=== PATIENT | female | born 1945 | race Caucasian/White ===

== ENCOUNTER 2021-07-14 18:10 | Inpatient (IN) ==
[2021-07-14] MEDS ORDERED: SODIUM CHLORIDE 0.9% 1000ML 1,000 ML IV ONE ×2 (18:16→19:16)
[2021-07-14] MEDS ORDERED: ONDANSETRON INJ 2 MG/ML 2 ML VIAL IV STA (18:16)
[2021-07-14] MEDS ORDERED: fentaNYL citrate 100 MCG/2 ML VIAL IV STA (18:16)
[2021-07-14] MEDS ORDERED: fentaNYL citrate 100 MCG/2 ML VIAL IV PRN (18:16)
--- NOTE | 2021-07-14 18:26 | Emergency Department Note ---
Impression & Plan Small bowel obstruction, Leukocytosis, Lactic acidosis ED Provider Note Name: FAUSTO WOODS Age: 75 Sex: F Arrives Via: Ambulance Informant: Patient, ED Provider: Bereket Rivers MD Chief Complaint: Abdominal pain Impression: As per impressions above Medical Decision Makin-year-old female with past medical history as below who has had previous ashu cystectomy and hysterectomy arrives for evaluation of diffuse abdominal pain. She is quite uncomfortable with primary pain along the left abdomen. She was given multiple rounds of IV pain medications and antiemetics with some improvement. Her CT scan does reveal evidence of small bowel obstruction. Unfortunately cannot use IV dye due to her allergies. I did obtain labs along with a lactic acid revealing an elevated white blood cell count and elevated lactic acid. I will note that I discussed the findings of CT scan with general surgery and they have advised hospitalization and will review the imaging. Patient did have an NG tube placed after some significant difficulty but after placement well over 700 mL output relatively quickly. Patient is feeling much better and stable. The hospitalist team was in to evaluate her while NG tube is being placed and all are on board with plan. I will note that with patient's elevated white blood cell count and her lactic acidosis there is concern for early sepsis. I would think more likely this is due to significant dehydration from inability have oral intake and persistent vomiting. She does not currently have any evidence of perforation. She does have this elevated lactate which would be a concern for ischemia I would also go with dehydration. The plan is to give hydration and monitor how lactic acid moves as well as monitor patient is pain and comfort level. Bedside given these findings she was given empiric antibiotics. Prior Medical Record and Triage/Nursing Notes reviewed by Me Additional history obtained from chart and EMS and hospital records Differentials:Small bowel obstruction, aortic pathology, ischemic gut, renal pathology, biliary pathology, volvulus, pancreatitis amongst others Vital Signs: reviewed and remarkable for no significant abnormalities Interventions: See Below Given the patients BMI >30, IBW was used to calculate the 30ml/kg fluid bolus, thus the 2 L NSS bolus was felt appropriate management for her initial fluid resusciation. Labs:Reviewed and remarkable for leukocytosis and lactic acidosis Imaging:CT abdomen pelvis reveals small bowel obstruction without evidence of perforation as per radiologist read EKG:Per My Interpretation: Indication abdominal pain and vomiting: NSR 67bpm, qtc 464. No Ectopy. No Ischemia. Compared to EKG September 03, 1996, no significant changes. Consults:Dr. Bower of general surgery and Dr. Parekh of [facility]ist Plan: Disposition:Hospitalization. Condition: Fair History of Present Illness:75-year-old female arrives for evaluation of abdominal pain. Patient notes about 4 days of inability to have a bowel movement.. Today worsening nausea vomiting. Now she is having severe abdominal pain. Pain is primarily along the left side of her abdomen. Radiates through to her back. She states she had a small hard firm bowel movement just prior to EMS arrival. No blood in it. No blood in vomit. No trauma falls injuries. Given Zofran 4 mg prior to arrival without much improvement in her nausea. She notes severe pain currently. Patient denies any difficulty breathing, chest pain, syncope, headache, neck pain, sore throat, leg swelling, urinary symptoms nor other symptoms. She has had no recent surgeries on her stomach. She does have a history of a cholecystectomy and a hysterectomy. Patient notes a history of diverticulitis many years ago and notes this may be similar. ROS: See above HPI for pertinent positives & negatives. A total of 10 systems reviewed and were otherwise negative. Past Medical History:Hemochromatosis, hyperlipidemia, hypertension, nephrolithiasis, sleep apnea, type 2 diabetes, anxiety, depression Past Surgical History:Bilateral hip replacement, cystectomy, gallbladder rem oval, hysterectomy, tubal ligation Family History:Glaucoma, hypertension, stroke, type 2 diabetes Social History:Patient is a former smoker, occasional alcoho Home Medications:Aspirin, atenolol, atorvastatin, cardiac, Flutex, Fexofenadine Hydrochloride Allergy fluoxetine, gabapentin, hydrochlorothiazide, losartan, Metformin, multivitamin, trazodone, Tylenol Allergies:You Docktor in all, IV dye Vitals:Blood Pressure: 156/74, Pulse 66, RR 24, T 36.5C, O2 98% on RA Physical Exam: GENERAL: Patient is severely uncomfortable appearing and in moderate distress. EYES: No scleral icterus, unremarkable pupils. ENT: Mucous membranes moist, no nasal congestion. NECK: No masses appreciated, nomeningismus, trachea is midline. RESPIRATORY: No dyspnea. Clear to auscultation and equal bilaterally. No wheeze, no rhonchi. CARDIOVASCULAR: Regular rate and rhythm.No murmurs, rubs, gallops appreciated. GASTROINTESTINAL: Diffuse left sided TTP, with hyperactive bowel sounds no no overt peritonitis. She has no masses appreciated BACK: No midline tenderness, no CVA tenderness EXTREMITIES: Normal motion all extremities, no cyanosis, no edema. NEUROLOGIC: Alert and oriented, no acute motor or sensory deficits, no focal weakness, cranial nerves grossly intact. SKIN: No rash, no jaundice, no diaphoresis. PSYCH: Appropriate GCS: 15 ED Course: Times/Reassessments: Gradually improving pain however continued nausea and agreeable to NG tube after determination SBO. NG tube eventually placed after some difficulty and was confirmed by chest x-ray along with 700+ output. General surgery and hospitalist on board with plan as is patient Bereket Rivers MD Past Med/Surg History Medical History Anxiety Asthma DMII (diabetes mellitus, type 2) HLD (hyperlipidemia) HTN (hypertension) 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 Surgical History H/O: hysterectomy History of cholecystectomy Social History Smoking Status: Never smoker Tobacco Type: Cigarettes Second Hand Exposure: No; Do You Dip or Chew Tobacco: No; Hx Alcohol Use: Yes Alcohol type: wine Hx Substance Use: No Preferred Language: Tajik Communication Ability: Effective Beliefs That Will Affect Care: None Current Living Situation: Spouse Other Information That Helps Us Care for You: No Feels Safe at Home: Yes Safety Concerns: Feels Safe At This Time Assistive Devices: None Assistive Devices Comment: glasses not with patient Allergies Allergies Allergy/AdvReac Type Severity Reaction Status Date / Time Iodinated Contrast Media Allergy Severe Anaphylaxis Verified 07/14/21 18:51 butorphanol [From Stadol] AdvReac Severe HALLUCINATI Verified 07/14/21 18:51 ONS codeine AdvReac Intermediate Gastrointestinal Verified 07/14/21 18:51 Upset Home Meds Home Medications Medication Instructions Recorded Confirmed albuterol sulfate 90 mcg/actuation 1 puff INHALATION DIRECTED PRN 07/14/21 07/14/21 aerosol inhaler atorvastatin 40 mg tablet 40 mg PO DAILY 07/14/21 07/14/21 diltiazem HCl 300 mg 300 mg PO DAILY 07/14/21 07/14/21 capsule,extended release 24 hr fluoxetine 40 mg capsule 40 mg PO DAILY 07/14/21 07/14/21 gabapentin 300 mg capsule 300 mg PO DAILY 07/14/21 07/14/21 metformin 500 mg tablet 1,000 mg PO BID 07/14/21 07/14/21 mupirocin 2 % topical ointment 1 applic TOPICAL DIRECTED 07/14/21 07/14/21 trazodone 50 mg tablet 50 mg PO HS PRN 07/14/21 07/14/21 Results & Data (ED) Vital Signs Vital Signs - 24 hr 07/14/21 18:18 07/14/21 20:58 Temperature 36.5 C Temperature Source Oral Pulse Rate 66 Pulse Rate [Finger] 80 Pulse Rhythm Regular Pulse Rhythm [Finger] Regular Pulse Strength Normal Pulse Strength [Finger] Normal Respiratory Rate 24 18 Respiratory Effort / Characteristics Non-Labored Non-Labored Spontaneous Respiratory Depth Normal Normal Respiratory Pattern Regular Blood Pressure 156/74 H Blood Pressure [Right Arm] 144/79 H Blood Pressure Mean 101 Blood Pressure Mean [Right Arm] 100 Blood Pressure Position Lying Blood Pressure Position [Right Arm] Lying Pulse Oximetry 98 97 Oxygen Delivery Method Room Air Nasal Cannula Oxygen Flow Rate 2 Sepsis Recent Fever Within 48 Hours No Sepsis New/Unexplained Change in Mental Status No Sepsis Action Taken by Nursing No Action Required Laboratory Data Result diagrams: 07/15/21 05:16 07/15/21 05:16 Lab Results 07/14/21 07/14/21 07/14/21 Range/Units 19:02 19:02 19:02 WBC 26.67 H (4.8-10.8) K/uL RBC 4.04 L (4.2-5.4) M/uL Hgb 12.4 (12.0-16.0) g/dL Hct 36.0 L (37-47) % MCV 89.1 (80-100) fL MCH 30.7 (25-34) pg MCHC 34.4 (32-36) g/dL RDW Std Deviation 43.4 (36.4-46.3) fL RDW Coeff of Tayo 13.1 (11.5-14.5) % Plt Count 329 (130-400) K/uL MPV 10.1 (7.4-10.4) fL Immature Gran % (Auto) 0.4 % Neut % (Auto) 87.8 % Lymph % (Auto) 4.5 % Barbour % (Auto) 7.0 % Eos % (Auto) 0.2 % Baso % (Auto) 0.1 % Neut # (Auto) 23.42 H (1.4-6.5) K/uL Lymph # (Auto) 1.20 (1.2-3.4) K/uL Barbour # (Auto) 1.87 H (0.11-0.59) K/uL Eos # (Auto) 0.05 (0-0.5) K/uL Baso # (Auto) 0.02 (0-0.2) K/uL Immature Gran # (Auto) 0.11 H (0.00-0.02) K/uL Sodium 136 (136-145) mmol/L Potassium 3.8 (3.5-5.1) mmol/L Chloride 102 (98-107) mmol/L Carbon Dioxide 21 (21-32) mmol/L Anion Gap 13 H (3-11) BUN 29 H (6-23) mg/dl Creatinine 1.18 (0.6-1.2) mg/dl Est Cr Clr Drug Dosing 43.1 ml/min Est GFR ( Amer) 53.0 ml/min Est GFR (Non-Af Amer) 45.7 ml/min BUN/Creatinine Ratio 24.6 H (10-20) Glucose 143 H (70-99(Fasting)) mg/dl Lactate (0.4-2.0) mmol/L Calcium 9.5 (8.5-10.1) mg/dl Total Bilirubin 0.5 (0.2-1.0) mg/dl Direct Bilirubin 0.1 (0-0.2) mg/dl AST 24 (13-39) U/L ALT 23 (7-52) U/L Alkaline Phosphatase 88 (34-104) U/L Troponin I < 0.03 (0-0.04) ng/ml Total Protein 7.8 (6.0-8.3) gm/dl Albumin 4.4 (3.4-5.0) gm/dl Lipase 32 (11-82) U/L Hepatitis C Ab Screen Neg (Neg) SARS-CoV-2, RNA, NAAT (NEGATIVE) 07/14/21 07/14/21 Range/Units 19:46 20:56 WBC (4.8-10.8) K/uL RBC (4.2-5.4) M/uL Hgb (12.0-16.0) g/dL Hct (37-47) % MCV (80-100) fL MCH (25-34) pg MCHC (32-36) g/dL RDW Std Deviation (36.4-46.3) fL RDW Coeff of Tayo (11.5-14.5) % Plt Count (130-400) K/uL MPV (7.4-10.4) fL Immature Gran % (Auto) % Neut % (Auto) % Lymph % (Auto) % Barbour % (Auto) % Eos % (Auto) % Baso % (Auto) % Neut # (Auto) (1.4-6.5) K/uL Lymph # (Auto) (1.2-3.4) K/uL Barbour # (Auto) (0.11-0.59) K/uL Eos # (Auto) (0-0.5) K/uL Baso # (Auto) (0-0.2) K/uL Immature Gran # (Auto) (0.00-0.02) K/uL Sodium (136-145) mmol/L Potassium (3.5-5.1) mmol/L Chloride (98-107) mmol/L Carbon Dioxide (21-32) mmol/L Anion Gap (3-11) BUN (6-23) mg/dl Creatinine (0.6-1.2) mg/dl Est Cr Clr Drug Dosing ml/min Est GFR ( Amer) ml/min Est GFR (Non-Af Amer) ml/min BUN/Creatinine Ratio (10-20) Glucose (70-99(Fasting)) mg/dl Lactate 3.1 H* (0.4-2.0) mmol/L Calcium (8.5-10.1) mg/dl Total Bilirubin (0.2-1.0) mg/dl Direct Bilirubin (0-0.2) mg/dl AST (13-39) U/L ALT (7-52) U/L Alkaline Phosphatase (34-104) U/L Troponin I (0-0.04) ng/ml Total Protein (6.0-8.3) gm/dl Albumin (3.4-5.0) gm/dl Lipase (11-82) U/L Hepatitis C Ab Screen (Neg) SARS-CoV-2, RNA, NAAT NEGATIVE (NEGATIVE) Administered Medications Heparin Sodium (Porcine) (Heparin Sod 5,000 Unit/0.5 Ml Vial) 5,000 units SQ Q12 RAINE Stop: 08/13/21 22:52 Last Admin: 07/15/21 10:05 Dose: 5,000 units Documented by: [id number] Admin: 07/14/21 23:52 Dose: 5,000 units Documented by: [id number] Hydromorphone HCl (Hydromorphone Inj 0.5 Mg/0.5 Ml Syr) 0.25 mg IV Q4 PRN PRN Reason: Pain Stop: 07/28/21 22:52 Last Admin: 07/15/21 13:52 Dose: 0.25 mg Documented by: [id number] Admin: 07/15/21 07:39 Dose: 0.25 mg Documented by: [id number] Admin: 07/15/21 02:44 Dose: 0.25 mg Documented by: [id number] Lactated Ringer's (Lr) 1,000 mls @ 100 mls/hr IV .Q10H RAINE Stop: 08/13/21 20:59 Last Admin: 07/15/21 15:12 Dose: 100 mls/hr Documented by: [id number] Infusion: 07/15/21 15:12 Dose: 100 mls/hr Documented by: [id number] Infusion: 07/15/21 15:08 Dose: 100 mls/hr Documented by: [id number] Admin: 07/15/21 07:39 Dose: 110 mls/hr Documented by: [id number] Infusion: 07/15/21 07:39 Dose: 110 mls/hr Documented by: [id number] Admin: 07/14/21 23:12 Dose: 110 mls/hr Documented by: [id number] Mupirocin (Mupirocin 2% Oint 22 Gm Tube) 1 appln EXT BID RAINE Stop: 08/14/21 08:59 Last Admin: 07/15/21 10:05 Dose: 1 appln Documented by: [id number] Ondansetron HCl (Ondansetron Inj 2 Mg/Ml 2 Ml Vial) 4 mg IV Q8 PRN PRN Reason: nausea/vomiting Stop: 08/13/21 21:10 Last Admin: 07/15/21 02:41 Dose: 4 mg Documented by: [id number] Discontinued Medications Fentanyl Citrate (Fentanyl Citrate 100 Mcg/2 Ml Vial) 50 mcg IV Q15M PRN PRN Reason: Pain Stop: 07/28/21 18:15 Last Admin: 07/14/21 19:00 Dose: 50 mcg Documented by: [id number] Fentanyl Citrate (Fentanyl Citrate 100 Mcg/2 Ml Vial) 50 mcg IV NOW STA Stop: 07/14/21 18:17 Last Admin: 07/14/21 18:24 Dose: 50 mcg Documented by: [id number] Hydromorphone HCl (Hydromorphone Inj 0.5 Mg/0.5 Ml Syr) 0.5 mg IV NOW STA Stop: 07/14/21 19:31 Last Admin: 07/14/21 20:12 Dose: 0.5 mg Documented by: [id number] Sodium Chloride (Nss 1000ml) 1,000 mls @ 999 mls/hr IV .Q1H1M ONE Stop: 07/14/21 19:16 Last Infusion: 07/14/21 21:32 Dose: 0 mls/hr Documented by: [id number] Admin: 07/14/21 18:24 Dose: 999 mls/hr Documented by: [id number] Promethazine HCl (Phenergan) 12.5 mg in 50.5 mls @ 202 mls/hr IV NOW STA Stop: 07/14/21 19:20 Last Infusion: 07/14/21 19:37 Dose: 0 mls/hr Documented by: [id number] Admin: 07/14/21 19:13 Dose: 202 mls/hr Documented by: [id number] Sodium Chloride (Nss 1000ml) 1,000 mls @ 999 mls/hr IV .Q1H1M ONE Stop: 07/14/21 20:16 Last Infusion: 07/14/21 21:32 Dose: 0 mls/hr Documented by: [id number] Admin: 07/14/21 20:12 Dose: 999 mls/hr Documented by: [id number] Sodium Chloride (Nss 1000ml) 500 mls @ 999 mls/hr IV .Q31M ONE Stop: 07/14/21 20:49 Last Admin: 07/14/21 23:29 Dose: Not Given Documented by: [id number] Piperacillin Sod/Tazobactam Sod (Zosyn) 4.5 gm in 120 mls @ 240 mls/hr IV NOW ONE Stop: 07/14/21 20:48 Last Infusion: 07/14/21 21:32 Dose: 0 mls/hr Documented by: [id number] Admin: 07/14/21 20:52 Dose: 240 mls/hr Documented by: [id number] Piperacillin Sod/Tazobactam (Sod 3.375 gm/ Dextrose) 115 mls @ 28.75 mls/hr IV Q8H RAINE; Protocol Stop: 07/25/21 01:59 Last Infusion: 07/15/21 13:48 Dose: 0 mls/hr Documented by: [id number] Admin: 07/15/21 10:05 Dose: 28.8 mls/hr Documented by: [id number] Infusion: 07/15/21 06:45 Dose: 0 mls/hr Documented by: [id number] Admin: 07/15/21 02:45 Dose: 28.8 mls/hr Documented by: [id number] Magnesium Sulfate/Dextrose (Magnesium Sulfate / D5w) 1 gm in 100 mls @ 50 mls/hr IV Q2H RAINE Stop: 07/15/21 14:44 Last Admin: 07/15/21 13:45 Dose: 50 mls/hr Documented by: [id number] Infusion: 07/15/21 13:36 Dose: 50 mls/hr Documented by: [id number] Admin: 07/15/21 11:36 Dose: 50 mls/hr Documented by: [id number] Lorazepam (Lorazepam 2 Mg/1 Ml Vial) 0.5 mg IV NOW STA Stop: 07/14/21 19:31 Last Admin: 07/14/21 20:12 Dose: 0.5 mg Documented by: [id number] Lorazepam (Lorazepam 2 Mg/1 Ml Vial) 0.5 mg IV NOW STA Stop: 07/14/21 21:33 Last Admin: 07/14/21 21:36 Dose: 0.5 mg Documented by: [id number] Ondansetron HCl (Ondansetron Inj 2 Mg/Ml 2 Ml Vial) 4 mg IV NOW STA Stop: 07/14/21 18:17 Last Admin: 07/14/21 18:24 Dose: 4 mg Documented by: [id number] Discharge Plan Visit Data Chief Complaint: Abdominal Pain ED Provider: Bereket Rivers Discharge Problem: Small bowel obstruction, Leukocytosis, Lactic acidosis Patient Disposition: Admitted As Inpatient Discharge Instructions Interventions: ED Discharge Assessment Last Done: 07/14/21 22:14 Discharge Problem: Leukocytosis Qualifiers: Leukocytosis type: unspecified Qualified Code(s): D72.829 - Elevated white blood cell count, unspecified
[2021-07-14] MEDS ORDERED: PROMETHAZINE 12.5 MG/50.5 ML BAG IV STA (19:06)
[2021-07-14 19:12] LABS: Hemoglobin 12.4 g/dL (12.0-16.0); Mean Corpuscular Hemoglobin 30.7 pg (25-34); Mean Corpuscular Hgb Conc 34.4 g/dL (32-36); Mean Corpuscular Volume 89.1 fL (80-100); Mean Platelet Volume 10.1 fL (7.4-10.4); Platelet Count 329 K/uL (130-400); RDW Coefficient of Variation 13.1 % (11.5-14.5); RDW Standard Deviation 43.4 fL (36.4-46.3); Red Blood Count 4.04 M/uL (4.2-5.4); White Blood Count 26.67 K/uL (4.8-10.8)
--- NOTE | 2021-07-14 19:22 | CT Scan Report ---
ABDOMEN AND PELVIS CT WITHOUT CONTRAST CT DOSE: 541.02 mGy.cm HISTORY: Acute generalized abdominal pain diffuse abdominal pain TECHNIQUE: Multiaxial CT images of the abdomen and pelvis were performed without contrast. A dose lo wering technique was utilized adhering to the principles of ALARA. COMPARISON STUDY: Chest and rib radiographs 05/05/2021 FINDINGS: The heart is upper limits of normal in size. Mild bibasilar atelectasis/scarring. 5 mm steve d nodule of the lateral basal segment left lower lobe, image 47. No pneumatosis or pneumoperitoneum. The unenhanced spleen, pancreas and adrenal glands are unremarkable. Cholecystectomy. Intrahepatic an d extrahepatic pneumobilia is suggestive of prior sphincterotomy. The liver is otherwise unremarkable . Parenchymal scarring with linear 8 mm cortical calcification of the superior pole left kidney. No ure teral calculi or hydronephrosis. Partially decompressed or bladder with mild wall thickening. The lakeisha jeremy appears surgically absent. Suboptimal evaluation of the pelvic structures secondary to streak art ifact from bilateral hip total joint arthroplasties. Atherosclerosis of the aorta without aneurysm. N o adenopathy. Small hiatal hernia. Fluid distended distal esophagus. Numerous mildly dilated air and fluid-filled l oops of small bowel measure up to 3.0 cm. Air-fluid levels are noted along with several stool-filled loops of small bowel. There is a transition point noted within the abdominal right lower quadrant on image 228 with decompressed loops of small bowel noted distally. Severe colonic diverticulosis withou t acute diverticulitis. Normal appendix. Unremarkable soft tissues. Degenerative changes of the spine . IMPRESSION: 1. Small bowel obstruction with transition point present within the abdominal right lower quadrant, l ikely on the basis of adhesions. 2. Small hiatal hernia. 3. Normal appendix. 4. Colonic diverticulosis. 5. Additional findings as above. ACT 112: Negative or not required by law. The above report was generated using voice recognition software. It may contain grammatical, syntax o r spelling errors. Electronically signed by: Prakash Dia M.D. 07/14/2021 7:20 PM
[2021-07-14] MEDS ORDERED: HYDROmorphone INJ 0.5 MG/0.5 ML SYR IV STA (19:30)
[2021-07-14] MEDS ORDERED: LORazepam 2 MG/1 ML VIAL IV STA ×2 (19:30→21:32)
[2021-07-14 19:38] LABS: Troponin I < 0.03 ng/ml (0-0.04)
[2021-07-14 19:39] LABS: Basophils # (auto) 0.02 K/uL (0-0.2); Basophils % (auto) 0.1 %; Eosinophils # (auto) 0.05 K/uL (0-0.5); Eosinophils % (auto) 0.2 %; Immature Granulocytes # (auto) 0.11 K/uL (0.00-0.02); Immature Granulocytes % (auto) 0.4 %; Lymphocytes % (auto) 4.5 %; Monocytes # (auto) 1.87 K/uL (0.11-0.59); Neutrophils # (auto) 23.42 K/uL (1.4-6.5); Neutrophils % (auto) 87.8 %
[2021-07-14 19:41] LABS: Alanine Aminotransferase 23 U/L (7-52); Albumin Level 4.4 gm/dl (3.4-5.0); Alkaline Phosphatase 88 U/L (34-104); Anion Gap 13 (3-11); Aspartate Aminotransferase 24 U/L (13-39); BUN Creatinine Ratio 24.6 (10-20); Bilirubin Direct 0.1 mg/dl (0-0.2); Bilirubin,Total 0.5 mg/dl (0.2-1.0); Blood Urea Nitrogen 29 mg/dl (6-23); Calcium 9.5 mg/dl (8.5-10.1); Carbon Dioxide 21 mmol/L (21-32); Chloride 102 mmol/L (98-107); Creatinine Clr Calc Pharmacy 43.1 ml/min; Est GFR (Non-African American) 45.7 ml/min; Glucose 143 mg/dl (70-99(Fasting)); Lipase 32 U/L (11-82); Potassium 3.8 mmol/L (3.5-5.1); Sodium 136 mmol/L (136-145); Total Protein 7.8 gm/dl (6.0-8.3)
--- NOTE | 2021-07-14 19:59 | Communication Note ---
75 y/o with mult med problems, presented with abdominal pain. Prior surgery. CT reviewed, sbo with transition in RLQ, no e/o ischemia. Elevated wbc, likely reactive. Recommend NG, admit to medicine. Surgery will follow. Date of Service: July 14, 2021
[2021-07-14] MEDS ORDERED: SODIUM CHLORIDE 0.9% 1000ML 500 ML IV ONE (20:19)
[2021-07-14] MEDS ORDERED: PIPERACILLIN/TAZOBACTAM 4.5 GM/120 ML BAG IV ONE (20:19)
[2021-07-14] MEDS ORDERED: PIPERACILL/TAZOBAC CONSULT ACTIVE PRN ×2 (20:19→20:53)
--- NOTE | 2021-07-14 21:02 | XRay Report ---
XR chest 1V portable HISTORY: 75 years-old Female ng tube placement status post placement of an enteric tube. Small bowel obstruction. COMPARISON: CT abdomen and pelvis of same day, chest radiograph 05/05/2021 TECHNIQUE: AP view of the chest FINDINGS: Enteric tube overlies the midline of the upper chest, approximately 2.8 cm superior to the james. Th e cardiac silhouette is enlarged. Cholecystectomy. Air-filled loops of bowel are noted within the upp er abdomen. Filling apices are excluded from the [id number]. No pneumothorax, large pleural effusi on or overt pulmonary edema. Mild subsegmental bibasilar atelectasis/scarring. IMPRESSION: Distal tip of the enteric tube projects over the midline of the upper chest a few centime ters superior to the james. Repositioning with follow-up imaging recommended. ACT 112: Negative or not required by law. The above report was generated using voice recognition software. It may contain grammatical, syntax o r spelling errors. Electronically signed by: Prakash Dia M.D. 07/14/2021 9:00 PM
--- NOTE | 2021-07-14 21:34 | History & Physical Report ---
Date of Service July 14, 2021 Assessment & Plan (1) SBO (small bowel obstruction): Plan: Actue pain with bloating- SBO with transition point no perforation appreciated on CT scan - GS consultation - appreciate following - NGT initially placed- not in correct position- Repositioned with Xray confirmation- read pending. - Consider contrast with small bowel follow through within 24-48 hours further evaluation - NPO - LR 110 ml/hr - Zosyn- follow leukocytosis and lactate- likely acute stress response to the above - cultures pending (2) 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: Plan: History of around 2014- with emergency medical services coordinator in [place] - She was placed on Diltiazem at that time with no re-occurence - was never on anticoagulation for this - NSR on monitor (3) DMII (diabetes mellitus, type 2): Plan: Hold Metformin - BG q6 hours - add coverage if >180 (4) HLD (hyperlipidemia): Plan: Continue Atorvastatin 40 daily (5) Asthma: Plan: Continue albuterol prn (6) Anxiety: Plan: Continue Fluoxetine (7) HTN (hypertension): Plan: Family practice note from Jul 02, 2021 - Patient on HCTZ and Losartan - Can add IV PRN medications if needed - currently controlled (8) Keratosis: Plan: Continue with mupirocin 2% cream to chest History of Present Illness Primary Care Provider: Rashard Elaine 75 YOF with past medical history of: 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 (? PAF), HLD, asthma, DM II, DM neuropathy, anxiety, difficulty sleeping, hemochromatosis. Patient comes to the EMD today for abrupt onset of abdominal pain and bloating that occurred at 1600 today. This was followed by sharp pain on both sides of her abdomen and feeling the urge to defecate. She was unable to defecate and then had multiple bouts of yellow green emesis. In the EMD the patient had routine labs drawn, and CT of her abdomen and pelvis without contrast. She was noted to have SBO with transition point and hiatal hernia, diverticulosis without diverticulitis. She has had some with relief of nausea and decrease in abdominal bloating feeling per her report. NGT placed. Her labs were remarkable for leukocytosis of 26 predominant neutrophils, lactate 3.1. She was given 2 liters of 0.9% saline and started on Zosyn. General Surgery was consulted by the EMD. Patient has past abdominal surgical history of cholecystectomy and hysterectomy. She thinks she may have had this occur before, but is drowsy from the pain medications. Patient will be admitted for continuation of NGT to LIWS, IV fluids with LR, bowel rest with NPO and continuation of Zosyn while following her WBC and lactate, which is most likely at this time acute stress reaction but will follow clinically. Patient COVID test on admission is: NEGATIVE Allergies Allergy/AdvReac Type Severity Reaction Status Date / Time Iodinated Contrast Media Allergy Severe Anaphylaxis Verified 07/14/21 18:51 butorphanol [From Stadol] AdvReac Severe HALLUCINATI Verified 07/14/21 18:51 ONS codeine AdvReac Intermediate Gastrointestinal Verified 07/14/21 18:51 Upset Home Medications Medication Instructions Recorded Confirmed Type albuterol sulfate 90 mcg/actuation 1 puff INHALATION DIRECTED PRN 07/14/21 07/14/21 History aerosol inhaler atorvastatin 40 mg tablet 40 mg PO DAILY 07/14/21 07/14/21 History diltiazem HCl 300 mg 300 mg PO DAILY 07/14/21 07/14/21 History capsule,extended release 24 hr fluoxetine 40 mg capsule 40 mg PO DAILY 07/14/21 07/14/21 History gabapentin 300 mg capsule 300 mg PO DAILY 07/14/21 07/14/21 History metformin 500 mg tablet 1,000 mg PO BID 07/14/21 07/14/21 History mupirocin 2 % topical ointment 1 applic TOPICAL DIRECTED 07/14/21 07/14/21 History trazodone 50 mg tablet 50 mg PO HS PRN 07/14/21 07/14/21 History Past Med/Surg History Medical History (Updated 07/14/21 @ 22:12 by NIKUNJ Avila) Anxiety Asthma DMII (diabetes mellitus, type 2) HLD (hyperlipidemia) HTN (hypertension) 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 Surgical History (Updated 07/14/21 @ 21:29 by NIKUNJ Avila) H/O: hysterectomy History of cholecystectomy Social History (Updated 07/14/21 @ 21:48 by NIKUNJ Avila) Smoking Status: Former smoker Tobacco Type: Cigarettes Preferred Language: French Feels Safe at Home: Yes Review of Systems Review of Systems: REVIEW OF SYSTEMS: Constitutional: No fever, sweats or chills Eyes: No diplopia, no worsening or blurred vision ENT: normal hearing, no trouble swallowing Respiratory: No cough, sputum, dyspnea at rest or on exertion Cardiovascular: No chest pain, tightness or palpitations Abdomen: (+) bloating, pain, nausea, vomiting, Musculoskeletal: No joint pain, calf pain, swelling Neurologic: No weakness, numbness/tingling, or balance problems Psychiatric: (+) anxiety Skin: (+) rash lesions Physical Exam Physical Exam: PHYSICAL EXAM: General: awake, drowsy, no apparent distress Head: Normocephalic, atraumatic ENT: PERRL, EOMI, no pharyngeal exudate, mucous membranes dry Neuro: AAO x 3, speech clear and appropriate, strength intact bilaterally 5/5, sensation intact and equal all extremities and dermatomes, no pronator drift Chest: equal rise and fall of the chest, no accessory muscle use, no heaves or thrills, Clear to auscultation, Cardiac: Regular rate and rhythm, telemetry reviewed, skin warm dry, cap refill <3 seconds, peripheral pulses +2 no JVD, no murmur, no JVD, no edema GI: Hypoactive bowel sounds throughout, tympany on percussion, pain with palpation to bilateral upper quads, no rebound and no guarding : Spontaneously voiding, no pain, no CVA tenderness, Extremities: Normal inspection, no peripheral edema or erythema, calfs nontender to palpation Psych: Normal mood and affect Skin: keratotic lesions to chest and shoulder Results & Data Results & Data ([facility]) Vital Signs (Past 12 Hours) Vital Signs Temp Pulse Pulse Resp BP BP Pulse Ox 07/14/21 20:58 80 18 144/79 H 97 07/14/21 18:18 36.5 C 66 24 156/74 H 98 Laboratory Results Abnormal lab results 07/14/21 07/14/21 07/14/21 Range/Units 19:02 19:02 19:46 WBC 26.67 H (4.8-10.8) K/uL RBC 4.04 L (4.2-5.4) M/uL Hct 36.0 L (37-47) % Neut # (Auto) 23.42 H (1.4-6.5) K/uL [place] # (Auto) 1.87 H (0.11-0.59) K/uL Immature Gran # (Auto) 0.11 H (0.00-0.02) K/uL Anion Gap 13 H (3-11) BUN 29 H (6-23) mg/dl BUN/Creatinine Ratio 24.6 H (10-20) Glucose 143 H (70-99(Fasting)) mg/dl Lactate 3.1 H* (0.4-2.0) mmol/L Diagnostic Findings Abdomen/Pelvis CT 07/14/21 18:[address] WITHOUT CONTRAST CT DOSE: 541.02 mGy.cm HISTORY: Acute generalized abdominal pain diffuse abdominal pain TECHNIQUE: Multiaxial CT images of the abdomen and pelvis were performed without contrast. A dose lowering technique was utilized adhering to the principles of ALARA. COMPARISON STUDY: Chest and rib radiographs 05/05/2021 FINDINGS: The heart is upper limits of normal in size. Mild bibasilar atelectasis/scarring. 5 mm solid nodule of the lateral basal segment left lower lobe, image 47. No pneumatosis or pneumoperitoneum. The unenhanced spleen, pancreas and adrenal glands are unremarkable. Cholecystectomy. Intrahepatic and extrahepatic pneumobilia is suggestive of prior sphincterotomy. The liver is otherwise unremarkable. Parenchymal scarring with linear 8 mm cortical calcification of the superior pole left kidney. No ureteral calculi or hydronephrosis. Partially decompressed or bladder with mild wall thickening. The uterus appears surgically absent. Suboptimal evaluation of the pelvic structures secondary to streak artifact from bilateral hip total joint arthroplasties. Atherosclerosis of the aorta without aneurysm. No adenopathy. Small hiatal hernia. Fluid distended distal esophagus. Numerous mildly dilated air and fluid-filled loops of small bowel measure up to 3.0 cm. Air-fluid levels are noted along with several stool-filled loops of small bowel. There is a transition point noted within the abdominal right lower quadrant on image 228 with decompressed loops of small bowel noted distally. Severe colonic diverticulosis without acute diverticulitis. Normal appendix. Unremarkable soft tissues. Degenerative changes of the spine. IMPRESSION: 1. Small bowel obstruction with transition point present within the abdominal right lower quadrant, likely on the basis of adhesions. 2. Small hiatal hernia. 3. Normal appendix. 4. Colonic diverticulosis. 5. Additional findings as above. ACT 112: Negative or not required by law. The above report was generated using voice recognition software. It may contain grammatical, syntax or spelling errors. Electronically signed by: Prakash Dia M.D. 07/14/2021 7:20 PM Chest X-Ray 07/14/21 20:41 XR chest 1V portable HISTORY: 75 years-old Female ng tube placement status post placement of an enteric tube. Small bowel obstruction. COMPARISON: CT abdomen and pelvis of same day, chest radiograph 05/05/2021 TECHNIQUE: AP view of the chest FINDINGS: Enteric tube overlies the midline of the upper chest, approximately 2.8 cm superior to the james. The cardiac silhouette is enlarged. Cholecystectomy. Air-filled loops of bowel are noted within the upper abdomen. Filling apices are excluded from the [id number]. No pneumothorax, large pleural effusion or overt pulmonary edema. Mild subsegmental bibasilar atelectasis/scarring. IMPRESSION: Distal tip of the enteric tube projects over the midline of the upper chest a few centimeters superior to the james. Repositioning with follow- up imaging recommended. ACT 112: Negative or not required by law. The above report was generated using voice recognition software. It may contain grammatical, syntax or spelling errors. Electronically signed by: Prakash Dia M.D. 07/14/2021 9:00 PM Medications Administered Home Medications albuterol sulfate 90 mcg/actuation aerosol inhaler 1 puff INHALATION DIRECTED PRN 07/14/21 [History Confirmed 07/14/21] atorvastatin 40 mg tablet 40 mg PO DAILY 07/14/21 [History Confirmed 07/14/21] diltiazem HCl 300 mg capsule,extended release 24 hr 300 mg PO DAILY 07/14/21 [History Confirmed 07/14/21] fluoxetine 40 mg capsule 40 mg PO DAILY 07/14/21 [History Confirmed 07/14/21] gabapentin 300 mg capsule 300 mg PO DAILY 07/14/21 [History Confirmed 07/14/21] metformin 500 mg tablet 1,000 mg PO BID 07/14/21 [History Confirmed 07/14/21] mupirocin 2 % topical ointment 1 applic TOPICAL DIRECTED 07/14/21 [History Confirmed 07/14/21] trazodone 50 mg tablet 50 mg PO HS PRN 07/14/21 [History Confirmed 07/14/21] Active Medications Fentanyl Citrate (Fentanyl Citrate 100 Mcg/2 Ml Vial) 50 mcg IV Q15M PRN PRN Reason: Pain Stop: 07/28/21 18:15 Last Admin: 07/14/21 19:00 Dose: 50 mcg Documented by: Piperacillin Sod/Tazobactam (Sod 3.375 gm/ Dextrose) 115 mls @ 28.75 mls/hr IV Q8H RAINE; Protocol Stop: 07/25/21 01:59 Lactated Ringer's (Lr) 1,000 mls @ 110 mls/hr IV .Q9H6M RAINE Stop: 08/13/21 20:59 Miscellaneous Information (Piperacill/Tazobac Consult Active) 1 ea N/A UD PRN PRN Reason: Consult Stop: 08/13/21 20:52 Ondansetron HCl (Ondansetron Inj 2 Mg/Ml 2 Ml Vial) 4 mg IV Q8 PRN PRN Reason: nausea/vomiting Stop: 08/13/21 21:10 ECG Additional Comments: Normal sinus rhythm Normal ECG When compared with ECG of 03-SEP-1996 22:21, T wave inversion now evident in Inferior leads T wave amplitude has decreased in Anterior leads Code Status & VTE Plan Code Status CODE: DNR/DNI VTE: SCDS, Heparin 5000 units sub q q12 VTE Prophylaxis Plan VTE Prophylaxis will be ordered: Yes Supervising Physician Co-Signing Physician Notes Patient was seen and examined independently I discussed the case with Enzo CALVIN I reviewed pertinent past medical social family history and also the plan of care and agree with the plan of care. Patient with a distant history of abdominal surgeries including cholecystectomy and hysterectomy presents with a bowel obstruction with signs of physiological distress. Surgical consultation recommended conservative management at this point in time NG tube initial placement was incorrect and replacement is underway fluid support parenteral pain medications. She is fairly comfortable when I saw her she had absent bowel sounds in her abdomen her abdomen was distended and tympanic there is no rebound but she was uncomfortable to examination. Her lungs had decreased breath sounds at the bases likely due to her abdominal distention her heart was regular she is awake alert appropriate. She was started on antibiotics in the emergency department these will be continued ER Zosyn IV fluids and parenteral pain medications as well as antiemetics with surgical team following along with us will be undertaken Any exceptions will be noted below PG Care Time/CCT Total # of Minutes Spent Total Time Spent with Patient: Total time spent is greater than 50% in coordination of care (as documented) at patient's floor/unit and/or counseling patient: Coding Level of Care Code 32076 Initial Inpt Care Lvl 3 Diagnoses SBO (small bowel obstruction) K56.609 DMII (diabetes mellitus, type 2) E11.9 HLD (hyperlipidemia) E78.5 Asthma J45.909 Anxiety F41.9 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 R00.2 HTN (hypertension) I10 Keratosis L57.0
[2021-07-14] MEDS ORDERED: CARBOHYDRATES FOR HYPOGLYCEMIA PO PRN (22:53)
[2021-07-14] MEDS ORDERED: ALBUTEROL HFA 8 GM INHALER INH PRN (22:53)
[2021-07-14] MEDS ORDERED: DEXTROSE 50% 50 ML SYRINGE IV PRN (22:53)
[2021-07-14] MEDS ORDERED: GLUCOSE 40% GEL 15 GM TUBE PO PRN (22:53)
[2021-07-14] MEDS ORDERED: GLUCAGON FOR INJ 1 MG VIAL SQ PRN (22:53)
[2021-07-14] MEDS ORDERED: GLUCOSE 10 TABS/TUBE PO PRN (22:53)
[2021-07-14] MEDS: LACTATED RINGER'S 1,000 ML IV SCH (23:12)
[2021-07-14] MEDS: HEPARIN SOD 5,000 UNIT/0.5 ML VIAL SQ SCH (23:52)
[2021-07-15] MEDS: ONDANSETRON INJ 2 MG/ML 2 ML VIAL IV PRN (02:41)
[2021-07-15] MEDS: HYDROmorphone INJ 0.5 MG/0.5 ML SYR IV PRN ×5 (02:44→23:50)
[2021-07-15] MEDS: PIPERACILLIN/TAZOBACTAM 3.375 GM in DEXTROSE 5% 100 ML IV SCH ×2 (02:45→10:05)
[2021-07-15 03:15] LABS: Appearance Urine Clear (Clear); Bacteria Urine Automated Negative (Negative); Bilirubin Urine Negative (Negative); Blood Urine Negative (Negative); Color Urine Yellow; Epithelial Cell Urine Auto 20-30 /lpf (0-5); Glucose Urine UA Negative (Negative); Ketones Urine Negative (Negative); Leukocyte Esterase Urine 2+ (Negative); Nitrite Urine Negative (Negative); Protein Urine Negative (Negative); RBC Urine Automated 0-4 /hpf (0-4); Specific Gravity Urine 1.021 (1.000-1.030); Urobilinogen Urine Negative (Negative)
[2021-07-15 06:03] LABS: Basophils # (auto) 0.01 K/uL (0-0.2); Basophils % (auto) 0.1 %; Eosinophils # (auto) 0.02 K/uL (0-0.5); Eosinophils % (auto) 0.2 %; Hematocrit (blood only) 32.2 % (37-47); Hemoglobin 10.7 g/dL (12.0-16.0); Immature Granulocytes # (auto) 0.01 K/uL (0.00-0.02); Immature Granulocytes % (auto) 0.1 %; Lymphocytes # (auto) 0.57 K/uL (1.2-3.4); Lymphocytes % (auto) 5.8 %; Mean Corpuscular Hemoglobin 30.1 pg (25-34); Mean Corpuscular Hgb Conc 33.2 g/dL (32-36); Mean Corpuscular Volume 90.7 fL (80-100); Mean Platelet Volume 10.6 fL (7.4-10.4); Monocytes # (auto) 1.27 K/uL (0.11-0.59); Neutrophils # (auto) 7.87 K/uL (1.4-6.5); Neutrophils % (auto) 80.8 %; Platelet Count 294 K/uL (130-400); RDW Coefficient of Variation 13.3 % (11.5-14.5); RDW Standard Deviation 44.3 fL (36.4-46.3); Red Blood Count 3.55 M/uL (4.2-5.4); White Blood Count 9.75 K/uL (4.8-10.8)
[2021-07-15 06:42] LABS: BUN Creatinine Ratio 26.5 (10-20); Calcium 7.6 mg/dl (8.5-10.1); Creatinine Clr Calc Pharmacy 50.6 ml/min; Est GFR (African American) 66.3 ml/min; Est GFR (Non-African American) 57.2 ml/min; Magnesium 1.4 mg/dl (1.7-2.4); Potassium 3.7 mmol/L (3.5-5.1)
--- NOTE | 2021-07-15 07:11 | Surgery Consultation ---
Date of Consultation July 15, 2021 Assessment & Plan (1) SBO (small bowel obstruction): This is a 75y F with a PMH of paroxysmal afib, HLD, asthma, IBS, HTN, DM2 who presents to the [facility] on 07/14/21 with complaints of abdominal pain, associated with nausea/vomiting starting yesterday. Workup in the ER with a CT a/p revealed findings of a small bowel obstruction with transition point present within the abdominal right lower quadrant, likely on the basis of adhesions. WBC initially 29, now 9 on zosyn. Vital signs are stable. On exam abdomen is soft, mildly distended, with pain across mid abdomen. She is noted to have scars from her previous surgeries. She has a past surgical history significant for an open cholecystectomy, hysterectomy, and what sounds like surgery for retained a retained cystic duct stone. NGT is in place draining 250cc bilious fluid in canister. For now we recommend a trial of conservative management, NPO with IVF, NGT for decompression. No plans for acute surgical intervention at this time. We will follow. Supervising Physician Co-Signing Physician Notes Patient seen and examined, labs and imaging reviewed, agree with above. 75-year-old female admitted for small bowel obstructions, likely secondary to adhesions from multiple prior surgeries. She has not passed flatus but is feeling better since placement of the NG tube admission overnight. On exam she is afebrile with stable vitals. Her abdomen is soft, mildly distended, mildly tender to palpation in all 4 quadrants. No guarding or rebound. WBC 9 down from 27. I personally reviewed and interpreted the CT scan and note dilated and some fecalized bowel with a transition point in the right lower quadrant in the mid ileum. Her KUB this morning shows air in the colon and less distention. Small bowel obstruction, appears improved based on imaging but no flatus yet Continue NG tube to low intermittent wall suction, ambulation, continue nonoperative management for now If no improvement within the next 24 to 48 hours, may recommend a contrasted study Surgery will continue to follow, call with questions or concerns History of Present Illness Attending Physician: William Xiong History of Present Illness This is a 75y F with a PMH of paroxysmal afib, HLD, asthma, IBS, HTN, DM2 who pr esents to the [facility] on 07/14/21 with complaints of abdominal pain. Patient reports her pain started yesterday. She woke up and ate oatmeal and a banana around 8am and then took her usual dose of Metamucil around 9:30am. Thereafter she ran some errands and felt like her belly was rumbling and when she got home it developed into a mild belly ache. For dinner she ate a few scallop potatoes without impro vement in symptoms. After dinner her pain progressively worsened rating her discomfort up to a 10/10 in severity across her mid abdomen, associated with nausea/vomiting. She presented to the ER for evaluation. A CT a/p was obtained and revealed a small bowel obstruction with transition point present within the abdominal right lower quadrant, likely on the basis of adhesions. Patient reports + chills and some shortness of breath related to the abdominal pressure/bloating she was having. Her last BM was on Wednesday. She is not passing flatus. She says she will typically go a couple days without having a BM. Her past surgical history includes an open cholecystectomy, hysterectomy, tubal ligation, and what sounds like surgery for retained a retained cystic duct stone. She reports this is the first time she has been told she has a bowel obstruction. She currently is resting in bed with NGT in place with some improvement of her symptoms, less abdominal bloating/nausea, and currently rates pain a 4/10. Allergies Allergy/AdvReac Type Severity Reaction Status Date / Time Iodinated Contrast Media Allergy Severe Anaphylaxis Verified 07/14/21 18:51 butorphanol [From Stadol] AdvReac Severe HALLUCINATI Verified 07/14/21 18:51 ONS codeine AdvReac Intermediate Gastrointestinal Verified 07/14/21 18:51 Upset Home Medications Medication Instructions Recorded Confirmed Type albuterol sulfate 90 mcg/actuation 1 puff INHALATION DIRECTED PRN 07/14/21 07/14/21 History aerosol inhaler atorvastatin 40 mg tablet 40 mg PO DAILY 07/14/21 07/14/21 History diltiazem HCl 300 mg 300 mg PO DAILY 07/14/21 07/14/21 History capsule,extended release 24 hr fluoxetine 40 mg capsule 40 mg PO DAILY 07/14/21 07/14/21 History gabapentin 300 mg capsule 300 mg PO DAILY 07/14/21 07/14/21 History metformin 500 mg tablet 1,000 mg PO BID 07/14/21 07/14/21 History mupirocin 2 % topical ointment 1 applic TOPICAL DIRECTED 07/14/21 07/14/21 History trazodone 50 mg tablet 50 mg PO HS PRN 07/14/21 07/14/21 History Patient History Medical History Anxiety Asthma DMII (diabetes mellitus, type 2) HLD (hyperlipidemia) HTN (hypertension) 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 Surgical History H/O: hysterectomy History of cholecystectomy Social History Smoking Status: Never smoker Tobacco Type: Cigarettes Second Hand Exposure: No; Do You Dip or Chew Tobacco: No; Hx Alcohol Use: Yes Alcohol type: wine Hx Substance Use: No Preferred Language: Yi Communication Ability: Effective Beliefs That Will Affect Care: None Current Living Situation: Spouse Other Information That Helps Us Care for You: No Feels Safe at Home: Yes Safety Concerns: Feels Safe At This Time Assistive Devices: None Assistive Devices Comment: glasses not with patient Review of Systems Constitutional: + chills; no fever Respiratory: + dyspnea Cardiovascular: no chest pain Gastrointestinal: + abdominal pain, + bloating, + nausea, + vomiting and + constipation Physical Exam Physical Exam: awake/alert Respiratory: normal respiratory effort Gastrointestinal (Abdomen): Inspection/Auscultation: + abdomen distended and + abdominal surgical scar (open ashu scar, midline scar, pfannesteil scar ) Percussion/Palpation: + abdomen tender (discomfort across mid/upper abdomen) and abdomen soft Results & Data ([facility]) Vital Signs (Past 12 Hours) Vital Signs Temp Pulse Resp BP Pulse Ox 07/14/21 22:54 36.5 C 80 14 121/72 95 07/14/21 20:58 80 18 144/79 H 97 Diagnostic Findings ABDOMEN AND PELVIS CT WITHOUT CONTRAST CT DOSE: 541.02 mGy.cm HISTORY: Acute generalized abdominal pain diffuse abdominal pain TECHNIQUE: Multiaxial CT images of the abdomen and pelvis were performed without contrast. A dose lowering technique was utilized adhering to the principles of ALARA. COMPARISON STUDY: Chest and rib radiographs 05/05/2021 FINDINGS: The heart is upper limits of normal in size. Mild bibasilar atelectasis/scarring. 5 mm solid nodule of the lateral basal segment left lower lobe, image 47. No pneumatosis or pneumoperitoneum. The unenhanced spleen, pancreas and adrenal glands are unremarkable. Cholecystectomy. Intrahepatic and extrahepatic pneumobilia is suggestive of prior sphincterotomy. The liver is otherwise unremarkable. Parenchymal scarring with linear 8 mm cortical calcification of the superior pole left kidney. No ureteral calculi or hydronephrosis. Partially decompressed or bladder with mild wall thickening. The uterus appears surgically absent. Suboptimal evaluation of the pelvic structures secondary to streak artifact from bilateral hip total joint arthroplasties. Atherosclerosis of the aorta without aneurysm. No adenopathy. Small hiatal hernia. Fluid distended distal esophagus. Numerous mildly dilated air and fluid-filled loops of small bowel measure up to 3.0 cm. Air-fluid levels are noted along with several stool-filled loops of small bowel. There is a transition point noted within the abdominal right lower quadrant on image 228 with decompressed loops of small bowel noted distally. Severe colonic diverticulosis without acute diverticulitis. Normal appendix. Unremarkable soft tissues. Degenerative changes of the spine. IMPRESSION: 1. Small bowel obstruction with transition point present within the abdominal right lower quadrant, likely on the basis of adhesions. 2. Small hiatal hernia. 3. Normal appendix. 4. Colonic diverticulosis. 5. Additional findings as above. ACT 112: Negative or not required by law. The above report was generated using voice recognition software. It may contain grammatical, syntax or spelling errors. Electronically signed by: Prakash Dia M.D. 07/14/2021 7:20 PM PG Care Time/CCT Total # of Minutes Spent Total Time Spent with Patient: Total time spent is greater than 50% in coordination of care (as documented) at patient's floor/unit and/or counseling patient: Coding Level of Care Code 86905 Initial Inpt Care Lvl 1 Diagnoses SBO (small bowel obstruction) K56.609
[2021-07-15] MEDS: LACTATED RINGER'S 1,000 ML IV SCH ×2 (07:39→15:12)
--- NOTE | 2021-07-15 07:48 | XRay Report ---
KUB HISTORY: Small bowel obstruction. Follow-up. COMPARISON: Abdomen and pelvis CT 07/14/2021. FINDINGS: Nasogastric tube terminates in the proximal stomach. Prior cholecystectomy. There are few n ondilated gas-filled loops of large and small bowel seen throughout the abdomen. No evidence for ann l obstruction at this time. There are bilateral total hip arthroplasties. No renal calculi. No urete ral calculi. No pneumoperitoneum or pneumatosis. IMPRESSION: 1. Interval decompression of the small bowel loops compared to the prior study. This favors a resolvi ng small bowel obstruction. 2. Nasogastric tube terminates in the proximal stomach. ACT 112: Negative or not required by law. Electronically signed by: Jose Reeves M.D. 07/15/2021 7:46 AM
--- NOTE | 2021-07-15 07:52 | XRay Report ---
XR chest 1V portable CLINICAL HISTORY: ng tube placement TECHNIQUE: Single frontal radiograph of the chest was obtained. Comparison: Comparison is made to chest one view 07/14/2021 FINDINGS: Multiple images were taken. In the final image, enteric tube distal tip and side-port are within the stomach. The cardiomediastinal silhouette is normal. The lungs are clear. No evidence of pleural effu guerrero or pneumothorax. IMPRESSION: Satisfactory appearance of enteric tube. ACT 112: Negative or not required by law. Electronically signed by: Keven Simmons M.D. 07/15/2021 7:51 AM
[2021-07-15] MEDS: HEPARIN SOD 5,000 UNIT/0.5 ML VIAL SQ SCH ×2 (10:05→19:45)
[2021-07-15] MEDS: MUPIROCIN 2% OINT 22 GM TUBE EXT SCH ×2 (10:05→19:45)
[2021-07-15] MEDS: MAGNESIUM SULFATE / D5W 1 GM/100 ML BAG IV SCH ×2 (11:36→13:45)
--- NOTE | 2021-07-15 12:47 | Hospitalist Progress Note ---
Date of Service July 15, 2021 Assessment & Plan (1) SBO (small bowel obstruction): Plan: Acute pain with bloating- SBO likely d/t intraabdominal adhesions with transiti on point no perforation appreciated on CT scan - GS consulted and following, appreciate assistance - NGT initially placed- not in correct position- Repositioned with Xray confirmation, adequately draining gastric contents - Consider contrast with small bowel follow through within 24-48 hours further evaluation - Maintain NPO status - Continue LR 100 ml/hr - Zosyn started empirically d/t leukocytosis with elevated lactate. 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 [place] - She was placed on Diltiazem at that time with no recurrence - was never on anticoagulation for this - NSR on monitor (4) DMII (diabetes mellitus, type 2): Plan: Hold Metformin - BG q6 hours - add coverage if >180 (5) HLD (hyperlipidemia): Plan: Continue Atorvastatin 40 daily (6) Asthma: Plan: Continue albuterol prn (7) Anxiety: Plan: Continue Fluoxetine (8) HTN (hypertension): Plan: Family practice note from Jul 02, 2021 - Patient on HCTZ and Losartan which are currently held d/t NPO status - Can add IV PRN medications if needed - currently controlled (9) Keratosis: Plan: Continue with mupirocin 2% cream to chest Plan: Continue interventions as outlined above Appreciate input from general surgery Follow up labs and KUB in AM Heparin for DVT ppx Admission and Anticipated Discharge Date Admission Date: July 14, 2021 Subjective Patient was seen on daily rounds this morning. She is resting comfortably in bed, reports overall improvement from yesterday since placement of NG tube. Little output since 7 AM in canister noted. Continues to report some diffuse abdominal pain, denies nausea or vomiting. No fever or chills. Denies flatus or bowel movement. Review of Systems Review of Systems: REVIEW OF SYSTEMS: Constitutional: No fever, sweats or chills Eyes: No diplopia, no worsening or blurred vision ENT: normal hearing, no trouble swallowing Respiratory: No cough, sputum, dyspnea at rest or on exertion Cardiovascular: No chest pain, tightness or palpitations Abdomen: (+) bloating, pain Musculoskeletal: No joint pain, calf pain, swelling Neurologic: No weakness, numbness/tingling, or balance problems Psychiatric: (+) anxiety Skin: (+) rash lesions currently under derm treatment Physical Exam Physical Exam: GENERAL: Well-developed, well-nourished. NAD. LUNGS: Clear to auscultation bilaterally. No accessory muscle use. No W/R/R. CARDIOVASCULAR: Regular rate and rhythm. No M/G/R. No JVD. ABDOMEN: Soft, diffusely tender to palpation, not significantly distended. BS present x 4 quad. EXTREMITIES: No edema. Non-tender. Peripheral pulses +2/4. NEUROLOGIC: A&O x3. PSYCHIATRIC: Cooperative. Appropriate mood and affect. SKIN: Warm, dry, intact. Erythematous lesions noted over anterior chest. Results & Data Results & Data ([facility]) Vital Signs (Past 12 Hours) Vital Signs Temp Pulse Resp BP Pulse Ox 07/15/21 07:24 37.2 C 78 16 123/71 90 Laboratory Results 07/15/21 05:16 07/15/21 05:16 Diagnostic Findings Chest X-Ray 07/14/21 21:51 XR chest 1V portable CLINICAL HISTORY: ng tube placement TECHNIQUE: Single frontal radiograph of the chest was obtained. Comparison: Comparison is made to chest one view 07/14/2021 FINDINGS: Multiple images were taken. In the final image, enteric tube distal tip and side-port are within the stomach. The cardiomediastinal silhouette is normal. The lungs are clear. No evidence of pleural effusion or pneumothorax. IMPRESSION: Satisfactory appearance of enteric tube. ACT 112: Negative or not required by law. Electronically signed by: Keven Simmons M.D. 07/15/2021 7:51 AM KUB X-Ray 07/15/21 04:00 KUB HISTORY: Small bowel obstruction. Follow-up. COMPARISON: Abdomen and pelvis CT 07/14/2021. FINDINGS: Nasogastric tube terminates in the proximal stomach. Prior cholecystectomy. There are few nondilated gas-filled loops of large and small bowel seen throughout the abdomen. No evidence for bowel obstruction at this time. There are bilateral total hip arthroplasties. No renal calculi. No ureteral calculi. No pneumoperitoneum or pneumatosis. IMPRESSION: 1. Interval decompression of the small bowel loops compared to the prior study. This favors a resolving small bowel obstruction. 2. Nasogastric tube terminates in the proximal stomach. ACT 112: Negative or not required by law. Electronically signed by: Jose Reeves M.D. 07/15/2021 7:46 AM PG Care Time/CCT Total # of Minutes Spent Total Time Spent with Patient: Total time spent is greater than 50% in coordination of care (as documented) at patient's floor/unit and/or counseling patient: Coding Level of Care Code 36558 Subseq Hosp Care Lvl 2 Diagnoses SBO (small bowel obstruction) K56.609 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 R00.2 DMII (diabetes mellitus, type 2) E11.9 HLD (hyperlipidemia) E78.5 Asthma J45.909 Anxiety F41.9 HTN (hypertension) I10 Keratosis L57.0 Hypomagnesemia E83.42
--- NOTE | 2021-07-15 15:43 | Electrocardiogram Report ---
Test Reason : Blood Pressure : / mmHG Vent. Rate : 067 BPM Atrial Rate : 067 BPM P-R Int : 126 ms QRS Dur : 074 ms QT Int : 440 ms P-R-T Axes : 045 006 013 degrees QTc Int : 464 ms Normal sinus rhythm Normal ECG When compared with ECG of 03-SEP-1996 22:21, T wave amplitude has decreased in Anterior leads Confirmed by Forrest Haider ([id number]) on 07/15/2021 3:43:21 PM Referred By: REFERRED SELF Confirmed By:Forrest Haider
[2021-07-15] MEDS ORDERED: CHLORASEPTIC 1.4% SOLN 180 ML BTL MT PRN (18:19)
[2021-07-16] MEDS: LACTATED RINGER'S 1,000 ML IV SCH ×3 (01:10→20:49)
[2021-07-16 06:18] LABS: Basophils # (auto) 0.01 K/uL (0-0.2); Basophils % (auto) 0.2 %; Eosinophils # (auto) 0.14 K/uL (0-0.5); Eosinophils % (auto) 2.3 %; Hematocrit (blood only) 33.6 % (37-47); Hemoglobin 11.3 g/dL (12.0-16.0); Immature Granulocytes # (auto) 0.01 K/uL (0.00-0.02); Immature Granulocytes % (auto) 0.2 %; Lymphocytes # (auto) 1.57 K/uL (1.2-3.4); Lymphocytes % (auto) 25.6 %; Mean Corpuscular Hemoglobin 30.6 pg (25-34); Mean Corpuscular Hgb Conc 33.6 g/dL (32-36); Mean Corpuscular Volume 91.1 fL (80-100); Mean Platelet Volume 10.2 fL (7.4-10.4); Monocytes # (auto) 1.07 K/uL (0.11-0.59); Monocytes % (auto) 17.4 %; Neutrophils # (auto) 3.34 K/uL (1.4-6.5); Neutrophils % (auto) 54.3 %; Platelet Count 268 K/uL (130-400); RDW Coefficient of Variation 13.2 % (11.5-14.5); RDW Standard Deviation 43.9 fL (36.4-46.3); Red Blood Count 3.69 M/uL (4.2-5.4); White Blood Count 6.14 K/uL (4.8-10.8)
[2021-07-16 06:31] LABS: BUN Creatinine Ratio 17.1 (10-20); Calcium 8.8 mg/dl (8.5-10.1); Creatinine Clr Calc Pharmacy 65.3 ml/min; Est GFR (African American) 90.2 ml/min; Est GFR (Non-African American) 77.8 ml/min; Magnesium 1.7 mg/dl (1.7-2.4); Potassium 3.3 mmol/L (3.5-5.1)
[2021-07-16] MEDS: HYDROmorphone INJ 0.5 MG/0.5 ML SYR IV PRN ×3 (06:36→20:47)
--- NOTE | 2021-07-16 08:33 | XRay Report ---
XR KUB/Abdomen 1 view CLINICAL HISTORY: Evaluate possible small bowel obstruction. COMPARISON STUDY: 07/15/2021 TECHNIQUE: Single view of the abdomen. FINDINGS: The bowel gas pattern is within normal limits without evidence for dilatation or obstruction. NG tube is again seen within the proximal stomach. There is no evidence for organomegaly or gross intra-abdo hardy mass. No abnormal calcifications are seen along the course of the urinary tracts bilaterally. N o acute osseous pathology. IMPRESSION: 1. Compared to the previous examination, the bowel gas pattern is within normal limits without eviden ce for small bowel obstruction. 2. NG tube is again seen. ACT 112: Negative or not required by law. Electronically signed by: Blake Aguilera M.D. 07/16/2021 8:31 AM
--- NOTE | 2021-07-16 08:37 | Surgery Progress Note ---
Date of Service July 16, 2021 Assessment & Plan (1) Small bowel obstruction: Plan: Patient feeling about the same as yesterday, which is much improved since admission Denies n/v. Still having some belly discomfort. Starting to pass some flatus. No BM yet NGT with 450cc output overnight Will check KUB today Continue NGT for now...will follow up on KUB results. May consider SBFT Admission and Anticipated Discharge Date Admission Date: July 14, 2021 Supervising Physician Co-Signing Physician Notes Patient seen and examined, labs and imaging reviewed, agree with above. Was passing flatus this morning and KUB continue to improve, NG tube clamped, patient started to have increasing distention and pain. NG tube to low intermittent wall suction. Currently pending small bowel follow-through. On exam she is afebrile stable vitals. Her abdomen is soft, moderately distended, nontender. Will await results of small bowel follow-through, if needed continued evidence of ongoing obstruction may need surgical intervention in the next day or 2. Surgery will follow. Subjective Patient seen, feeling about the same as yesterday. No nausea/vomiting. Still having pain rating 4-5/10. She has started to pass a small amount of flatus. Physical Exam Physical Exam: awake/alert Gastrointestinal (Abdomen): Inspection/Auscultation: + abdominal surgical scar Percussion/Palpation: + abdomen tender (generalized discomfort to palpation ) and abdomen soft NGT with 450cc bilious output overnight Results & Data ([facility]) Vital Signs (Past 12 Hours) Vital Signs Temp Pulse Resp BP Pulse Ox 07/16/21 07:53 36.5 C 77 16 147/77 H 92 07/15/21 22:10 97 07/15/21 22:06 36.9 C 85 16 164/77 H 85 L PG Care Time/CCT Total # of Minutes Spent Total Time Spent with Patient: Total time spent is greater than 50% in coordination of care (as documented) at patient's floor/unit and/or counseling patient: Coding Level of Care Code 78608 Subseq Hosp Care Lvl 1 Diagnoses Small bowel obstruction K56.609
[2021-07-16] MEDS: HEPARIN SOD 5,000 UNIT/0.5 ML VIAL SQ SCH ×2 (09:06→20:39)
[2021-07-16] MEDS: MUPIROCIN 2% OINT 22 GM TUBE EXT SCH ×2 (09:08→20:38)
[2021-07-16] MEDS: POTASSIUM CHLORIDE / WTR 10 MEQ/100 ML PLCT IV SCH ×2 (10:16→12:03)
--- NOTE | 2021-07-16 10:46 | Hospitalist Progress Note ---
Date of Service July 16, 2021 Assessment & Plan (1) SBO (small bowel obstruction): Plan: Acute pain with bloating- SBO likely d/t intraabdominal adhesions with transiti on point no perforation appreciated on CT scan - GS consulted and following, appreciate assistance - NGT remains in place--adequately draining gastric contents - Obtain SBFT today - Maintain NPO status for now, but anticipate can clamp NGT and likely do ice chips/sips later today - Continue LR 100 ml/hr, will cap if able to introduce diet - Zosyn started empirically d/t leukocytosis with elevated lactate. 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 [place] - She was placed on Diltiazem at that time with no recurrence - was never on anticoagulation for this - NSR on monitor (6) DMII (diabetes mellitus, type 2): Plan: Hold Metformin - BG q6 hours - add coverage if >180 (7) HLD (hyperlipidemia): Plan: Continue Atorvastatin 40 daily (8) Asthma: Plan: Continue albuterol prn (9) Anxiety: Plan: Continue Fluoxetine (10) HTN (hypertension): Plan: Family practice note from Jul 02, 2021 - Patient on HCTZ and Losartan which are currently held d/t NPO status - Can add IV PRN medications if needed (11) Keratosis: Plan: Continue with mupirocin 2% cream to chest Plan: Continue interventions as outlined above Appreciate input from general surgery Heparin for DVT ppx Ideally would like to clamp NGT and encourage pt to get up and walk halls Admission and Anticipated Discharge Date Admission Date: July 14, 2021 Subjective Patient seen on daily rounds this morning. She reports ongoing mild abdominal pain diffusely. Denies nausea or vomiting. NG tube remains in place and output from 7P to now ~350 cc. Patient is now passing flatus, no BM. Review of Systems Review of Systems: REVIEW OF SYSTEMS: Constitutional: No fever, sweats or chills Eyes: No diplopia, no worsening or blurred vision ENT: normal hearing, no trouble swallowing Respiratory: No cough, sputum, dyspnea at rest or on exertion Cardiovascular: No chest pain, tightness or palpitations Abdomen: (+) bloating, pain Musculoskeletal: No joint pain, calf pain, swelling Neurologic: No weakness, numbness/tingling, or balance problems Psychiatric: (+) anxiety Skin: (+) rash lesions currently under derm treatment Physical Exam Physical Exam: GENERAL: Well-developed, well-nourished. NAD. LUNGS: Clear to auscultation bilaterally. No accessory muscle use. No W/R/R. CARDIOVASCULAR: Regular rate and rhythm. No M/G/R. No JVD. ABDOMEN: Soft, diffusely tender to palpation, non distended. BS present x 4 quad. EXTREMITIES: No edema. Non-tender. Peripheral pulses +2/4. NEUROLOGIC: A&O x3. PSYCHIATRIC: Cooperative. Appropriate mood and affect. SKIN: Warm, dry, intact. Erythematous lesions noted over anterior chest. Results & Data Results & Data ([facility]) Vital Signs (Past 12 Hours) Vital Signs Temp Pulse Resp BP Pulse Ox 07/16/21 07:53 36.5 C 77 16 147/77 H 92 Laboratory Results 07/16/21 05:46 07/16/21 05:46 PG Care Time/CCT Total # of Minutes Spent Total Time Spent with Patient: Total time spent is greater than 50% in coordination of care (as documented) at patient's floor/unit and/or counseling patient: Coding Level of Care Code 11998 Subseq Hosp Care Lvl 2 Diagnoses SBO (small bowel obstruction) K56.609 Hypomagnesemia E83.42 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 R00.2 DMII (diabetes mellitus, type 2) E11.9 HLD (hyperlipidemia) E78.5 Asthma J45.909 Anxiety F41.9 HTN (hypertension) I10 Keratosis L57.0 SIRS (systemic inflammatory response syndrome) R65.10 Hypokalemia E87.6
--- NOTE | 2021-07-16 15:28 | Fluoroscopy Report ---
FL small bowel follow through CLINICAL HISTORY: 75 years-old Female with contrast via NGT; eval for sbo. Acute abdominal pain with possible small bowel obstruction TECHNIQUE: Oral barium was administered to the patient and serial radiographs of the abdomen were pe rformed. COMPARISON STUDY: KUB of same day, CT abdomen and pelvis 07/14/2021 FLUOROSCOPY TIME: 0.7 minutes. FINDINGS: Research And Evaluation Manager radiograph of the abdomen demonstrates a few prominent air-filled loops of small bow el within the central abdomen. Cholecystectomy clips. Distal tip of enteric tube projects over the ga stric body. No pneumoperitoneum. Bilateral hip total joint arthroplasties. Upon the administration of oral barium contrast through the enteric tube, there is prompt opacificati on of the gastric lumen and proximal small bowel. Transit to the large bowel occurred at approximate ly 20 minutes. Several loops of small bowel measured within the upper limits of normal at 3 cm. Small duodenal diverticulum. Subsequently, spot fluoroscopic images of the abdomen were obtained and demon strate freely movable bowel in all four abdominal quadrants. The terminal ileum appears unremarkable. IMPRESSION: 1. Resolution of the small bowel obstruction with mild persistent small bowel dilatation. 2. Cholecystectomy. ACT 112: Negative or not required by law. The above report was generated using voice recognition software. It may contain grammatical, syntax o r spelling errors. Electronically signed by: Prakash Dia M.D. 07/16/2021 3:27 PM
[2021-07-17] MEDS ORDERED: MELATONIN 3 MG TAB PO PRN (00:12)
[2021-07-17] MEDS: LACTATED RINGER'S 1,000 ML IV SCH (06:09)
--- NOTE | 2021-07-17 08:23 | Surgery Progress Note ---
Date of Service July 17, 2021 Assessment & Plan (1) Small bowel obstruction: Plan: resolving start on clears, advance as surinder over next 24 hours Admission and Anticipated Discharge Date Admission Date: July 14, 2021 Supervising Physician Co-Signing Physician Notes Patient seen and examined, labs and image reviewed, agree with above. Small bowel follow-through yesterday showed contrast into the colon and she has had multiple bowel movement since. NG tube removed last night. She tolerated clears. Feels much better than on arrival. We will advance to low fiber diet slowly. Hopefully home tomorrow. Subjective bowels moving + flatus, no nausea, little discomfort Physical Exam Gastrointestinal (Abdomen): Inspection/Auscultation: abdomen not distended Percussion/Palpation: abdomen soft; abdomen nontender Results & Data ([facility]) Vital Signs (Past 12 Hours) Vital Signs Temp Pulse Resp BP Pulse Ox 07/17/21 07:40 36.7 C 77 16 177/78 H 93 07/16/21 21:52 36.9 C 86 16 157/91 H 92 PG Care Time/CCT Total # of Minutes Spent Total Time Spent with Patient: Total time spent is greater than 50% in coordination of care (as documented) at patient's floor/unit and/or counseling patient: Coding Level of Care Code 73029 Subseq Hosp Care Lvl 1 Diagnoses Small bowel obstruction K56.609
[2021-07-17 08:24] LABS: Basophils # (auto) 0.01 K/uL (0-0.2); Basophils % (auto) 0.1 %; Eosinophils # (auto) 0.18 K/uL (0-0.5); Eosinophils % (auto) 2.4 %; Hematocrit (blood only) 35.3 % (37-47); Hemoglobin 11.7 g/dL (12.0-16.0); Immature Granulocytes # (auto) 0.01 K/uL (0.00-0.02); Immature Granulocytes % (auto) 0.1 %; Lymphocytes # (auto) 1.32 K/uL (1.2-3.4); Lymphocytes % (auto) 17.5 %; Mean Corpuscular Hemoglobin 30.1 pg (25-34); Mean Corpuscular Hgb Conc 33.1 g/dL (32-36); Mean Corpuscular Volume 90.7 fL (80-100); Mean Platelet Volume 10.7 fL (7.4-10.4); Monocytes # (auto) 0.81 K/uL (0.11-0.59); Monocytes % (auto) 10.7 %; Neutrophils # (auto) 5.21 K/uL (1.4-6.5); Neutrophils % (auto) 69.2 %; Platelet Count 262 K/uL (130-400); RDW Coefficient of Variation 12.9 % (11.5-14.5); RDW Standard Deviation 42.7 fL (36.4-46.3); Red Blood Count 3.89 M/uL (4.2-5.4); White Blood Count 7.54 K/uL (4.8-10.8)
[2021-07-17 08:55] LABS: BUN Creatinine Ratio 17.6 (10-20); Calcium 8.3 mg/dl (8.5-10.1); Est GFR (African American) 100.6 ml/min; Est GFR (Non-African American) 86.8 ml/min; Magnesium 1.5 mg/dl (1.7-2.4); Potassium 3.9 mmol/L (3.5-5.1)
[2021-07-17] MEDS: HYDROmorphone INJ 0.5 MG/0.5 ML SYR IV PRN (10:12)
[2021-07-17] MEDS: HEPARIN SOD 5,000 UNIT/0.5 ML VIAL SQ SCH ×2 (10:17→20:07)
[2021-07-17] MEDS: MUPIROCIN 2% OINT 22 GM TUBE EXT SCH ×2 (10:22→20:08)
[2021-07-17] MEDS ORDERED: traZODone HCL 50 MG TAB PO PRN (12:19)
--- NOTE | 2021-07-17 12:30 | Hospitalist Progress Note ---
Date of Service July 17, 2021 Assessment & Plan (1) SBO (small bowel obstruction): Plan: Acute pain with bloating- SBO likely d/t intraabdominal adhesions with transit ion point no perforation appreciated on CT scan--RESOLVED - GS consulted and following, appreciate assistance - NGT placed on admission was removed 07/16 - Provided LR at 100 ml/hr, will d/c as she is tolerating oral intake - SBFT performed 07/16 -- noted resolution of SBO, NGT removed and diet advanced - D/c Dilaudid, continue Zofran PRN - Initiate PPI and can consider Bentyl if she continues to feel that she's having spasms (2) SIRS (systemic inflammatory response syndrome): Plan: - Noninfectious, secondary to stress response d/t #1 (RESOLVED) (3) Hypokalemia: Plan: - Replaced/resolved (4) Hypomagnesemia: Plan: - Replaced/resolved (5) 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: Plan: 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 [place] - She was placed on Diltiazem at that time with no recurrence - was never on anticoagulation for this (6) DMII (diabetes mellitus, type 2): Plan: Hold Metformin - Change accuchecks from q6h to AC and HS - add coverage if >180 (7) HLD (hyperlipidemia): Plan: Resume Atorvastatin 40 daily (8) Asthma: Plan: Continue albuterol prn (9) Anxiety: Plan: Resume Fluoxetine (10) HTN (hypertension): Plan: Family practice note from Jul 02, 2021 - it was reported that pt was on Losartan and HCTZ but I do not see this listed on her med reconciliation - Accelerated BP today -- Resume Diltiazem as on med rec (11) Keratosis: Plan: Continue with mupirocin 2% cream to chest Plan: As above, will advance diet to full liquids this evening and if tolerates, advance to low fiber tomorrow for breakfast No need for repeat labs at this time Encourage pt to get out of bed, sit in chair and take short walks Resume home medications with addition of PPI for GERD Will clarify if she takes Losartan and HCTZ and resume if she does at prescribed dose Admission and Anticipated Discharge Date Admission Date: July 14, 2021 Subjective Patient seen on daily rounds this morning. She is resting comfortably in bed. NGT removed yesterday and diet advanced. Thus far, tolerating clear liquids. She has some minimal abdominal crampy discomfort but no overt uncontrolled pain. Denies n/v. Continues to pass flatus and passed some liquid stool yesterday afternoon/evening. Review of Systems Review of Systems: REVIEW OF SYSTEMS: Constitutional: No fever, sweats or chills Eyes: No diplopia, no worsening or blurred vision ENT: normal hearing, no trouble swallowing Respiratory: No cough, sputum, dyspnea at rest or on exertion Cardiovascular: No chest pain, tightness or palpitations Abdomen: (+) crampy discomfort, no pain or n/v Musculoskeletal: No joint pain, calf pain, swelling Neurologic: No weakness, numbness/tingling, or balance problems Psychiatric: (+) anxiety Skin: (+) rash lesions currently under derm treatment Physical Exam Physical Exam: GENERAL: 75 yo well-developed, well-nourished WF. NAD. LUNGS: Clear to auscultation bilaterally. No accessory muscle use. No W/R/R. CARDIOVASCULAR: Regular rate and rhythm. No M/G/R. No JVD. ABDOMEN: Soft, non distended, minimal tenderness in epigastrium. BS present x 4 quad. EXTREMITIES: No edema. Non-tender. Peripheral pulses +2/4. NEUROLOGIC: A&O x3. PSYCHIATRIC: Cooperative. Appropriate mood and affect. SKIN: Warm, dry, intact. Erythematous lesions noted over anterior chest. Results & Data Results & Data ([facility]) Vital Signs (Past 12 Hours) Vital Signs Temp Pulse Resp BP Pulse Ox 07/17/21 07:40 36.7 C 77 16 177/78 H 93 Laboratory Results 07/17/21 07:57 07/17/21 07:57 Diagnostic Findings Small Bowel X-Ray 07/16/21 12:29 [place] small bowel follow through CLINICAL HISTORY: 75 years-old Female with contrast via NGT; eval for sbo. Acute abdominal pain with possible small bowel obstruction TECHNIQUE: Oral barium was administered to the patient and serial radiographs of the abdomen were performed. COMPARISON STUDY: KUB of same day, CT abdomen and pelvis 07/14/2021 FLUOROSCOPY TIME: 0.7 minutes. FINDINGS: Dinkey Engine Operator radiograph of the abdomen demonstrates a few prominent air- filled loops of small bowel within the central abdomen. Cholecystectomy clips. Distal tip of enteric tube projects over the gastric body. No pneumoperitoneum. Bilateral hip total joint arthroplasties. Upon the administration of oral barium contrast through the enteric tube, there is prompt opacification of the gastric lumen and proximal small bowel. Transit to the large bowel occurred at approximately 20 minutes. Several loops of small bowel measured within the upper limits of normal at 3 cm. Small duodenal diverticulum. Subsequently, spot fluoroscopic images of the abdomen were obtained and demonstrate freely movable bowel in all four abdominal quadrants. The terminal ileum appears unremarkable. IMPRESSION: 1. Resolution of the small bowel obstruction with mild persistent small bowel dilatation. 2. Cholecystectomy. ACT 112: Negative or not required by law. The above report was generated using voice recognition software. It may contain grammatical, syntax or spelling errors. Electronically signed by: Prakash Dia M.D. 07/16/2021 3:27 PM PG Care Time/CCT Total # of Minutes Spent Total Time Spent with Patient: Total time spent is greater than 50% in coordination of care (as documented) at patient's floor/unit and/or counseling patient: Coding Level of Care Code 91238 Subseq Hosp Care Lvl 3 Diagnoses SBO (small bowel obstruction) K56.609 SIRS (systemic inflammatory response syndrome) R65.10 Hypokalemia E87.6 Hypomagnesemia E83.42 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 R00.2 DMII (diabetes mellitus, type 2) E11.9 HLD (hyperlipidemia) E78.5 Asthma J45.909 Anxiety F41.9 HTN (hypertension) I10 Keratosis L57.0
[2021-07-17] MEDS: FLUoxetine HCL 20 MG CAP PO SCH (13:54)
[2021-07-17] MEDS: LOSARTAN POTASSIUM 25 MG TAB PO SCH (13:55)
[2021-07-17] MEDS: dilTIAZem HCL 300 MG CAPCR PO SCH (13:55)
[2021-07-17] MEDS: ACETAMINOPHEN 500 MG TAB PO PRN (18:26)
[2021-07-17] MEDS ORDERED: DICYCLOMINE HCL 10 MG CAP PO ONE (20:10)
[2021-07-17] MEDS: ONDANSETRON INJ 2 MG/ML 2 ML VIAL IV PRN (22:36)
[2021-07-18] MEDS: FLUoxetine HCL 20 MG CAP PO SCH (08:00)
[2021-07-18] MEDS: dilTIAZem HCL 300 MG CAPCR PO SCH (08:00)
[2021-07-18] MEDS: LOSARTAN POTASSIUM 25 MG TAB PO SCH (08:01)
[2021-07-18] MEDS: HEPARIN SOD 5,000 UNIT/0.5 ML VIAL SQ SCH (08:02)
[2021-07-18] MEDS: MUPIROCIN 2% OINT 22 GM TUBE EXT SCH (08:08)
[2021-07-18] MEDS ORDERED: ATORVASTATIN 40 MG TAB PO SCH (09:00)
[2021-07-18] MEDS ORDERED: PANTOprazole 40 MG TAB PO SCH (09:00)
[2021-07-18] MEDS ORDERED: GABAPENTIN 300 MG CAP PO SCH (09:00)
--- NOTE | 2021-07-18 10:22 | Surgery Progress Note ---
Date of Service July 18, 2021 Assessment & Plan (1) Small bowel obstruction: Plan: resolving planning for low fiber lunch and possible d/c this afternoon will sign off Admission and Anticipated Discharge Date Admission Date: July 14, 2021 Supervising Physician Co-Signing Physician Notes Patient seen and examined, agree with above. Tolerated full liquids, continue to pass gas. Mild abdominal discomfort last night but this is improved. We will advance to low fiber diet, may be discharged to home if tolerates. Surgery will sign off. Dr. Zavala covering over the weekend if any questions. Subjective some cramping last evening, better this AM, had full liquid breakfast Physical Exam Gastrointestinal (Abdomen): Inspection/Auscultation: abdomen normal to inspection; abdomen not distended Percussion/Palpation: abdomen soft; abdomen nontender Results & Data ([facility]) Vital Signs (Past 12 Hours) Vital Signs Temp Pulse Resp BP Pulse Ox 07/18/21 07:05 36.6 C 87 16 177/90 H 96 07/17/21 22:28 36.7 C 71 18 161/87 H 92 PG Care Time/CCT Total # of Minutes Spent Total Time Spent with Patient: Total time spent is greater than 50% in coordination of care (as documented) at patient's floor/unit and/or counseling patient: Coding Level of Care Code 87223 Subseq Hosp Care Lvl 1 Diagnoses Small bowel obstruction K56.609
--- NOTE | 2021-07-18 10:33 | Discharge Summary ---
Date of Service July 18, 2021 Admission HPI Per Admitting Provider 75 YOF with past medical history of: 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 (? PAF), HLD, asthma, DM II, DM neuropathy, anxiety, difficulty sleeping, hemochromatosis. Patient comes to the EMD today for abrupt onset of abdominal pain and bloating that occurred at 1600 today. This was followed by sharp pain on both sides of her abdomen and feeling the urge to defecate. She was unable to defecate and then had multiple bouts of yellow green emesis. In the EMD the patient had routine labs drawn, and CT of her abdomen and pelvis without contrast. She was noted to have SBO with transition point and hiatal hernia, diverticulosis without diverticulitis. She has had some with relief of nausea and decrease in abdominal bloating feeling per her report. NGT placed. Her labs were remarkable for leukocytosis of 26 predominant neutrophils, lactate 3.1. She was given 2 liters of 0.9% saline and started on Zosyn. General Surgery was consulted by the EMD. Patient has past abdominal surgical history of cholecystectomy and hysterectomy. She thinks she may have had this occur before, but is drowsy from the pain medications. Patient will be admitted for continuation of NGT to LIWS, IV fluids with LR, bowel rest with NPO and continuation of Zosyn while following her WBC and lactate, which is most likely at this time acute stress reaction but will follow clinically. Patient COVID test on admission is: NEGATIVE Principal Diagnosis Small bowel obstruction--resolved Hypokalemia--resolved Hypomagnesemia--resolved Discharge Exam GENERAL: 75 yo well-developed, well-nourished WF. NAD. LUNGS: Clear to auscultation bilaterally. No accessory muscle use. No W/R/R. CARDIOVASCULAR: Regular rate and rhythm. No M/G/R. No JVD. ABDOMEN: Soft, non distended, nontender. BS present x 4 quad. EXTREMITIES: No edema. Non-tender. Peripheral pulses +2/4. NEUROLOGIC: A&O x3. PSYCHIATRIC: Cooperative. Appropriate mood and affect. SKIN: Warm, dry, intact. Erythematous dry scaly skin noted over anterior chest. Discharge Data Allergies Allergy/AdvReac Type Severity Reaction Status Date / Time Iodinated Contrast Media Allergy Severe Anaphylaxis Verified 07/14/21 18:51 butorphanol [From Stadol] AdvReac Severe HALLUCINATI Verified 07/14/21 18:51 ONS codeine AdvReac Intermediate Gastrointestinal Verified 07/14/21 18:51 Upset Consultations 07/14/21 20:40 ED Decision to Admit Stat 07/14/21 22:53 Consult General Surgery Routine Ordered Studies Abdomen/Pelvis CT 07/14/21 18:[address] WITHOUT CONTRAST CT DOSE: 541.02 mGy.cm HISTORY: Acute generalized abdominal pain diffuse abdominal pain TECHNIQUE: Multiaxial CT images of the abdomen and pelvis were performed without contrast. A dose lowering technique was utilized adhering to the principles of ALARA. COMPARISON STUDY: Chest and rib radiographs 05/05/2021 FINDINGS: The heart is upper limits of normal in size. Mild bibasilar atelectasis/scarring. 5 mm solid nodule of the lateral basal segment left lower lobe, image 47. No pneumatosis or pneumoperitoneum. The unenhanced spleen, pancreas and adrenal glands are unremarkable. Cholecystectomy. Intrahepatic and extrahepatic pneumobilia is suggestive of prior sphincterotomy. The liver is otherwise unremarkable. Parenchymal scarring with linear 8 mm cortical calcification of the superior pole left kidney. No ureteral calculi or hydronephrosis. Partially decompressed or bladder with mild wall thickening. The uterus appears surgically absent. Suboptimal evaluation of the pelvic structures secondary to streak artifact from bilateral hip total joint arthroplasties. Atherosclerosis of the aorta without aneurysm. No adenopathy. Small hiatal hernia. Fluid distended distal esophagus. Numerous mildly dilated air and fluid-filled loops of small bowel measure up to 3.0 cm. Air-fluid levels are noted along with several stool-filled loops of small bowel. There is a transition point noted within the abdominal right lower quadrant on image 228 with decompressed loops of small bowel noted distally. Severe colonic diverticulosis without acute diverticulitis. Normal appendix. Unremarkable soft tissues. Degenerative changes of the spine. IMPRESSION: 1. Small bowel obstruction with transition point present within the abdominal right lower quadrant, likely on the basis of adhesions. 2. Small hiatal hernia. 3. Normal appendix. 4. Colonic diverticulosis. 5. Additional findings as above. ACT 112: Negative or not required by law. The above report was generated using voice recognition software. It may contain grammatical, syntax or spelling errors. Electronically signed by: Prakash Dia M.D. 07/14/2021 7:20 PM Chest X-Ray 07/14/21 20:41 XR chest 1V portable HISTORY: 75 years-old Female ng tube placement status post placement of an enteric tube. Small bowel obstruction. COMPARISON: CT abdomen and pelvis of same day, chest radiograph 05/05/2021 TECHNIQUE: AP view of the chest FINDINGS: Enteric tube overlies the midline of the upper chest, approximately 2.8 cm superior to the james. The cardiac silhouette is enlarged. Cholecystectomy. Air-filled loops of bowel are noted within the upper abdomen. Filling apices are excluded from the [id number]. No pneumothorax, large pleural effusion or overt pulmonary edema. Mild subsegmental bibasilar atelectasis/scarring. IMPRESSION: Distal tip of the enteric tube projects over the midline of the upper chest a few centimeters superior to the james. Repositioning with follow- up imaging recommended. ACT 112: Negative or not required by law. The above report was generated using voice recognition software. It may contain grammatical, syntax or spelling errors. Electronically signed by: Prakash Dia M.D. 07/14/2021 9:00 PM Chest X-Ray 07/14/21 21:51 XR chest 1V portable CLINICAL HISTORY: ng tube placement TECHNIQUE: Single frontal radiograph of the chest was obtained. Comparison: Comparison is made to chest one view 07/14/2021 FINDINGS: Multiple images were taken. In the final image, enteric tube distal tip and side-port are within the stomach. The cardiomediastinal silhouette is normal. The lungs are clear. No evidence of pleural effusion or pneumothorax. IMPRESSION: Satisfactory appearance of enteric tube. ACT 112: Negative or not required by law. Electronically signed by: Keven Simmons M.D. 07/15/2021 7:51 AM KUB X-Ray 07/15/21 04:00 KUB HISTORY: Small bowel obstruction. Follow-up. COMPARISON: Abdomen and pelvis CT 07/14/2021. FINDINGS: Nasogastric tube terminates in the proximal stomach. Prior cholecystectomy. There are few nondilated gas-filled loops of large and small bowel seen throughout the abdomen. No evidence for bowel obstruction at this time. There are bilateral total hip arthroplasties. No renal calculi. No ureteral calculi. No pneumoperitoneum or pneumatosis. IMPRESSION: 1. Interval decompression of the small bowel loops compared to the prior study. This favors a resolving small bowel obstruction. 2. Nasogastric tube terminates in the proximal stomach. ACT 112: Negative or not required by law. Electronically signed by: Jose Reeves M.D. 07/15/2021 7:46 AM KUB X-Ray 07/16/21 04:00 XR KUB/Abdomen 1 view CLINICAL HISTORY: Evaluate possible small bowel obstruction. COMPARISON STUDY: 07/15/2021 TECHNIQUE: Single view of the abdomen. FINDINGS: The bowel gas pattern is within normal limits without evidence for dilatation or obstruction. NG tube is again seen within the proximal stomach. There is no evidence for organomegaly or gross intra-abdominal mass. No abnormal calcifications are seen along the course of the urinary tracts bilaterally. No acute osseous pathology. IMPRESSION: 1. Compared to the previous examination, the bowel gas pattern is within normal limits without evidence for small bowel obstruction. 2. NG tube is again seen. ACT 112: Negative or not required by law. Electronically signed by: Blake Aguilera M.D. 07/16/2021 8:31 AM Small Bowel X-Ray 07/16/21 12:29 FL small bowel follow through CLINICAL HISTORY: 75 years-old Female with contrast via NGT; eval for sbo. A cute abdominal pain with possible small bowel obstruction TECHNIQUE: Oral barium was administered to the patient and serial radiographs of the abdomen were performed. COMPARISON STUDY: KUB of same day, CT abdomen and pelvis 07/14/2021 FLUOROSCOPY TIME: 0.7 minutes. FINDINGS: [employer] radiograph of the abdomen demonstrates a few prominent air- filled loops of small bowel within the central abdomen. Cholecystectomy clips. Distal tip of enteric tube projects over the gastric body. No pneumoperitoneum. Bilateral hip total joint arthroplasties. Upon the administration of oral barium contrast through the enteric tube, there is prompt opacification of the gastric lumen and proximal small bowel. Transit to the large bowel occurred at approximately 20 minutes. Several loops of small bowel measured within the upper limits of normal at 3 cm. Small duodenal diverticulum. Subsequently, spot fluoroscopic images of the abdomen were obtained and demonstrate freely movable bowel in all four abdominal quadrants. The terminal ileum appears unremarkable. IMPRESSION: 1. Resolution of the small bowel obstruction with mild persistent small bowel dilatation. 2. Cholecystectomy. ACT 112: Negative or not required by law. The above report was generated using voice recognition software. It may contain grammatical, syntax or spelling errors. Electronically signed by: Prakash Dia M.D. 07/16/2021 3:27 PM Hospital Course (1) SBO (small bowel obstruction): Acute pain with bloating- SBO likely d/t intraabdominal adhesions with transition point no perforation appreciated on CT scan--RESOLVED - GS consulted and following, appreciate assistance--advised conservative management - NGT placed on admission was removed 07/16 and diet advanced to clears - Pain control ordered w/ Dilaudid - Provided LR at 100 ml/hr, which were stopped once diet was advanced - SBFT performed 07/16 -- noted resolution of SBO, NGT removed and diet advanced - Dilaudid d/c'd on 07/17 AM and she was continue Zofran PRN, APAP PO was ordered for pain - Initiated PPI on 07/17 for GERD as she reports pepcid does not improve/help her sx - Diet advanced to full liquids and to low fiber on 07/18 which she tolerated (2) SIRS (systemic inflammatory response syndrome): - Noninfectious, secondary to stress response d/t #1 (RESOLVED) (3) Hypokalemia: - Replaced/resolved (4) Hypomagnesemia: - Replaced/resolved (5) 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: 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 [place] - She was placed on Diltiazem at that time with no recurrence - was never on anticoagulation for this (6) DMII (diabetes mellitus, type 2): Hold Metformin - Change accuchecks from q6h to AC and HS - add coverage if >180 (7) HLD (hyperlipidemia): Resume Atorvastatin 40 daily (8) Asthma: Continue albuterol prn (9) Anxiety: Resume Fluoxetine (10) HTN (hypertension): Family practice note from Jul 02, 2021 - Losartan and Diltiazem were ordered once pt was ordered a diet (11) Keratosis: Continue with mupirocin 2% cream to chest At this time patient is medically and hemodynamically stable for discharge. Diet has been advanced to low fiber and she is tolerating it well without any issues. Advise follow-up with primary care physician within 1 week of discharge or contact sooner if any questions. Also advised follow-up with general surgery, Dr. Bower, within 1 to 2 weeks of discharge from the hospital. Above plan of care has been discussed with Dr. Xiong who has also seen and evaluated this patient. Total Time Total Time Spent Total Time Spent (In Minutes): >30 minutes Discharge Plan Discharge Items Patient Disposition: Home - Self-Care Reason For Visit: SBO Discharge Diagnosis: Small bowel obstruction Activity: Resume your previous activity Non-emergency contact: Primary Care Provider and Surgeon Call non-emergency contact if: you have any medication questions, your symptoms worsen and your pain is not controlled Follow-up/Referrals: Venu Bower DO, JACKSON [Physician] - (1 week) Rashard Elaine MD [Primary Care Provider] - 07/22/21 2:10 pm Diet: Carb Consistent or DM2 and Low Fiber Addtl Attending Provider Instructions: You were hospitalized due to small bowel obstruction which was likely resulting from adhesions (scarring from previous abdominal surgeries). You were treated by placing a nasogastric tube to help release pressure from the area of obstruction/blockage. In addition, we held off on feeding you. This allowed for the obstruction to open back up and allow contents to move freely throughout your small bowel. At this time, it is recommended that you follow a low fiber diet over the next few days and can slowly begin reintroducing higher fiber foods. We would recommend that you follow up with your general surgeon, Dr. Bower, within one week of discharge. Take all medications as outlined on your discharge medication list. I have sent a prescription for Protonix 40mg daily for you to take (only new medication added). This should be taken every day at least 30 minutes before your first meal of the day. Advise follow up with your primary care provider within 1 week of discharge as well or call sooner with any questions. Pending Studies at Discharge: No Stand-Alone Forms: My O2 [place], Smoking Cessation Medications and DC Order Prescriptions: New losartan 25 mg Tablet 25 mg PO QAM Qty: 30 RF: 0 pantoprazole [Protonix] 40 mg tablet,delayed release (DR/EC) 40 mg PO DAILY Qty: 30 RF: 0 Continued fluoxetine 40 mg capsule 40 mg PO DAILY RF: 0 atorvastatin 40 mg tablet 40 mg PO DAILY RF: 0 metformin 500 mg tablet 1,000 mg PO BID RF: 0 trazodone 50 mg tablet 50 mg PO HS PRN (Reason: Sleep) RF: 0 diltiazem HCl 300 mg capsule,extended release 24hr 300 mg PO DAILY RF: 0 gabapentin 300 mg capsule 300 mg PO DAILY RF: 0 mupirocin 2 % ointment 1 applic TOPICAL DIRECTED RF: 0 albuterol sulfate 90 mcg/actuation HFA aerosol inhaler 1 puff inhalation DIRECTED PRN (Reason: Shortness Of Breath Or Wheezing) RF: 0 Discharge Orders: Discharge Order (Routine); Ordered 07/18/21 Ordered By: Dai Soto/Other Patient Handouts: Small Bowel Obstruction, Controlling High Blood Pressure Admission Data Admit Date/Time: 07/14/21 21:14 Attending Provider: William Xiong Admit Provider: Blaine Parekh Primary Care Provider: Rashard Elaine Other Providers: Blaine Parekh ; Venu Bower Other Interventions: Discharge Summary Assessment (RN) Last Done: 07/18/21 13:53 Supervising Physician Co-Signing Physician Notes During face to face encounter, obtained history of hospital stay, and physical examination. Reviewed above note and agree with it. Discussed with patient and APC Artie discharge plan. Patient agrees. Patient admitted with Small bowel obstruction. Patient noew tolerating oral intake. will continue diet recommendations as above. Coding Level of Care Code D/C DAY MANAGEMENT >30 MINS Diagnoses SBO (small bowel obstruction) K56.609 SIRS (systemic inflammatory response syndrome) R65.10 Hypokalemia E87.6 Hypomagnesemia E83.42 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 R00.2 DMII (diabetes mellitus, type 2) E11.9 HLD (hyperlipidemia) E78.5 Asthma J45.909 Anxiety F41.9 HTN (hypertension) I10 Keratosis L57.0
[2021-07-18] MEDS: ACETAMINOPHEN 500 MG TAB PO PRN (13:47)
== END 2021-07-18 14:33 | disposition home or self-care (01) | DRG 389 ==
LOC: ED 18:10 → SUATTDRO 21:14 → 3E 21:14

== ENCOUNTER 2021-12-30 19:07 | Inpatient (IN) ==
[2021-12-30 21:02] LABS: Basophils # (auto) 0.02 K/uL (0-0.2); Basophils % (auto) 0.2 %; Hematocrit (blood only) 31.6 % (34.1-44.9); Hemoglobin 11.1 g/dl (12.0-16.0); Immature Granulocytes # (auto) 0.15 K/uL (0.00-0.02); Immature Granulocytes % (auto) 1.5 %; Lymphocytes # (auto) 0.43 K/uL (1.2-3.4); Lymphocytes % (auto) 4.2 %; Mean Corpuscular Hemoglobin 29.7 pg (25.0-34.0); Mean Corpuscular Hgb Conc 35.1 g/dL (32.0-36.0); Mean Corpuscular Volume 84.5 fL (80.0-100.0); Mean Platelet Volume 10.1 fL (9.4-12.3); Monocytes # (auto) 1.14 K/uL (0.24-0.82); Monocytes % (auto) 11.2 %; Neutrophils # (auto) 8.43 K/uL (1.4-6.5); Neutrophils % (auto) 82.9 %; Platelet Count 318 K/uL (130-400); RDW Coefficient of Variation 12.8 % (11.5-14.5); RDW Standard Deviation 39.7 fL (36.4-46.3); Red Blood Count 3.74 M/uL (3.93-5.22); White Blood Count 10.17 K/ul (4.8-10.8)
[2021-12-30 21:02] LABS: Influenza A virus by PCR Negative (Neg); Influenza B virus by PCR Negative (Neg); RSV by PCR Negative (Neg); SARS CoV2 RNA(COVID-19) InHosp NEGATIVE (Negative)
[2021-12-30 21:03] LABS: Alanine Aminotransferase 156 U/L (7-52); Albumin Globulin Ratio 0.9 (0.9-2); Albumin Level 3.6 gm/dl (3.4-5.0); Alkaline Phosphatase 328 U/L (34-104); Anion Gap 12 (3-11); Aspartate Aminotransferase 184 U/L (13-39); BUN Creatinine Ratio 20.4 (10-20); Bilirubin,Total 0.7 mg/dl (0.2-1.0); Blood Urea Nitrogen 22 mg/dl (6-23); Carbon Dioxide 23 mmol/L (21-32); Chloride 89 mmol/L (98-107); Est GFR (African American) 58.6 ml/min; Est GFR (Non-African American) 50.5 ml/min; Globulin 3.9 gm/dl (2.5-4.0); Glucose 137 mg/dl (70-99(Fasting)); Potassium 2.8 mmol/L (3.5-5.1); Sodium 124 mmol/L (136-145); Total Protein 7.5 gm/dl (6.0-8.3)
--- NOTE | 2021-12-30 21:14 | XRay Report ---
XR chest 1V not portable CLINICAL HISTORY: A pod waiting room R/O COVID COMPARISON STUDY: Chest CT September 30, 2021. FINDINGS: No pneumothorax or pleural effusion is noted. Note is made of asymmetric left mid and lower lung airspace opacity with interstitial thickening. Right lung is clear. Cardiac size is normal. Med iastinal contours are normal. IMPRESSION: Asymmetric left mid and lower lung airspace opacity with interstitial thickening. This f avors an infectious process. Radiographic follow-up to ensure resolution is recommended. ACT 112: Negative or not required by law. Electronically signed by: Catarino Hernandez M.D. 12/30/2021 9:13 PM
[2021-12-30] MEDS ORDERED: POTASSIUM CHLORIDE CRTAB 20 MEQ TABCR PO STA (23:13)
--- NOTE | 2021-12-30 23:13 | Emergency Department Note ---
Impression & Plan Pneumonia ADMIT ED Provider Note HPI: The patient is a 76-year-old female with history of anxiety, type 2 diabetes, hyperlipidemia, asthma, presents the emergency department with a chief complaint of shortness of breath and cough that has been worsening over the past 2 days. Patient does arrive with fever 38.8, she arrives with borderline oxygen saturations at 91% and therefore was placed on nasal cannula oxygen with good improvement in her oxygenation. Patient is not tachycardic on arrival, blood pressure stable. Patient denies any chest pain. ROS: -Pulmonary: Cough, shortness of breath *10 point review systems was conducted and is otherwise negative unless stated above *Outpatient medications and allergy history reviewed PE: General: Alert, NAD HEENT: Normocephalic, atraumatic Eyes: Extraocular eye movement is intact, no scleral erythema Pulmonary: Coarse breath sounds at the bases bilaterally without wheezing Cardio: Regular rate and rhythm GI: Abdomen is soft, nontender : No suprapubic tenderness MSK: No evidence of trauma or malformation of the extremities, no edema Skin: No evidence of rash Neuro: Alert, no focal deficits Psychiatric: Cooperative youth nutritional monitor: - An order was placed for continuous cardiac monitoring - Patient was noted to be in sinus rhythm with a rate of 90 EKG: Rate: 95 Rhythm: Normal sinus rhythm Intervals: Within normal limits ST changes: No ST elevation Time: 1955 Medical Decision Making: Patient presented to the emergency department with symptoms concerning for pneumonia, she has had a cough and weakness for the past several days. She has borderline oxygen saturations on arrival at 91% and therefore was placed on nasal cannula oxygen in triage. Patient also arrived with fever. Lab work shows multiple abnormalities in the the electrolytes including hyponatremia 124, hypokalemia 2.8, no leukocytosis and slight hypochloremia. Blood cultures were drawn shortly after I assessed the patient, lactic acid was also added to her triage lab work. I also added a troponin. EKG does not show any acute ST elevation and patient denies any chest pain. Chest x-ray shows evidence of a left-sided pneumonia. COVID-19 testing is negative. My assessment prior to admission the patient is resting comfortably in bed on nasal cannula oxygen, given her fever, and her lab abnormalities I did discuss the case with the on-call hospitalist, Dr. Graves, who accepted the patient to a telemetry bed for further management. Hypokalemia was repleted orally here in the ED as the patient's work of breathing seemed appropriate following administration of nasal cannula oxygen. Will defer IV fluids given the patient's hyponatremia at this time. She is otherwise hemodynamically stable. Patient is in agreement to the above plan and she was admitted in stable condition. She was treated with IV ceftriaxone and IV azithromycin as chest x- ray does show left-sided pneumonia. Diagnosis: 1. Community-acquired pneumonia, left-sided 2. Hypokalemia 3. Hyponatremia 4. Hypochloremia 5. Fever Disposition: ADMIT Rashard Valdez DO Emergency Medicine Past Med/Surg History Medical History Anxiety Asthma DMII (diabetes mellitus, type 2) HLD (hyperlipidemia) HTN (hypertension) 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 Surgical History H/O: hysterectomy History of cholecystectomy Social History Smoking Status: Never smoker Tobacco Type: Cigarettes Second Hand Exposure: No; Hx Alcohol Use: Yes Alcohol type: wine Hx Substance Use: No Preferred Language: [place] Communication Ability: Effective Beliefs That Will Affect Care: None Current Living Situation: Spouse Feels Safe at Home: Yes Assistive Devices: None Allergies Allergies Allergy/AdvReac Type Severity Reaction Status Date / Time Iodinated Contrast Media Allergy Severe Anaphylaxis Verified 12/30/21 23:36 butorphanol [From Stadol] AdvReac Severe HALLUCINATI Verified 12/30/21 23:36 ONS codeine AdvReac Intermediate Gastrointestinal Verified 12/30/21 23:36 Upset Home Meds Home Medications Medication Instructions Recorded Confirmed albuterol sulfate 90 mcg/actuation 1 puff inhalation DIRECTED PRN 07/14/21 12/30/21 aerosol inhaler Shortness Of Breath Or Wheezing atorvastatin 40 mg tablet 40 mg PO QAM 07/14/21 12/30/21 diltiazem HCl 300 mg 300 mg PO DAILY 07/14/21 12/30/21 capsule,extended release 24 hr fluoxetine 40 mg capsule 40 mg PO QAM 07/14/21 12/30/21 gabapentin 300 mg capsule 300 mg PO DAILY PRN RLS 07/14/21 12/30/21 metformin 500 mg tablet 1,000 mg PO BID 07/14/21 12/30/21 trazodone 50 mg tablet 50 mg PO HS PRN Sleep 07/14/21 12/30/21 atenolol 50 mg tablet 50 mg PO QAM 12/30/21 12/30/21 fluoxetine 20 mg capsule 20 mg PO QAM 12/30/21 12/30/21 hydrochlorothiazide 25 mg tablet 25 mg PO QAM 12/30/21 12/30/21 Previous Rx's Medication Instructions Recorded losartan 25 mg tablet 25 mg PO QAM #30 tabs 07/18/21 pantoprazole 40 mg tablet,delayed 40 mg PO DAILY #30 tabs 07/18/21 release (Protonix) Results & Data (ED) Vital Signs Vital Signs - 24 hr 12/30/21 19:35 12/30/21 22:32 Temperature 36.4 C L 38.8 C H Temperature Source Temporal Artery Scan Oral Pulse Rate 96 H Pulse Rate [Left Finger] 89 Pulse Rhythm [Left Finger] Regular Respiratory Rate 20 Respiratory Effort / Characteristics Non-Labored Spontaneous Respiratory Depth Normal Normal Respiratory Pattern Regular Blood Pressure 115/63 Blood Pressure [Left Arm] 148/90 H Blood Pressure Mean 80 Blood Pressure Mean [Left Arm] 109 Pulse Oximetry 91 93 Oxygen Delivery Method Room Air Nasal Cannula Oxygen Flow Rate 4 Sepsis Recent Fever Within 48 Hours Yes Sepsis New/Unexplained Change in Mental Status No Sepsis Action Taken by Nursing No Action Required Laboratory Data Result diagrams: 12/30/21 20:18 12/30/21 20:18 Lab Results 12/30/21 12/30/21 12/30/21 Range/Units 20:03 20:18 20:18 WBC 10.17 (4.8-10.8) K/ul RBC 3.74 L (3.93-5.22) M/uL Hgb 11.1 L (12.0-16.0) g/dl Hct 31.6 L (34.1-44.9) % MCV 84.5 (80.0-100.0) fL MCH 29.7 (25.0-34.0) pg MCHC 35.1 (32.0-36.0) g/dL RDW Std Deviation 39.7 (36.4-46.3) fL RDW Coeff of [place] 12.8 (11.5-14.5) % Plt Count 318 (130-400) K/uL MPV 10.1 (9.4-12.3) fL Immature Gran % (Auto) 1.5 % Neut % (Auto) 82.9 % Lymph % (Auto) 4.2 % [place] % (Auto) 11.2 % Eos % (Auto) 0.0 % Baso % (Auto) 0.2 % Neut # (Auto) 8.43 H (1.4-6.5) K/uL Lymph # (Auto) 0.43 L (1.2-3.4) K/uL [place] # (Auto) 1.14 H (0.24-0.82) K/uL Eos # (Auto) 0.00 (0-0.50) K/uL Baso # (Auto) 0.02 (0-0.2) K/uL Immature Gran # (Auto) 0.15 H (0.00-0.02) K/uL Sodium 124 L (136-145) mmol/L Potassium 2.8 L (3.5-5.1) mmol/L Chloride 89 L (98-107) mmol/L Carbon Dioxide 23 (21-32) mmol/L Anion Gap 12 H (3-11) BUN 22 (6-23) mg/dl Creatinine 1.08 (0.6-1.2) mg/dl Est Cr Clr Drug Dosing Not Reportable Est GFR ( Amer) 58.6 ml/min Est GFR (Non-Af Amer) 50.5 ml/min BUN/Creatinine Ratio 20.4 H (10-20) Glucose 137 H (70-99(Fasting)) mg/dl Calcium 9.0 (8.5-10.1) mg/dl Total Bilirubin 0.7 (0.2-1.0) mg/dl AST 184 H (13-39) U/L ALT 156 H (7-52) U/L Alkaline Phosphatase 328 H (34-104) U/L Total Protein 7.5 (6.0-8.3) gm/dl Albumin 3.6 (3.4-5.0) gm/dl Globulin 3.9 (2.5-4.0) gm/dl Albumin/Globulin Ratio 0.9 (0.9-2) Urine Color Urine Appearance (Clear) Urine pH (4.5-7.5) Ur Specific [place] (1.000-1.030) Urine Protein (Negative) Urine Glucose (UA) (Negative) Urine Ketones (Negative) Urine Blood (Negative) Urine Nitrite (Negative) Urine Bilirubin (Negative) Urine Urobilinogen (Negative) Ur Leukocyte Esterase (Negative) SARS-CoV-2 (PCR) NEGATIVE (Negative) Influenza Type A (PCR) Negative (Neg) Influenza Type B (PCR) Negative (Neg) RSV (RT-PCR) Negative (Neg) 12/30/21 Range/Units 23:11 WBC (4.8-10.8) K/ul RBC (3.93-5.22) M/uL Hgb (12.0-16.0) g/dl Hct (34.1-44.9) % MCV (80.0-100.0) fL MCH (25.0-34.0) pg MCHC (32.0-36.0) g/dL RDW Std Deviation (36.4-46.3) fL RDW Coeff of Tayo (11.5-14.5) % Plt Count (130-400) K/uL MPV (9.4-12.3) fL Immature Gran % (Auto) % Neut % (Auto) % Lymph % (Auto) % [place] % (Auto) % Eos % (Auto) % Baso % (Auto) % Neut # (Auto) (1.4-6.5) K/uL Lymph # (Auto) (1.2-3.4) K/uL [place] # (Auto) (0.24-0.82) K/uL Eos # (Auto) (0-0.50) K/uL Baso # (Auto) (0-0.2) K/uL Immature Gran # (Auto) (0.00-0.02) K/uL Sodium (136-145) mmol/L Potassium (3.5-5.1) mmol/L Chloride (98-107) mmol/L Carbon Dioxide (21-32) mmol/L Anion Gap (3-11) BUN (6-23) mg/dl Creatinine (0.6-1.2) mg/dl Est Cr Clr Drug Dosing Est GFR ( Amer) ml/min Est GFR (Non-Af Amer) ml/min BUN/Creatinine Ratio (10-20) Glucose (70-99(Fasting)) mg/dl Calcium (8.5-10.1) mg/dl Total Bilirubin (0.2-1.0) mg/dl AST (13-39) U/L ALT (7-52) U/L Alkaline Phosphatase (34-104) U/L Total Protein (6.0-8.3) gm/dl Albumin (3.4-5.0) gm/dl Globulin (2.5-4.0) gm/dl Albumin/Globulin Ratio (0.9-2) Urine Color Yellow Urine Appearance Clear (Clear) Urine pH 6.5 (4.5-7.5) Ur Specific [place] 1.012 (1.000-1.030) Urine Protein 1+ H (Negative) Urine Glucose (UA) Negative (Negative) Urine Ketones Trace H (Negative) Urine Blood Trace H (Negative) Urine Nitrite Negative (Negative) Urine Bilirubin Negative (Negative) Urine Urobilinogen Negative (Negative) Ur Leukocyte Esterase 2+ H (Negative) SARS-CoV-2 (PCR) (Negative) Influenza Type A (PCR) (Neg) Influenza Type B (PCR) (Neg) RSV (RT-PCR) (Neg) Imaging Data Radiologist's Impression: Chest X-Ray 12/30/21 19:36 XR chest 1V not portable CLINICAL HISTORY: A pod waiting room R/O COVID COMPARISON STUDY: Chest CT September 30, 2021. FINDINGS: No pneumothorax or pleural effusion is noted. Note is made of asymmetr ic left mid and lower lung airspace opacity with interstitial thickening. Right lung is clear. Cardiac size is normal. Mediastinal contours are normal. IMPRESSION: Asymmetric left mid and lower lung airspace opacity with interstitial thickening. This favors an infectious process. Radiographic follow- up to ensure resolution is recommended. ACT 112: Negative or not required by law. Electronically signed by: Catarino Hernandez M.D. 12/30/2021 9:13 PM Discharge Plan Visit Data Chief Complaint: Flu Like Symptoms Stated Complaint: COVID SYMPTOMS, PNEUMONIA ED Provider: Rashard Valdez Discharge Problem: Pneumonia Patient Disposition: Home - Self-Care Forms Stand Alone Forms: [facility], Virtual Emergency Department, Important Visit Information Prescriptions Prescriptions: No Action hydrochlorothiazide 25 mg tablet 25 mg PO QAM fluoxetine 20 mg capsule 20 mg PO QAM atenolol 50 mg tablet 50 mg PO QAM fluoxetine 40 mg capsule 40 mg PO QAM atorvastatin 40 mg tablet 40 mg PO QAM metformin 500 mg tablet 1,000 mg PO BID trazodone 50 mg tablet 50 mg PO HS PRN (Reason: Sleep) diltiazem HCl 300 mg capsule,extended release 24hr 300 mg PO DAILY gabapentin 300 mg capsule 300 mg PO DAILY PRN (Reason: RLS) albuterol sulfate 90 mcg/actuation HFA aerosol inhaler 1 puff inhalation DIRECTED PRN (Reason: Shortness Of Breath Or Wheezing) losartan 25 mg Tablet 25 mg PO QAM Qty: 30 0RF pantoprazole [Protonix] 40 mg tablet,delayed release (DR/EC) 40 mg PO DAILY Qty: 30 0RF Referrals Referrals: Rashard Elaine MD [Primary Care Provider] -
[2021-12-30] MEDS ORDERED: cefTRIAXone SODIUM 1,000 MG/50 ML BAG IV STA (23:17)
[2021-12-30] MEDS ORDERED: AZITHROMYCIN 500 MG in DEXTROSE 5% 250 ML IV ONE (23:17)
[2021-12-30 23:51] LABS: Appearance Urine Clear (Clear); Bilirubin Urine Negative (Negative); Blood Urine Trace (Negative); Color Urine Yellow; Epithelial Cell Urine Auto >30 /lpf (0-5); Glucose Urine UA Negative (Negative); Ketones Urine Trace (Negative); Leukocyte Esterase Urine 2+ (Negative); Nitrite Urine Negative (Negative); Protein Urine 1+ (Negative); RBC Urine Automated 0-4 /hpf (0-4); Specific Gravity Urine 1.012 (1.000-1.030); Urobilinogen Urine Negative (Negative); pH Urine 6.5 (4.5-7.5)
--- NOTE | 2021-12-31 00:21 | History & Physical Report ---
Date of Service December 31, 2021 Assessment & Plan (1) Pneumonia: Plan: 76yo female presenting with one week of progressive cough productive for green sputum, dyspnea as well as fever, weakness, nausea, vomiting and diarrhea. Febrile on arrival. O2 saturation is borderline - presently on supplemental O2 and doing well. CXR suggestive of left sided PNA. CURB-65=2 (moderate risk). No recent hospitalization. No risk for multi-drug resistant infections or Pseudomonas. Covid is NEGATIVE -Admit to medical with telemetry -Follow blood culture sent in ER -Check sputum culture -Check Legionella urinary antigen given Pulmonary + GI + hyponatremia -Antibiotics for treatment of CAP - Ceftriaxone 1gm IV daily and Azithromycin -Supplemental O2 as needed -Tylenol PRN -Toradol PRN (2) Elevated LFTs: Plan: Patient with elevation of TNT=305, ALT-156 an NI=032. Tbili is normal at 0.7. ?Secondary to infection, Tylenol use -Check Acetaminophen level -Check Ferritin -Repeat LFTs in AM -Additional workup, imaging etc pending AM results (3) Electrolyte abnormality: Plan: Gz=446. Possibly secondary to acute pulmonary infection, Legionella, decreased oral intake. No symptoms of hyponatremia -Check urine and serum osm -Check urine Na K=2.8. Given 80mEq -Repeat BMP today (4) HTN (hypertension): Plan: Blood pressure mildly elevated at 148/90 presently -Continue Atenolol 50mg po qAM -Continue Losartan 25mg po qAM -Continue Diltiazem 300mg po daily -Monitor (5) Anxiety: Plan: Well controlled on medication -Continue Fluoxetine (6) DMII (diabetes mellitus, type 2): Plan: Chronic. Blood yvckh=131. No HgbA1C on record -Check A1C with AM labs -ISS (7) PAF (paroxysmal atrial fibrillation): Plan: Chronic. Patient presently in NSR -Continue Cardizem 300mg po daily -No anticoagulation (8) HLD (hyperlipidemia): Plan: Chronic. -Continue Atorvastatin daily Restless Leg: -Continue Gabapentin F/E/N - Ppx - Low risk for DVT Code - DNR per discussion with patient, daughter present as well Dispo - Admit to medical with telemetry History of Present Illness Chief Complaint: Cough, SOB Primary Care Provider: Rashard Bui is a 76yo female with history of DM, HTN, HLP, Asthma and PAF presenting with 1 week of progressive cough with green colored sputum, fever, MEJIA. She has had poor appetite and decreased oral intake as well as nausea, non-bloody/non-bilious vomiting and watery diarrhea, weakness, fatigue and dizziness. She reports pain in her left lung with deep breathing. She was seen at Urgent Care this evening and subsequently sent to the ER for concern for left-sided PNA detected on auscultation. She also complaints of severe pain in left yarsanism for which she has been taking Tylenol - possibly over 6gm/day (Reports taking 500mg tablets x 4 2-3 times daily) Last took Tylenol this AM. No sick contacts. No recent travel. She has received Covid Vaccination x 2 + Booster. In the ER patient febrile, HD stable, borderline hypoxic - supplemental O2 placed. Presently 93% on 4L Daughter - Kailyn Bui: [phone] Friend - Cassidy Ghosh: [phone] Allergies Allergy/AdvReac Type Severity Reaction Status Date / Time Iodinated Contrast Media Allergy Severe Anaphylaxis Verified 12/30/21 23:36 butorphanol [From Stadol] AdvReac Severe HALLUCINATI Verified 12/30/21 23:36 ONS codeine AdvReac Intermediate Gastrointestinal Verified 12/30/21 23:36 Upset Home Medications Medication Instructions Recorded Confirmed Type albuterol sulfate 90 mcg/actuation 1 puff inhalation DIRECTED PRN 07/14/21 12/30/21 History aerosol inhaler Shortness Of Breath Or Wheezing atorvastatin 40 mg tablet 40 mg PO QAM 07/14/21 12/30/21 History diltiazem HCl 300 mg 300 mg PO DAILY 07/14/21 12/30/21 History capsule,extended release 24 hr fluoxetine 40 mg capsule 40 mg PO QAM 07/14/21 12/30/21 History gabapentin 300 mg capsule 300 mg PO DAILY PRN RLS 07/14/21 12/30/21 History metformin 500 mg tablet 1,000 mg PO BID 07/14/21 12/30/21 History trazodone 50 mg tablet 50 mg PO HS PRN Sleep 07/14/21 12/30/21 History losartan 25 mg tablet 25 mg PO QAM #30 tabs 07/18/21 12/30/21 Rx pantoprazole 40 mg tablet,delayed 40 mg PO DAILY #30 tabs 07/18/21 12/30/21 Rx release (Protonix) atenolol 50 mg tablet 50 mg PO QAM 12/30/21 12/30/21 History fluoxetine 20 mg capsule 20 mg PO QAM 12/30/21 12/30/21 History hydrochlorothiazide 25 mg tablet 25 mg PO QAM 12/30/21 12/30/21 History Past Med/Surg History Medical History Anxiety Asthma DMII (diabetes mellitus, type 2) HLD (hyperlipidemia) HTN (hypertension) 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 Surgical History H/O: hysterectomy History of cholecystectomy Family History (Updated 12/31/21 @ 03:52 by Shae Graves DO) Other Diabetes Heart disease Social History Smoking Status: Never smoker Tobacco Type: Cigarettes Second Hand Exposure: No; Hx Alcohol Use: Yes Alcohol type: wine Hx Substance Use: No Preferred Language: [place] Communication Ability: Effective Beliefs That Will Affect Care: None Current Living Situation: Spouse Feels Safe at Home: Yes Assistive Devices: None Review of Systems Review of Systems: All systems reviewed & are unremarkable except as noted in HPI & below Physical Exam Physical Exam: General: patient resting comfortably, NAD, non-toxic in appearance, AA&O x 4 Skin: warm, dry, intact, no rashes or lesions HEENT: NC/AT, PERRL, EOMI, anicteric sclera, conjunctiva without injection, external ear normal to inspection and nontender, nares patent, Dry mucus membranes, dentition intact, no oropharyngeal lesions, neck supple, trachea midline, no LAD, no thyromegaly, no JVD Heart: +S1/S2, regular, no m/r/g Lungs: equal air entry bilaterally, + crackles/coarse breath sounds in left base and mid-lung, no wheeze Abd: +BS, soft, NT/ND, no masses/organomegaly/ascites, no RUQ tenderness Ext: warm, 2+ pulses in UE/LE bilaterally, no clubbing/cyanosis or edema Neuro: nonfocal, patient AA&O x 4, speech intact, no facial droop, moving all extremities on command with equal strength 5/5 Results & Data Results & Data ([facility]) Vital Signs (Past 12 Hours) Vital Signs Temp Pulse Pulse Resp BP BP Pulse Ox 12/30/21 22:32 38.8 C H 89 148/90 H 93 12/30/21 19:35 36.4 C L 96 H 20 115/63 91 O2 Del Method O2 Flow Rate 12/30/21 22:32 Nasal Cannula 4 12/30/21 19:35 Room Air Laboratory Results Laboratory Results WBC 10.17 K/ul (4.8-10.8) 12/30/21 20:18 RBC 3.74 M/uL (3.93-5.22) L 12/30/21 20:18 Hgb 11.1 g/dl (12.0-16.0) L 12/30/21 20:18 Hct 31.6 % (34.1-44.9) L 12/30/21 20:18 MCV 84.5 fL (80.0-100.0) 12/30/21 20:18 MCH 29.7 pg (25.0-34.0) 12/30/21 20:18 MCHC 35.1 g/dL (32.0-36.0) 12/30/21 20:18 RDW Std Deviation 39.7 fL (36.4-46.3) 12/30/21 20:18 RDW Coeff of Tayo 12.8 % (11.5-14.5) 12/30/21 20:18 Plt Count 318 K/uL (130-400) 12/30/21 20:18 MPV 10.1 fL (9.4-12.3) 12/30/21 20:18 Immature Gran % (Auto) 1.5 % 12/30/21 20:18 Neut % (Auto) 82.9 % 12/30/21 20:18 Lymph % (Auto) 4.2 % 12/30/21 20:18 [place] % (Auto) 11.2 % 12/30/21 20:18 Eos % (Auto) 0.0 % 12/30/21 20:18 Baso % (Auto) 0.2 % 12/30/21 20:18 Neut # (Auto) 8.43 K/uL (1.4-6.5) H 12/30/21 20:18 Lymph # (Auto) 0.43 K/uL (1.2-3.4) L 12/30/21 20:18 [place] # (Auto) 1.14 K/uL (0.24-0.82) H 12/30/21 20:18 Eos # (Auto) 0.00 K/uL (0-0.50) 12/30/21 20:18 Baso # (Auto) 0.02 K/uL (0-0.2) 12/30/21 20:18 Immature Gran # (Auto) 0.15 K/uL (0.00-0.02) H 12/30/21 20:18 PT 10.8 Seconds (9.0-12.0) 12/30/21 20:17 INR 1.0 (0.9-1.1) 12/30/21 20:17 Sodium 124 mmol/L (136-145) L 12/30/21 20:18 Potassium 2.8 mmol/L (3.5-5.1) L 12/30/21 20:18 Chloride 89 mmol/L (98-107) L 12/30/21 20:18 Carbon Dioxide 23 mmol/L (21-32) 12/30/21 20:18 Anion Gap 12 (3-11) H 12/30/21 20:18 BUN 22 mg/dl (6-23) 12/30/21 20:18 Creatinine 1.08 mg/dl (0.6-1.2) 12/30/21 20:18 Est Cr Clr Drug Dosing Not Reportable 12/30/21 20:18 Est GFR ( Amer) 58.6 ml/min 12/30/21 20:18 Est GFR (Non-Af Amer) 50.5 ml/min 12/30/21 20:18 BUN/Creatinine Ratio 20.4 (10-20) H 12/30/21 20:18 Glucose 137 mg/dl (70-99(Fasting)) H 12/30/21 20:18 Osmolality 264 mOsm/kg (280-300) L 12/30/21 20:17 Lactate 0.6 mmol/L (0.4-2.0) 12/31/21 00:38 Calcium 9.0 mg/dl (8.5-10.1) 12/30/21 20:18 Phosphorus 3.1 mg/dl (2.5-4.9) 12/31/21 00:24 Magnesium 1.8 mg/dl (1.7-2.4) 12/31/21 00:24 Ferritin 1207.4 ng/ml (8-388) H 12/31/21 00:24 Total Bilirubin 0.7 mg/dl (0.2-1.0) 12/30/21 20:18 AST 184 U/L (13-39) H 12/30/21 20:18 ALT 156 U/L (7-52) H 12/30/21 20:18 Alkaline Phosphatase 328 U/L (34-104) H 12/30/21 20:18 Troponin I High Sens 8.9 pg/ml (0-14) 12/31/21 00:24 Total Protein 7.5 gm/dl (6.0-8.3) 12/30/21 20:18 Albumin 3.6 gm/dl (3.4-5.0) 12/30/21 20:18 Globulin 3.9 gm/dl (2.5-4.0) 12/30/21 20:18 Albumin/Globulin Ratio 0.9 (0.9-2) 12/30/21 20:18 Urine Color Yellow 12/30/21 23:11 Urine Appearance Clear (Clear) 12/30/21 23:11 Urine pH 6.5 (4.5-7.5) 12/30/21 23:11 Ur Specific [place] 1.012 (1.000-1.030) 12/30/21 23:11 Urine Protein 1+ (Negative) H 12/30/21 23:11 Urine Glucose (UA) Negative (Negative) 12/30/21 23:11 Urine Ketones Trace (Negative) H 12/30/21 23:11 Urine Blood Trace (Negative) H 12/30/21 23:11 Urine Nitrite Negative (Negative) 12/30/21 23:11 Urine Bilirubin Negative (Negative) 12/30/21 23:11 Urine Urobilinogen Negative (Negative) 12/30/21 23:11 Ur Leukocyte Esterase 2+ (Negative) H 12/30/21 23:11 Urine WBC (Auto) 5-10 /hpf (0-5) H 12/30/21 23:11 Urine RBC (Auto) 0-4 /hpf (0-4) 12/30/21 23:11 U Hyaline Cast (Auto) 1-5 /lpf (0-5) 12/30/21 23:11 U Epithel Cells (Auto) >30 /lpf (0-5) H 12/30/21 23:11 Urine Bacteria (Auto) 1+ (Negative) H 12/30/21 23:11 Urine Yeast Budding (None Prsent) A 12/30/21 23:11 Acetaminophen < 3 ug/ml (10-30) L 12/31/21 00:24 SARS-CoV-2 (PCR) NEGATIVE (Negative) 12/30/21 20:03 Influenza Type A (PCR) Negative (Neg) 12/30/21 20:03 Influenza Type B (PCR) Negative (Neg) 12/30/21 20:03 RSV (RT-PCR) Negative (Neg) 12/30/21 20:03 Impressions Chest X-Ray 12/30/21 19:36 XR chest 1V not portable CLINICAL HISTORY: A pod waiting room R/O COVID COMPARISON STUDY: Chest CT September 30, 2021. FINDINGS: No pneumothorax or pleural effusion is noted. Note is made of asymmetric left mid and lower lung airspace opacity with interstitial thickening. Right lung is clear. Cardiac size is normal. Mediastinal contours are normal. IMPRESSION: Asymmetric left mid and lower lung airspace opacity with interstitial thickening. This favors an infectious process. Radiographic follow- up to ensure resolution is recommended. ACT 112: Negative or not required by law. Electronically signed by: Catarino Hernandez M.D. 12/30/2021 9:13 PM Code Status & VTE Plan VTE Prophylaxis Plan VTE Prophylaxis will be ordered: Yes PG Care Time/CCT Total # of Minutes Spent Total Time Spent with Patient: Total time spent is greater than 50% in coordination of care (as documented) at patient's floor/unit and/or counseling patient: Coding Level of Care Code 61876 Initial Inpt Care Lvl 3 Diagnoses Pneumonia J18.9 Laterality: left Lung location: lower lobe of lung Pneumonia type: due to unspecified organism Elevated LFTs R79.89 Electrolyte abnormality E87.8 HTN (hypertension) I10 Anxiety F41.9 DMII (diabetes mellitus, type 2) E11.9 PAF (paroxysmal atrial fibrillation) I48.0 HLD (hyperlipidemia) E78.5 (1) Pneumonia Laterality: left Lung location: lower lobe of lung Pneumonia type: due to unspecified organism Qualified Code(s): J18.9 - Pneumonia, unspecified organism
[2021-12-31] MEDS ORDERED: GLUCOSE 10 TAB/TUBE PO PRN (00:38)
[2021-12-31] MEDS ORDERED: GABAPENTIN 300 MG CAP PO PRN (00:38)
[2021-12-31] MEDS ORDERED: ONDANSETRON INJ 2 MG/ML 2 ML VIAL IV PRN (00:38)
[2021-12-31] MEDS ORDERED: DEXTROSE 50% 50 ML SYRINGE IV PRN (00:38)
[2021-12-31] MEDS ORDERED: CARBOHYDRATES FOR HYPOGLYCEMIA PO PRN (00:38)
[2021-12-31] MEDS ORDERED: GLUCOSE 40% GEL 15 GM TUBE PO PRN (00:38)
[2021-12-31] MEDS ORDERED: ALBUTEROL HFA 8 GM INHALER INH PRN (00:38)
[2021-12-31] MEDS ORDERED: GLUCAGON FOR INJ 1 MG VIAL SQ PRN (00:38)
[2021-12-31] MEDS: oxyCODONE HCL IR 5 MG TAB (IMMEDIATE RELEASE) PO PRN ×3 (01:11→20:10)
[2021-12-31 01:12] LABS: Prothrombin Time 10.8 Seconds (9.0-12.0)
[2021-12-31] MEDS: traZODone HCL 50 MG TAB PO PRN ×2 (01:25→20:10)
[2021-12-31 01:30] LABS: Magnesium 1.8 mg/dl (1.7-2.4); Phosphorus 3.1 mg/dl (2.5-4.9)
[2021-12-31 01:31] LABS: Troponin I High Sensitivity 8.9 pg/ml (0-14)
[2021-12-31 01:45] LABS: Ferritin 1207.4 ng/ml (8-388)
[2021-12-31 02:59] LABS: Bacteria Urine Automated 1+ (Negative)
[2021-12-31] MEDS ORDERED: ACETAMINOPHEN 325 MG TAB PO PRN (04:03)
[2021-12-31 07:11] LABS: Basophils # (auto) 0.01 K/uL (0-0.2); Basophils % (auto) 0.1 %; Eosinophils # (auto) 0.03 K/uL (0-0.50); Eosinophils % (auto) 0.4 %; Hematocrit (blood only) 29.8 % (34.1-44.9); Hemoglobin 10.5 g/dl (12.0-16.0); Immature Granulocytes # (auto) 0.06 K/uL (0.00-0.02); Immature Granulocytes % (auto) 0.7 %; Lymphocytes # (auto) 0.73 K/uL (1.2-3.4); Lymphocytes % (auto) 8.5 %; Mean Corpuscular Hemoglobin 29.7 pg (25.0-34.0); Mean Corpuscular Hgb Conc 35.2 g/dL (32.0-36.0); Mean Corpuscular Volume 84.2 fL (80.0-100.0); Mean Platelet Volume 9.8 fL (9.4-12.3); Monocytes # (auto) 1.12 K/uL (0.24-0.82); Monocytes % (auto) 13.1 %; Neutrophils # (auto) 6.61 K/uL (1.4-6.5); Neutrophils % (auto) 77.2 %; Platelet Count 321 K/uL (130-400); RDW Coefficient of Variation 12.7 % (11.5-14.5); Red Blood Count 3.54 M/uL (3.93-5.22); White Blood Count 8.56 K/ul (4.8-10.8)
[2021-12-31 07:13] LABS: Estimated Average Glucose 146 mg/dl; Hemoglobin A1C 6.7 % (4.5-5.6)
[2021-12-31 07:38] LABS: Albumin Level 3.3 gm/dl (3.4-5.0); BUN Creatinine Ratio 20.4 (10-20); Bilirubin Direct 0.1 mg/dl (0-0.2); Bilirubin,Total 0.5 mg/dl (0.2-1.0); Calcium 8.8 mg/dl (8.5-10.1); Creatinine Clr Calc Pharmacy 50.4 ml/min; Est GFR (African American) 70.2 ml/min; Est GFR (Non-African American) 60.5 ml/min; Potassium 2.8 mmol/L (3.5-5.1); Total Protein 6.8 gm/dl (6.0-8.3)
[2021-12-31] MEDS: ATENOLOL 50 MG TABLET PO SCH (08:23)
[2021-12-31] MEDS: ATORVASTATIN 40 MG TAB PO SCH (08:23)
[2021-12-31] MEDS: FLUoxetine HCL 20 MG CAP PO SCH (08:23)
[2021-12-31] MEDS: dilTIAZem HCL 300 MG CAPCR PO SCH (08:23)
[2021-12-31] MEDS: LOSARTAN POTASSIUM 25 MG TAB PO SCH (08:23)
[2021-12-31] MEDS: PANTOprazole 40 MG TAB PO SCH (08:24)
[2021-12-31] MEDS: INSULIN ASPART PER UNIT SC SCH ×4 (08:24→21:28)
[2021-12-31] MEDS ORDERED: FLUoxetine HCL 20 MG CAP PO SCH (09:00)
[2021-12-31] MEDS ORDERED: POTASSIUM CHLORIDE CRTAB 20 MEQ TABCR PO SCH (09:00)
--- NOTE | 2021-12-31 09:28 | Electrocardiogram Report ---
Test Reason : Blood Pressure : / mmHG Vent. Rate : 095 BPM Atrial Rate : 095 BPM P-R Int : 124 ms QRS Dur : 076 ms QT Int : 390 ms P-R-T Axes : 028 -03 010 degrees QTc Int : 490 ms Normal sinus rhythm ST depression in Anterolateral leads , consider ischemia Abnormal ECG When compared with ECG of 14-JUL-2021 18:21, ST now depressed in Anterolateral leads Confirmed by Forrest Haider ([id number]) on 12/31/2021 9:28:06 AM Referred By: REFERRED SELF Confirmed By:Forrest Haider
[2021-12-31] MEDS: SODIUM CHLORIDE 0.9% 1000ML 1,000 ML IV SCH ×2 (11:23→23:48)
[2021-12-31] MEDS ORDERED: POTASSIUM CHLORIDE CRTAB 20 MEQ TABCR PO ONE (15:00)
--- NOTE | 2021-12-31 15:04 | History & Physical Bridge Note ---
Date of Service December 31, 2021 History & Physical Bridge Note I have examined the patient, reviewed the History & Physical and in the interval since the performance of the History & Physical I have noted the following changes of clinical significance: Pt hospitalized with presumed community acquired pneumonia, on empiric abx coverage with Rocephin and Zithromax. Currently requiring 2L of O2, does not routinely wear oxygen (only uses a cpap at HS). Feels that her breathing is improving. Still has a cough and is bringing up some sputum. Noted low potassium this AM of 2.8 for which replacement has been ordered. Placed on gentle IVF d/t Na of 127. LFTs slowly trending down. VSS, lungs demonstrate bibasilar crackles, heart regular, legs w/o edema, belly soft and nontender with normoactive BS. Continue current abx. Attempt to obtain sputum sample for GS/C&S. Repeat labs ordered for tomorrow. Wean O2 as able. Add scheduled Duonebs and Mucinex. Plan d/w Dr. Espinoza. Please refer to full H&P for further details.
[2021-12-31] MEDS: ALBUT/IPRATROP 3MG/0.5MG NEB 3 ML VIAL NEB SCH (19:34)
[2021-12-31] MEDS: cefTRIAXone SODIUM 1,000 MG in DEXTROSE 5% 50 ML IV SCH (20:10)
[2021-12-31] MEDS: guaiFENesin 600 MG TABCR PO SCH (20:23)
[2021-12-31] MEDS: AZITHROMYCIN 500 MG in DEXTROSE 5% 250 ML IV SCH (21:28)
[2022-01-01 06:32] LABS: Basophils # (auto) 0.01 K/uL (0-0.2); Basophils % (auto) 0.2 %; Eosinophils # (auto) 0.16 K/uL (0-0.50); Eosinophils % (auto) 2.4 %; Hematocrit (blood only) 29.7 % (34.1-44.9); Hemoglobin 10.2 g/dl (12.0-16.0); Immature Granulocytes # (auto) 0.07 K/uL (0.00-0.02); Immature Granulocytes % (auto) 1.1 %; Lymphocytes # (auto) 0.98 K/uL (1.2-3.4); Lymphocytes % (auto) 14.8 %; Mean Corpuscular Hemoglobin 29.8 pg (25.0-34.0); Mean Corpuscular Hgb Conc 34.3 g/dL (32.0-36.0); Mean Corpuscular Volume 86.8 fL (80.0-100.0); Mean Platelet Volume 9.6 fL (9.4-12.3); Monocytes # (auto) 0.92 K/uL (0.24-0.82); Monocytes % (auto) 13.9 %; Neutrophils % (auto) 67.6 %; Platelet Count 351 K/uL (130-400); RDW Coefficient of Variation 13.2 % (11.5-14.5); RDW Standard Deviation 42.5 fL (36.4-46.3); Red Blood Count 3.42 M/uL (3.93-5.22); White Blood Count 6.64 K/ul (4.8-10.8)
[2022-01-01] MEDS: ALBUT/IPRATROP 3MG/0.5MG NEB 3 ML VIAL NEB SCH ×4 (07:06→19:10)
[2022-01-01 07:15] LABS: BUN Creatinine Ratio 19.2 (10-20); Bilirubin Direct 0.1 mg/dl (0-0.2); Bilirubin,Total 0.4 mg/dl (0.2-1.0); Calcium 8.6 mg/dl (8.5-10.1); Creatinine Clr Calc Pharmacy 60.2 ml/min; Est GFR (African American) 86.8 ml/min; Est GFR (Non-African American) 74.9 ml/min; Potassium 3.7 mmol/L (3.5-5.1); Total Protein 6.2 gm/dl (6.0-8.3)
[2022-01-01] MEDS: FLUoxetine HCL 20 MG CAP PO SCH (07:55)
[2022-01-01] MEDS: ATORVASTATIN 40 MG TAB PO SCH (07:58)
[2022-01-01] MEDS: LOSARTAN POTASSIUM 25 MG TAB PO SCH (08:01)
[2022-01-01] MEDS: ATENOLOL 50 MG TABLET PO SCH (08:01)
[2022-01-01] MEDS: dilTIAZem HCL 300 MG CAPCR PO SCH (08:06)
[2022-01-01] MEDS: guaiFENesin 600 MG TABCR PO SCH ×2 (08:06→20:44)
[2022-01-01] MEDS: PANTOprazole 40 MG TAB PO SCH (08:09)
[2022-01-01] MEDS: KETOROLAC TROMETHAMINE 15 MG/ML VIAL IV PRN ×2 (08:18→23:23)
[2022-01-01] MEDS: INSULIN ASPART PER UNIT SC SCH ×4 (10:00→20:51)
[2022-01-01] MEDS: SODIUM CHLORIDE 0.9% 1000ML 1,000 ML IV SCH (12:38)
--- NOTE | 2022-01-01 14:28 | Ultrasound Report ---
ABDOMINAL ULTRASOUND, RIGHT UPPER QUADRANT HISTORY: Liver, biliary system. COMPARISON: CT of the abdomen and pelvis July 14, 2021. FINDINGS: No hepatic lesions are identified. Liver morphology is normal. Common bile duct measures 1 mm in caliber. This is likely due to previous cholecystectomy. Echogenic shadowing material within th e intrahepatic bile ducts represents pneumobilia. Artifact from this gas makes evaluation somewhat di fficult. Pancreatic body is normal. Head and tail are partially obscured. There is no right hydroneph rosis. IMPRESSION: 1. Mild biliary ductal dilatation likely related to previous cholecystectomy. 2. Echogenic shadowing material within the intrahepatic bile ducts consistent with pneumobilia as gurvinder wn on prior CT. Evaluation mildly compromised due to shadowing from this gas. 3. No hepatic lesions. ACT 112: Negative or not required by law. Electronically signed by: Catarino Hernandez M.D. 01/01/2022 2:27 PM
--- NOTE | 2022-01-01 16:26 | Hospitalist Progress Note ---
Date of Service January 01, 2022 Assessment & Plan (1) Pneumonia: Plan: 76yo female presenting with one week of progressive cough productive for green sputum, dyspnea as well as fever, weakness, nausea, vomiting and diarrhea. Febrile on arrival. O2 saturation is borderline - presently on supplemental O2 and doing well. CXR suggestive of left sided PNA. CURB-65=2 (moderate risk). No recent hospitalization. No risk for multi-drug resistant infections or Pseudomonas. Covid is NEGATIVE -Follow blood culture sent in ER - NGTD -Check sputum culture -> Pending, but Gram stain with normal jesus alberto. -Check Legionella urinary antigen given Pulmonary + GI + hyponatremia - Pending - Continue antibiotics for treatment of CAP - Ceftriaxone 1gm IV daily and Azithromycin -Supplemental O2 as needed -Tylenol PRN -Toradol PRN (2) Elevated LFTs: Plan: Patient with elevation of ZKH=249, ALT-156 an TO=144. Tbili is normal at 0.7. ?Secondary to infection, Tylenol use - Acetaminophen level negative. - Repeat LFTs in AM -> Worse. - Liver u/s shows dilated biliary system consistent with prior cholecystectomy and pneumobilia consistent with sphincterectomy which goes back to CT scan from 07/2021. - Ferritin - 1207. - Hold statin - Acute hepatitis panel ordered - pending. - Will get full iron panel and repeat LFTs tomorrow. If still increasing, consider GI consult for more uncommon things such as Georges's disease, AIH, DILI. (3) Electrolyte abnormality: Plan: Tb=829. Possibly secondary to acute pulmonary infection, Legionella, decreased oral intake. No symptoms of hyponatremia - Returned to normal on 01/01 (4) HTN (hypertension): Plan: Blood pressure lower today at 100/50. - Continue Atenolol 50mg po qAM - Continue Losartan 25mg po qAM - Stopped Diltiazem 300mg po daily on 01/01 for lower BP. - Monitor (5) Anxiety: Plan: Well controlled on medication -Continue Fluoxetine (6) DMII (diabetes mellitus, type 2): Plan: Chronic. Blood vjouy=462. No HgbA1C on record -Check A1C with AM labs -ISS (7) PAF (paroxysmal atrial fibrillation): Plan: Chronic. Patient presently in NSR - Hold Cardizem; continue beta-darling - No anticoagulation (8) HLD (hyperlipidemia): Plan: Chronic. - Hold atorvastatin as above Restless Leg: -Continue Gabapentin F/E/N - Ppx - Low risk for DVT Code - DNR per discussion with patient, daughter present as well Dispo - Admit to medical with telemetry Admission and Anticipated Discharge Date Admission Date: December 31, 2021 Subjective Still very lethargic today. Sleeping with daughter in room. Sleeping with breathing treatment ongoing. Falls asleep with me. Cough somewhat improved. Reports no fevers/chills, chest pain, shortness of breath, abdominal pain, nausea, or vomiting. Physical Exam Constitutional: WD/WN, vitals as above Eyes: EOM intact bilaterally; no conjunctival abnormality ENMT: external ear and nose normal, oropharynx normal Neck: trachea midline, no thyromegaly normal visual inspection Respiratory: normal respiratory effort, lungs clear to auscultation no respiratory distress Cardiovascular: RRR, no murmur, no edema Gastrointestinal (Abdomen): Inspection/Auscultation: abdomen normal to inspection; abdomen not distended Musculoskeletal: no cyanosis or clubbing, extremities motor strength 5/5 Skin: no rashes, warm and dry Neurologic: moves all extremities and awake Psychiatric: Orientation: oriented to person and cooperative; + not alert (Fairly lethargic) Results & Data Results & Data ([facility]) Vital Signs (Past 12 Hours) Vital Signs Temp Pulse Resp BP Pulse Ox O2 Del Method O2 Flow Rate 01/01/22 15:49 36.6 C 67 18 99/51 L 93 Room Air 01/01/22 14:46 76 18 95 Nasal Cannula 3 01/01/22 11:07 79 18 91 Nasal Cannula 3 01/01/22 07:45 36.7 C 77 18 128/67 91 Nasal Cannula 2 01/01/22 07:45 Nasal Cannula 3 01/01/22 07:07 74 18 98 Nasal Cannula 3 01/01/22 06:43 36.4 C L 68 18 125/80 93 Nasal Cannula 2 PG Care Time/CCT Total # of Minutes Spent Total Time Spent with Patient: Total time spent is greater than 50% in coordination of care (as documented) at patient's floor/unit and/or counseling patient: Coding Level of Care Code 27525 Subseq Hosp Care Lvl 3 Diagnoses Pneumonia J18.9 Laterality: left Lung location: lower lobe of lung Pneumonia type: due to unspecified organism Elevated LFTs R79.89 Electrolyte abnormality E87.8 HTN (hypertension) I10 Anxiety F41.9 DMII (diabetes mellitus, type 2) E11.9 PAF (paroxysmal atrial fibrillation) I48.0 HLD (hyperlipidemia) E78.5 (1) Pneumonia Laterality: left Lung location: lower lobe of lung Pneumonia type: due to unspecified organism Qualified Code(s): J18.9 - Pneumonia, unspecified organism
[2022-01-01] MEDS: traZODone HCL 50 MG TAB PO PRN (20:44)
[2022-01-01] MEDS: cefTRIAXone SODIUM 1,000 MG in DEXTROSE 5% 50 ML IV SCH (20:45)
[2022-01-01] MEDS ORDERED: ALBUT/IPRATROP 3MG/0.5MG NEB 3 ML VIAL NEB PRN (21:10)
[2022-01-01] MEDS: AZITHROMYCIN 500 MG in DEXTROSE 5% 250 ML IV SCH (21:27)
[2022-01-02] MEDS: SODIUM CHLORIDE 0.9% 1000ML 1,000 ML IV SCH ×2 (00:33→13:30)
[2022-01-02 06:47] LABS: Basophils # (auto) 0.04 K/uL (0-0.2); Basophils % (auto) 0.5 %; Eosinophils # (auto) 0.26 K/uL (0-0.50); Eosinophils % (auto) 3.3 %; Hemoglobin 10.7 g/dl (12.0-16.0); Immature Granulocytes # (auto) 0.08 K/uL (0.00-0.02); Lymphocytes # (auto) 1.11 K/uL (1.2-3.4); Lymphocytes % (auto) 14.3 %; Mean Corpuscular Hemoglobin 29.7 pg (25.0-34.0); Mean Corpuscular Hgb Conc 34.5 g/dL (32.0-36.0); Mean Corpuscular Volume 86.1 fL (80.0-100.0); Mean Platelet Volume 9.7 fL (9.4-12.3); Monocytes % (auto) 10.3 %; Neutrophils # (auto) 5.48 K/uL (1.4-6.5); Neutrophils % (auto) 70.6 %; Platelet Count 444 K/uL (130-400); RDW Coefficient of Variation 13.3 % (11.5-14.5); RDW Standard Deviation 42.2 fL (36.4-46.3); White Blood Count 7.77 K/ul (4.8-10.8)
[2022-01-02 07:13] LABS: Partial Thromboplastin Time 28.3 Seconds (21.0-31.0); Prothrombin Time 10.8 Seconds (9.0-12.0)
[2022-01-02 07:27] LABS: Ferritin 1286.8 ng/ml (8-388)
[2022-01-02 07:29] LABS: BUN Creatinine Ratio 24.4 (10-20); Calcium 8.9 mg/dl (8.5-10.1); Creatinine Clr Calc Pharmacy 57.2 ml/min; Est GFR (African American) 81.7 ml/min; Est GFR (Non-African American) 70.5 ml/min; Potassium 3.9 mmol/L (3.5-5.1)
[2022-01-02 07:31] LABS: Albumin Globulin Ratio 0.9 (0.9-2); Albumin Level 3.1 gm/dl (3.4-5.0); Bilirubin,Total 0.3 mg/dl (0.2-1.0); Globulin 3.3 gm/dl (2.5-4.0); Magnesium 1.5 mg/dl (1.7-2.4); Total Protein 6.4 gm/dl (6.0-8.3)
[2022-01-02] MEDS: INSULIN ASPART PER UNIT SC SCH ×2 (09:35→12:26)
[2022-01-02] MEDS: guaiFENesin 600 MG TABCR PO SCH (09:48)
[2022-01-02] MEDS: FLUoxetine HCL 20 MG CAP PO SCH (09:48)
[2022-01-02] MEDS: PANTOprazole 40 MG TAB PO SCH (09:48)
[2022-01-02] MEDS: ATORVASTATIN 40 MG TAB PO SCH (09:48)
[2022-01-02] MEDS: dilTIAZem HCL 300 MG CAPCR PO SCH (09:48)
[2022-01-02] MEDS: ATENOLOL 50 MG TABLET PO SCH (09:48)
--- NOTE | 2022-01-02 10:31 | Gastrointestinal Consultation ---
Date of Consultation January 02, 2022 Assessment & Plan (1) Elevated LFTs: (2) Hemochromatosis: Plan - discussed case with Dr. Park who advised on plan. - It is possible that her overuse of Tylenol mixed with current infection/antibiotic use has contributed to the transaminitis. Her lfts from 09/2021 were unremarkable at that time so I suspect this rise is more due to her current issues. Can await the hepatitis panel that was ordered. - would also consider hematology evaluation given history of hemochromatosis given the ferritin is elevated. - continue to trend LFTs. Supervising Physician Co-Signing Physician Notes I personally evaluated the patient and agree with the findings as documented by Ace Mancuso, REINA Exam: Constitutional: WD/WN, vitals as above General: EOM intact bilaterally Neck: normal visual inspection Respiratory: normal respiratory effort, lungs clear to auscultation Cardiovascular: RRR, no murmur Gastrointestinal: abdomennormal to inspection, nondistended, soft, nontender, no hepatosplenomegaly Musculoskeletal: no cyanosis, head normal to inspection Skin: no rashes, warm and dry Neurologic: moves all extremities Psychiatric: A and O x3, euthymic affect History of Present Illness Reason for Consultation: transaminitis Requesting Physician: Dai Alva PA-C Attending Physician: Daniel Espinoza MD History of Present Illness Patient is a 76 year old female with history of hemochromatosis, DM, HTN, HLP, Asthma, and PAF that was admitted with pneumonia after 1 week of progressive cough with green colored sputum, fever, and dyspnea on exertion.GI consulted for transaminitis. She admits to me that this is the first time she has ever heard of her liver functions being up. LFTS from 09/2021 were normal. Prior to admission she tells me she was using "at least 6000mg of Tylenol a day". Last dose of Tylenol was 5 days ago. tylenol level during this admission was normal. iron level normal but ferritin high at 1286. she was previously seen by GI in [place] a year ago before she moved here due to rectal bleeding she had at the time and tells me she had colonoscopy and egd at that time that were unremarkable. Hx of hemocrhomatosis and follows with hematology. she tells me last check was in 08/2021 but did not need phlebotomy at that time. she denies any etoh use, jaundice, itching, nausea, vomiting, dysphagia, heartburn, abdominal pain, change in bowels, melena, or brbpr. Allergies Allergy/AdvReac Type Severity Reaction Status Date / Time Iodinated Contrast Media Allergy Severe Anaphylaxis Verified 12/30/21 23:36 butorphanol [From Stadol] AdvReac Severe HALLUCINATI Verified 12/30/21 23:36 ONS codeine AdvReac Intermediate Gastrointestinal Verified 12/30/21 23:36 Upset Home Medications Medication Instructions Recorded Confirmed Type albuterol sulfate 90 mcg/actuation 1 puff inhalation DIRECTED PRN 07/14/21 12/30/21 History aerosol inhaler Shortness Of Breath Or Wheezing atorvastatin 40 mg tablet 40 mg PO QAM 07/14/21 12/30/21 History diltiazem HCl 300 mg 300 mg PO DAILY 07/14/21 12/30/21 History capsule,extended release 24 hr fluoxetine 40 mg capsule 40 mg PO QAM 07/14/21 12/30/21 History gabapentin 300 mg capsule 300 mg PO DAILY PRN RLS 07/14/21 12/30/21 History metformin 500 mg tablet 1,000 mg PO BID 07/14/21 12/30/21 History trazodone 50 mg tablet 50 mg PO HS PRN Sleep 07/14/21 12/30/21 History losartan 25 mg tablet 25 mg PO QAM #30 tabs 07/18/21 12/30/21 Rx pantoprazole 40 mg tablet,delayed 40 mg PO DAILY #30 tabs 07/18/21 12/30/21 Rx release (Protonix) atenolol 50 mg tablet 50 mg PO QAM 12/30/21 12/30/21 History fluoxetine 20 mg capsule 20 mg PO QAM 12/30/21 12/30/21 History hydrochlorothiazide 25 mg tablet 25 mg PO QAM 12/30/21 12/30/21 History Patient History Medical History Anxiety Asthma DMII (diabetes mellitus, type 2) HLD (hyperlipidemia) HTN (hypertension) 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 Surgical History H/O: hysterectomy History of cholecystectomy Family History (Updated 12/31/21 @ 03:52 by Shae Graves DO) Other Diabetes Heart disease Social History Smoking Status: Never smoker Tobacco Type: Cigarettes Second Hand Exposure: No; Hx Alcohol Use: Yes Alcohol type: wine Hx Substance Use: No Preferred Language: Tristanian Communication Ability: Effective Insole Bottom Filler Required: No Beliefs That Will Affect Care: None Current Living Situation: Significant Other Feels Safe at Home: Yes Assistive Devices: None Review of Systems Review of Systems: All systems reviewed & are unremarkable except as noted in HPI & below Physical Exam Constitutional: WD/WN, vitals as above Eyes: + anicteric sclerae and PERRL Respiratory: normal respiratory effort, lungs clear to auscultation Cardiovascular: RRR, no murmur, no edema Gastrointestinal (Abdomen): normal bowel sounds, soft, nontender, no hepatosplenomegaly Skin: no rashes, warm and dry Psychiatric: Orientation: alert and oriented x 3 Affect: euthymic affect Results & Data ([facility]) Vital Signs (Past 12 Hours) Vital Signs Temp Pulse Resp BP BP Pulse Ox O2 Del Method 01/02/22 08:25 36.6 C 65 17 155/88 H 93 Room Air 01/01/22 23:11 37 C 76 20 146/78 H 92 Room Air PG Care Time/CCT Total # of Minutes Spent Total Time Spent with Patient: Total time spent is greater than 50% in coordination of care (as documented) at patient's floor/unit and/or counseling patient: Coding Level of Care Code 69745 Initial Inpt Care Lvl 3 Diagnoses Elevated LFTs R79.89 Hemochromatosis E83.119
[2022-01-02] MEDS: LOSARTAN POTASSIUM 25 MG TAB PO SCH (10:46)
[2022-01-02] MEDS: MAGNESIUM SULFATE / D5W 1 GM/100 ML BAG IV SCH ×2 (12:24→13:30)
[2022-01-02 15:27] LABS: HBSAG NON-REACTIVE (NON-REACTIVE); Hepatitis A Antibody IgM NON-REACTIVE (NON-REACTIVE); Hepatitis B Core Antibody IgM NON-REACTIVE (NON-REACTIVE)
--- NOTE | 2022-01-02 15:29 | Discharge Summary ---
Date of Service January 02, 2022 Admission HPI Per Admitting Provider Nakul Bui is a 76yo female with history of DM, HTN, HLP, Asthma and PAF presenting with 1 week of progressive cough with green colored sputum, fever, MEJIA. She has had poor appetite and decreased oral intake as well as nausea, non-bloody/non-bilious vomiting and watery diarrhea, weakness, fatigue and dizziness. She reports pain in her left lung with deep breathing. She was seen at Urgent Care this evening and subsequently sent to the ER for concern for left-sided PNA detected on auscultation. She also complaints of severe pain in left yazidism for which she has been taking Tylenol - possibly over 6gm/day (Reports taking 500mg tablets x 4 2-3 times daily) Last took Tylenol this AM. No sick contacts. No recent travel. She has received Covid Vaccination x 2 + Booster. In the ER patient febrile, HD stable, borderline hypoxic - supplemental O2 placed. Presently 93% on 4L Daughter - Kailyn Bui: [phone] Friend - Cassidy Ghosh: [phone] Principal Diagnosis 1. Pneumonia 2. Hypoxia d/t #1 (resolved) 3. Hypomagnesemia 4. Hemochromatosis 5. Elevated LFTs, likely d/t #4 Discharge Exam GENERAL: 76 yo Well-developed, well-nourished WF. NAD. LUNGS: Clear to auscultation bilaterally. CARDIOVASCULAR: Regular rate and rhythm. No M/G/R. No JVD. ABDOMEN: Soft, non-tender and non-distended. BS normoactive x 4 quad. EXTREMITIES: No edema. Non-tender. Peripheral pulses +2/4. NEUROLOGIC: A&O x3. PSYCHIATRIC: Cooperative. Appropriate mood and affect. SKIN: Warm, dry, intact. No rashes or lesions. Discharge Data Allergies Allergy/AdvReac Type Severity Reaction Status Date / Time Iodinated Contrast Media Allergy Severe Anaphylaxis Verified 12/30/21 23:36 butorphanol [From Stadol] AdvReac Severe HALLUCINATI Verified 12/30/21 23:36 ONS codeine AdvReac Intermediate Gastrointestinal Verified 12/30/21 23:36 Upset Consultations 12/30/21 23:19 ED Decision to Admit Stat 01/02/22 09:50 Consult Gastroenterology Routine Ordered Studies Chest X-Ray 12/30/21 19:36 XR chest 1V not portable CLINICAL HISTORY: A pod waiting room R/O COVID COMPARISON STUDY: Chest CT September 30, 2021. FINDINGS: No pneumothorax or pleural effusion is noted. Note is made of asymmetric left mid and lower lung airspace opacity with interstitial thickening. Right lung is clear. Cardiac size is normal. Mediastinal contours are normal. IMPRESSION: Asymmetric left mid and lower lung airspace opacity with interstitial thickening. This favors an infectious process. Radiographic follow- up to ensure resolution is recommended. ACT 112: Negative or not required by law. Electronically signed by: Catarino Hernandez M.D. 12/30/2021 9:13 PM Abdomen Ultrasound 01/01/22 12:50 ABDOMINAL ULTRASOUND, RIGHT UPPER QUADRANT HISTORY: Liver, biliary system. COMPARISON: CT of the abdomen and pelvis July 14, 2021. FINDINGS: No hepatic lesions are identified. Liver morphology is normal. Common bile duct measures 1 mm in caliber. This is likely due to previous cholecystectomy. Echogenic shadowing material within the intrahepatic bile ducts represents pneumobilia. Artifact from this gas makes evaluation somewhat difficult. Pancreatic body is normal. Head and tail are partially obscured. There is no right hydronephrosis. IMPRESSION: 1. Mild biliary ductal dilatation likely related to previous cholecystectomy. 2. Echogenic shadowing material within the intrahepatic bile ducts consistent with pneumobilia as shown on prior CT. Evaluation mildly compromised due to shadowing from this gas. 3. No hepatic lesions. ACT 112: Negative or not required by law. Electronically signed by: Catarino Hernandez M.D. 01/01/2022 2:27 PM Hospital Course (1) Pneumonia: 76yo female presenting with one week of progressive cough productive for green sputum, dyspnea as well as fever, weakness, nausea, vomiting and diarrhea. Febrile on arrival. O2 saturation is borderline - presently on supplemental O2 and doing well. CXR suggestive of left sided PNA. CURB-65=2 (moderate risk). No recent hospitalization. No risk for multi-drug resistant infections or Pseudomonas. Covid is NEGATIVE - Follow blood culture sent in ER - NGTD - Check sputum culture -> Pending, but Gram stain with normal jesus alberto. - Check Legionella urinary antigen given Pulmonary + GI + hyponatremia - NEGATIVE - Continue antibiotics for treatment of CAP - Ceftriaxone 1gm IV daily and Azithromycin - Supplemental O2 as needed - Tylenol/Toradol PRN - Now on room air, clinically improved, can d/c home with 2 more days of Zithromax 250mg (2) Elevated LFTs: Patient with elevation of RWX=156, BKX=439 and UQ=601. Tbili is normal at 0.7. - Acetaminophen level negative. - Repeat LFTs in AM -> Worse. - Liver u/s shows dilated biliary system consistent with prior cholecystectomy and pneumobilia consistent with sphincterectomy which goes back to CT scan from 07/2021. - Ferritin - 1207 --> 1286 - Acute hepatitis panel ordered - pending. - Pt with known hemochromatosis which is c/w elevated ferritin level + elevated LFTs - Continue holding statin as o/p and f/u with [facility]CP for phlebotomy. Repeat LFTs per pcp/Dr. Alves (3) Electrolyte abnormality: Hr=383. Possibly secondary to acute pulmonary infection with decreased oral intake - Returned to normal on 01/01 (with gentle hydration) (4) HTN (hypertension): Blood pressure lower today at 100/50. - Continue Atenolol 50mg po qAM - Continue Losartan 25mg po qAM - Stopped Diltiazem 300mg po daily on 01/01 for lower BP. - Monitor (5) Anxiety: Well controlled on medication -Continue Fluoxetine (6) DMII (diabetes mellitus, type 2): Chronic. Blood ywlvn=407. No HgbA1C on record -Check A1C with AM labs -ISS (7) PAF (paroxysmal atrial fibrillation): Chronic. Patient presently in NSR - Hold Cardizem; continue beta-darling - No anticoagulation (8) HLD (hyperlipidemia): Chronic. - Hold atorvastatin as above Restless Leg: -Continue Gabapentin Plan Medically and hemodynamically stable for discharge home. Patient will need to f/u with [facility]CP for phlebotomy - message left with CCP to contact patient with an appt. Recommend pcp f/u within 1 week of discharge. Continue holding statin until LFTs have normalized. Plan d/w Dr. Daniel Espinoza who is in agreement with above. Total Time Total Time Spent Total Time Spent (In Minutes): >30 minutes Discharge Plan Discharge Items Patient Disposition: Home - Self-Care Reason For Visit: PNEUMONIA Discharge Diagnosis: Pneumonia Elevated liver function tests and elevated ferritin level secondary to hemochromatosis Activity: Resume your previous activity Non-emergency contact: Primary Care Provider and Specialist Call non-emergency contact if: you have any medication questions and your symptoms worsen Follow-up/Referrals: Rashard Elaine MD [Primary Care Provider] - Yana Alves MD [Physician] - (for hemochromatosis and phlebotomy ) Diet: Carb Consistent or DM2 Addtl Attending Provider Instructions: You were hospitalized due to pneumonia. You were started on antibiotics for your pneumonia and provided breathing treatments and supplemental oxygen. You have responded well to treatment and now are able to be discharged on oral antibiotics. You are being discharged on Zithromax 250mg daily for two more days. Your next dose is due on . You were noted to have elevated liver function tests and an elevated ferritin level. This is consistent with your diagnosis of hemochromatosis. We have contacted the [facility] to schedule a follow up appointment with Dr. Alves as you may need to have phlebotomy to correct your ferritin level. Because of your elevated liver function tests, I would recommend holding your Lipitor for now until your liver function tests normalize. We will defer to CCP and/or primary care to obtain follow up labs to recheck your liver function tests. It is recommended that you follow up with your primary care provider within 1 week of discharge. If you have any questions following your discharge, you may call the nonemergency number listed on your discharge paperwork. In the event of a medical emergency, call 911. Pending Studies at Discharge: No Stand-Alone Forms: My [facility] [employer], Smoking Cessation Medications and DC Order Prescriptions: New azithromycin [Zithromax] 250 mg tablet 250 mg PO DAILY 2 Days Qty: 2 0RF Continued hydrochlorothiazide 25 mg tablet 25 mg PO QAM fluoxetine 20 mg capsule 20 mg PO QAM atenolol 50 mg tablet 50 mg PO QAM fluoxetine 40 mg capsule 40 mg PO QAM metformin 500 mg tablet 1,000 mg PO BID trazodone 50 mg tablet 50 mg PO HS PRN (Reason: Sleep) diltiazem HCl 300 mg capsule,extended release 24hr 300 mg PO DAILY gabapentin 300 mg capsule 300 mg PO DAILY PRN (Reason: RLS) albuterol sulfate 90 mcg/actuation HFA aerosol inhaler 1 puff inhalation DIRECTED PRN (Reason: Shortness Of Breath Or Wheezing) losartan 25 mg Tablet 25 mg PO QAM Qty: 30 0RF pantoprazole [Protonix] 40 mg tablet,delayed release (DR/EC) 40 mg PO DAILY Qty: 30 0RF Discontinued atorvastatin 40 mg tablet 40 mg PO QAM Discharge Orders: Discharge Order (Routine); Ordered 01/02/22 Ordered By: Dai Soto/Other Patient Handouts: Managing Type 2 Diabetes Admission Data Admit Date/Time: 12/31/21 00:21 Attending Provider: Daniel Espinoza Admit Provider: Shae Graves Primary Care Provider: Rashard Elaine Other Providers: Shae Graves ; K[place]hal Park Other Interventions: Discharge Summary Assessment (RN) Last Done: 01/02/22 15:39 Supervising Physician Co-Signing Physician Notes I supervised Dai Alva PA-C on the care of this patient. I interviewed and examined the patient independently of her yesterday, within the last 24h of discharge. The plan is as written in her note except for any following changes/exceptions: None 76yo F w/ hx of hemochromatosis who presents with pneumonia. Started on CAP abx and improved substantially. LFTs jigar somewhat, but liver u/s was stable. Given hx of hemochromatosis and ferritin of 1200, encouraged patient to follow up with CCP for phlebotomy. Coding Level of Care Code D/C DAY MANAGEMENT >30 MINS Diagnoses Pneumonia J18.9 Laterality: left Lung location: lower lobe of lung Pneumonia type: due to unspecified organism Elevated LFTs R79.89 Electrolyte abnormality E87.8 HTN (hypertension) I10 Anxiety F41.9 DMII (diabetes mellitus, type 2) E11.9 PAF (paroxysmal atrial fibrillation) I48.0 HLD (hyperlipidemia) E78.5
== END 2022-01-02 16:22 | disposition home or self-care (01) | DRG 194 ==
LOC: ED 19:07 → EDINP 12-31 00:21 → SUATTDRO 12-31 00:21 → 2N 12-31 05:20

== ENCOUNTER 2025-03-14 07:34 | Observation (INO) ==
[2025-03-14 08:09] LABS: Hematocrit (blood only) 36.2 % (37.0-47.0); Hemoglobin 12.2 g/dl (12.0-16.0); Immature Granulocytes # (auto) 0.06 K/uL (0.01-0.20); Immature Granulocytes % (auto) 0.5 %; Mean Corpuscular Hemoglobin 29.9 pg (25.0-34.0); Mean Corpuscular Volume 88.7 fL (80.0-100.0); Platelet Count 343 K/uL (130-400); RDW Standard Deviation 40.2 fL (36.4-46.3); Red Blood Count 4.08 M/uL (4.20-5.40); White Blood Count 12.00 K/ul (4.8-10.8)
[2025-03-14] MEDS: MoRPHine SULFATE 4 MG/ML 1 ML CARP\\VIAL IV STA (08:09)
[2025-03-14] MEDS: ONDANSETRON INJ 2 MG/ML 2 ML VIAL IV STA (08:09)
--- NOTE | 2025-03-14 08:11 | Emergency Department Note ---
Impression & Plan Chest pain, Jaw pain, Acute hypokalemia, Hypomagnesemia ED Provider Note HISTORY OF PRESENT ILLNESS: Patient is a 79-year-old female presenting with chest pain and jaw pain. Patient reports that she was awoken from sleep this morning with jaw pain. States that it hurt on both sides of her jaw but is now hurting on the left side. She states that the pain seems to started her TMJ on the left and radiate down her neck and into her shoulders. She states that she has also had some left-sided chest pain this morning and pain in her left arm. She describes it as a squeezing and pressure sensation in her jaw and chest. Denies any nausea or vomiting or lightheadedness with the chest pain. She has never had pain like this before. Denies any DVT or PE history. Denies any history of cardiac stents. She reports she took 2 baby aspirin prior to arrival. She denies any difficulties with swallowing. Patient reports that she was diagnosed with viral laryngitis recently. She denies any numbness or tingling or weakness in her extremities. She does report she had a significant headache yesterday that has improved. ROS: as above PHYSICAL EXAM: Constitutional: Patient appears in no acute distress. HENT: Head: Normocephalic and atraumatic. Eyes: EOMI, PERRL Mouth/Throat: Mucous membranes moist. Uvula midline. No notable hypertrophy in the posterior oropharynx or obvious exudates. Patient is able to fully open and close the jaw. No malocclusion. No reproducible tenderness to palpation over the TMJ. She is tender just posterior to the left mandibular angle. Neck: Trachea midline. Neck supple. Cardiovascular: RRR, No murmurs, rubs or gallops. Intact distal pulses. Pulmonary/Chest: No respiratory distress. Breath sounds clear and equal bilaterally. No wheezes or rales. Abdominal: Abdomen soft, no tenderness, rebound or guarding. Musculoskeletal: No edema, tenderness or deformity noted. Skin: Warm and dry. No rash, erythema, pallor or cyanosis Psychiatric: Appropriate mood and affect for situation. Neurological: Alert and keenly responsive. CN II-XII grossly intact, moving all extremities equally and fully. MDM: - Vitals signs showed hypertension - History obtained via patient. History as above. - Chronic conditions affecting care: HTN; HLD; DM-2 - Differential diagnoses include, but are not limited to: Acute coronary syndrome; pulmonary embolism; dissection; tension pneumothorax; esophageal rupture; pneumonia - Order placed for continuous cardiac monitoring. At this time, monitor showed rate of 59 bpm with normal sinus rhythm, per my interpretation. - External medical records reviewed. Nephrology visit note dated 01/18/2025 was reviewed. Patient follows in their clinic for her CKD. Baseline creatinine is around 1.2. - EKG image interpreted by myself showed normal sinus rhythm. Rate 69 bpm. QT 402. No acute ischemic changes. - Laboratory workup interpreted by myself showed slight leukocytosis (WBC 12.00) with neutrophil predominance; normal PT/INR; hypokalemia (K 3.3); hypomagnesemia (Mg 1.6); baseline CKD; normal troponin; normal AST/ALT; normal lipase - CXR image viewed interpreted by myself as needed for pneumonia, per my interpretation. - CT head wo contrast for acute intracranial pathology. - Repeat troponin within normal limits - Patient initially given 4 mg IV morphine and 4 mg IV Zofran. She was given 10 mEq of IV potassium and 1 g of IV Tylenol for electrolyte replacement. - On reassessment, patient still complaining of pain. Given 1 g IV Tylenol, 500 cc of saline and 50 mcg IV fentanyl. On reassessment, she reports she still having jaw pain but her chest pain has improved slightly. - HEART score 5 (History +1 moderately suspicious; EKG +0; Age +2; Risk factors +2; Initial troponin +0), amounting to a moderate score. - Discussion was had with case therapist about patient's case and need for admission - Hospitalist consulted for admission - Patient admitted to [facility] service for further evaluation and management. ASSESSMENT AND PLAN: Diagnosis: Chest pain; jaw pain; acute hypokalemia; hypomagnesemia Plan: Admit] Past Med/Surg History Problem List (Updated 03/14/25 @ 12:35 by Adri Malin MD) Hypomagnesemia (Acute) Acute hypokalemia (Acute) Jaw pain (Acute) Chest pain (Acute) URI with cough and congestion (Acute) Upper respiratory infection, viral (Acute) Atypical chest pain Dyspnea on exertion Paroxysmal SVT (supraventricular tachycardia) Encounter for pre-operative examination Plantar fasciitis, right Greater trochanteric bursitis of right hip Hemochromatosis Keratosis HTN (hypertension) Anxiety DMII (diabetes mellitus, type 2) Asthma uses albuterol daily every am HLD (hyperlipidemia) Medical History HLD (hyperlipidemia) Diabetes HTN (hypertension) Anxiety Dyspnea Hx of chest pain Asthma Paroxysmal SVT (supraventricular tachycardia) Chronic kidney disease, stage 3b GERD (gastroesophageal reflux disease) Pulmonary nodule Depression History of esophageal dilatation Sleep apnea History of COVID-19 Hemochromatosis Surgical History History of abdominoplasty History of bilateral tubal ligation History of removal of cyst History of shoulder surgery History of colonoscopy History of ERCP History of total right hip replacement History of total left hip replacement History of tooth extraction History of tonsillectomy History of bilateral cataract extraction Hx of LASIK History of esophagogastroduodenoscopy (EGD) H/O: hysterectomy History of cholecystectomy Family History Other Diabetes Heart disease No family history of adverse response to anesthesia Social History Smoking Status: Never smoker Tobacco Type: Cigarettes Second Hand Exposure: No; Do You Dip or Chew Tobacco: No; Hx Alcohol Use: Yes Alcohol type: wine Alcohol Intake Frequency: 2-3 x/Week Hx Substance Use: No Preferred Language: Greenlandic Communication Ability: Effective Hearing Ability: Normal Anthropology Professor Required: No Beliefs That Will Affect Care: None marital status: Current Living Situation: Significant Other Current Living Situation Comment: 3 dogs, 1 cat current occupational status: retired How many Children do You have: 2 Feels Safe at Home: Yes Childhood Exposure to Second-Hand Smoke: Yes Diet: regular caffeine: Yes (1 cup of coffee every morning. Uses zero sugar when drinking soda. ) Dental Care, Regularly: No Physical Activity Frequency: Does not Exercise Seatbelt Use: always Sunscreen Use: Yes Do you think of yourself as: straight/heterosexual Gender Identity: Female Assistive Devices: CPAP and Glasses Allergies Allergies Allergy/AdvReac Type Severity Reaction Status Date / Time Iodinated Contrast Media Allergy Severe Anaphylaxis Verified 01/18/25 10:15 butorphanol [From Stadol] AdvReac Severe HALLUCINATI Verified 01/18/25 10:15 ONS codeine AdvReac Intermediate Gastrointestinal Verified 01/18/25 10:15 Upset Home Meds Home Medications Medication Instructions Recorded Confirmed albuterol sulfate 90 mcg/actuation 1 puff inhalation DIRECTED PRN 07/14/21 03/14/25 aerosol inhaler Shortness Of Breath Or Wheezing fluoxetine 40 mg capsule 40 mg PO QAM 07/14/21 03/14/25 gabapentin 300 mg capsule 300 mg PO DAILY PRN RLS 07/14/21 03/14/25 metformin 500 mg tablet 1,000 mg PO BID 07/14/21 03/14/25 trazodone 50 mg tablet 50 mg PO HS PRN Sleep 07/14/21 03/14/25 fluoxetine 20 mg capsule 20 mg PO QAM 12/30/21 03/14/25 aspirin 81 mg capsule 81 mg PO QAM 06/10/23 03/14/25 atorvastatin 40 mg tablet 40 mg PO .Q OTHER DAY 06/10/23 03/14/25 diltiazem HCl 180 mg 180 mg PO QAM 06/10/23 03/14/25 tablet,extended release 24 hr metoprolol succinate 50 mg 100 mg PO QAM 06/10/23 03/14/25 tablet,extended release 24 hr multivitamin 1 tab PO QAM 06/10/23 03/14/25 pantoprazole 40 mg tablet,delayed 40 mg PO QAM 06/10/23 03/14/25 release (Protonix) bupropion HCl 100 mg tablet,12 hr 100 mg PO QAM 03/14/24 03/14/25 sustained-release Previous Rx's Medication Instructions Recorded losartan 25 mg tablet 25 mg PO QAM #30 tabs 07/18/21 glycerin (adult) 1 supp ND BID PRN constipation #12 01/28/24 ea ondansetron 4 mg disintegrating 4 - 8 mg (1 - 2 x 4 mg) PO Q6H PRN 01/28/24 tablet nausea and vomiting #14 tabs sennosides 8.6 mg-docusate sodium 1 - 2 tab-cap (1 - 2 x 8.6-50 mg) 01/28/24 50 mg tablet (Senokot-S) PO BID PRN constipation #60 tabs azithromycin 250 mg tablet 250 mg PO DAILY 4 days #4 tabs 03/12/25 prednisone 50 mg tablet 50 mg PO DAILY 5 days #5 tabs 03/12/25 Results & Data (ED) Vital Signs Vital Signs - 24 hr 03/14/25 07:34 03/14/25 07:41 03/14/25 07:41 Temperature 36.7 C Temperature Source Oral Pulse Rate 73 Pulse Rate [Apical] Pulse Rate from SpO2 Sensor Pulse Rhythm [Apical] Respiratory Rate 18 Respiratory Effort / Characteristics Non-Labored Spontaneous Respiratory Depth Normal Respiratory Pattern Blood Pressure 202/107 H Blood Pressure [Right Arm] Blood Pressure Mean 138 Blood Pressure Mean [Right Arm] Blood Pressure Position [Right Arm] Pulse Oximetry 99 98 Oxygen Delivery Method Room Air Room Air Room Air Sepsis Recent Fever Within 48 Hours No Sepsis New/Unexplained Change in Mental Status No Sepsis Action Taken by Nursing No Action Required 03/14/25 07:43 03/14/25 07:51 03/14/25 08:21 Temperature Temperature Source Pulse Rate 70 69 66 Pulse Rate [Apical] Pulse Rate from SpO2 Sensor 68 65 Pulse Rhythm [Apical] Respiratory Rate 17 14 Respiratory Effort / Characteristics Respiratory Depth Respiratory Pattern Blood Pressure Blood Pressure [Right Arm] Blood Pressure Mean Blood Pressure Mean [Right Arm] Blood Pressure Position [Right Arm] Pulse Oximetry 99 Oxygen Delivery Method Sepsis Recent Fever Within 48 Hours Sepsis New/Unexplained Change in Mental Status Sepsis Action Taken by Nursing 03/14/25 08:30 03/14/25 08:42 03/14/25 08:51 Temperature Temperature Source Pulse Rate 65 65 66 Pulse Rate [Apical] Pulse Rate from SpO2 Sensor 66 65 65 Pulse Rhythm [Apical] Respiratory Rate 22 13 17 Respiratory Effort / Characteristics Respiratory Depth Respiratory Pattern Blood Pressure Blood Pressure [Right Arm] Blood Pressure Mean Blood Pressure Mean [Right Arm] Blood Pressure Position [Right Arm] Pulse Oximetry 93 93 92 Oxygen Delivery Method Sepsis Recent Fever Within 48 Hours Sepsis New/Unexplained Change in Mental Status Sepsis Action Taken by Nursing 03/14/25 09:00 03/14/25 09:00 03/14/25 09:00 Temperature Temperature Source Pulse Rate 62 Pulse Rate [Apical] Pulse Rate from SpO2 Sensor 62 Pulse Rhythm [Apical] Respiratory Rate 14 Respiratory Effort / Characteristics Respiratory Depth Respiratory Pattern Blood Pressure 185/87 H 185/87 H Blood Pressure [Right Arm] Blood Pressure Mean 136 136 Blood Pressure Mean [Right Arm] Blood Pressure Position [Right Arm] Pulse Oximetry 97 Oxygen Delivery Method Sepsis Recent Fever Within 48 Hours Sepsis New/Unexplained Change in Mental Status Sepsis Action Taken by Nursing 03/14/25 09:00 03/14/25 09:00 03/14/25 09:00 Temperature Temperature Source Pulse Rate Pulse Rate [Apical] Pulse Rate from SpO2 Sensor Pulse Rhythm [Apical] Respiratory Rate Respiratory Effort / Characteristics Respiratory Depth Respiratory Pattern Blood Pressure 185/87 H 185/87 H 185/87 H Blood Pressure [Right Arm] Blood Pressure Mean 136 136 136 Blood Pressure Mean [Right Arm] Blood Pressure Position [Right Arm] Pulse Oximetry Oxygen Delivery Method Sepsis Recent Fever Within 48 Hours Sepsis New/Unexplained Change in Mental Status Sepsis Action Taken by Nursing 03/14/25 09:00 03/14/25 09:00 03/14/25 09:00 Temperature Temperature Source Pulse Rate Pulse Rate [Apical] Pulse Rate from SpO2 Sensor Pulse Rhythm [Apical] Respiratory Rate Respiratory Effort / Characteristics Respiratory Depth Respiratory Pattern Blood Pressure 185/87 H 185/87 H 185/87 H Blood Pressure [Right Arm] Blood Pressure Mean 136 136 136 Blood Pressure Mean [Right Arm] Blood Pressure Position [Right Arm] Pulse Oximetry Oxygen Delivery Method Sepsis Recent Fever Within 48 Hours Sepsis New/Unexplained Change in Mental Status Sepsis Action Taken by Nursing 03/14/25 09:00 03/14/25 09:12 03/14/25 09:21 Temperature Temperature Source Pulse Rate 64 Pulse Rate [Apical] Pulse Rate from SpO2 Sensor 65 Pulse Rhythm [Apical] Respiratory Rate 13 Respiratory Effort / Characteristics Non-Labored Spontaneous Respiratory Depth Normal Respiratory Pattern Regular Blood Pressure 185/87 H Blood Pressure [Right Arm] Blood Pressure Mean 136 Blood Pressure Mean [Right Arm] Blood Pressure Position [Right Arm] Pulse Oximetry 93 Oxygen Delivery Method Room Air Sepsis Recent Fever Within 48 Hours Sepsis New/Unexplained Change in Mental Status Sepsis Action Taken by Nursing 03/14/25 09:21 03/14/25 09:30 03/14/25 09:42 Temperature Temperature Source Pulse Rate 61 63 70 Pulse Rate [Apical] Pulse Rate from SpO2 Sensor 62 63 64 Pulse Rhythm [Apical] Respiratory Rate 13 16 16 Respiratory Effort / Characteristics Respiratory Depth Respiratory Pattern Blood Pressure Blood Pressure [Right Arm] Blood Pressure Mean Blood Pressure Mean [Right Arm] Blood Pressure Position [Right Arm] Pulse Oximetry 95 94 92 Oxygen Delivery Method Sepsis Recent Fever Within 48 Hours Sepsis New/Unexplained Change in Mental Status Sepsis Action Taken by Nursing 03/14/25 09:59 03/14/25 10:00 03/14/25 10:00 Temperature Temperature Source Pulse Rate Pulse Rate [Apical] Pulse Rate from SpO2 Sensor Pulse Rhythm [Apical] Respiratory Rate Respiratory Effort / Characteristics Respiratory Depth Respiratory Pattern Blood Pressure 194/85 H 190/91 H 190/91 H Blood Pressure [Right Arm] Blood Pressure Mean 130 112 112 Blood Pressure Mean [Right Arm] Blood Pressure Position [Right Arm] Pulse Oximetry Oxygen Delivery Method Sepsis Recent Fever Within 48 Hours Sepsis New/Unexplained Change in Mental Status Sepsis Action Taken by Nursing 03/14/25 10:00 03/14/25 10:00 03/14/25 10:00 Temperature Temperature Source Pulse Rate Pulse Rate [Apical] Pulse Rate from SpO2 Sensor Pulse Rhythm [Apical] Respiratory Rate Respiratory Effort / Characteristics Respiratory Depth Respiratory Pattern Blood Pressure 190/91 H 190/91 H 190/91 H Blood Pressure [Right Arm] Blood Pressure Mean 112 112 112 Blood Pressure Mean [Right Arm] Blood Pressure Position [Right Arm] Pulse Oximetry Oxygen Delivery Method Sepsis Recent Fever Within 48 Hours Sepsis New/Unexplained Change in Mental Status Sepsis Action Taken by Nursing 03/14/25 10:00 03/14/25 10:12 03/14/25 10:21 Temperature Temperature Source Pulse Rate 60 63 58 L Pulse Rate [Apical] Pulse Rate from SpO2 Sensor 59 L 63 57 L Pulse Rhythm [Apical] Respiratory Rate 14 16 17 Respiratory Effort / Characteristics Respiratory Depth Respiratory Pattern Blood Pressure Blood Pressure [Right Arm] Blood Pressure Mean Blood Pressure Mean [Right Arm] Blood Pressure Position [Right Arm] Pulse Oximetry 96 95 93 Oxygen Delivery Method Sepsis Recent Fever Within 48 Hours Sepsis New/Unexplained Change in Mental Status Sepsis Action Taken by Nursing 03/14/25 10:30 03/14/25 10:42 03/14/25 10:51 Temperature Temperature Source Pulse Rate 60 56 L 57 L Pulse Rate [Apical] Pulse Rate from SpO2 Sensor 62 56 L 57 L Pulse Rhythm [Apical] Respiratory Rate 17 16 16 Respiratory Effort / Characteristics Respiratory Depth Respiratory Pattern Blood Pressure Blood Pressure [Right Arm] Blood Pressure Mean Blood Pressure Mean [Right Arm] Blood Pressure Position [Right Arm] Pulse Oximetry 93 96 94 Oxygen Delivery Method Sepsis Recent Fever Within 48 Hours Sepsis New/Unexplained Change in Mental Status Sepsis Action Taken by Nursing 03/14/25 11:00 03/14/25 12:00 03/14/25 12:22 Temperature Temperature Source Pulse Rate 58 L Pulse Rate [Apical] 57 L 58 L Pulse Rate from SpO2 Sensor Pulse Rhythm [Apical] Regular Respiratory Rate 20 16 Respiratory Effort / Characteristics Non-Labored Spontaneous Respiratory Depth Normal Respiratory Pattern Regular Blood Pressure Blood Pressure [Right Arm] 176/89 H 169/87 H Blood Pressure Mean Blood Pressure Mean [Right Arm] 118 114 Blood Pressure Position [Right Arm] Sitting Pulse Oximetry 93 94 Oxygen Delivery Method Room Air Room Air Sepsis Recent Fever Within 48 Hours Sepsis New/Unexplained Change in Mental Status Sepsis Action Taken by Nursing Laboratory Data 03/14/25 07:47 03/14/25 07:47 Lab Results 03/14/25 03/14/25 Range/Units 07:47 10:15 WBC 12.00 H (4.8-10.8) K/ul RBC 4.08 L (4.20-5.40) M/uL Hgb 12.2 (12.0-16.0) g/dl Hct 36.2 L (37.0-47.0) % MCV 88.7 (80.0-100.0) fL MCH 29.9 (25.0-34.0) pg MCHC 33.7 (32.0-36.0) g/dL RDW Std Deviation 40.2 (36.4-46.3) fL RDW Coeff of Tayo 12.3 (11.5-14.5) % Plt Count 343 (130-400) K/uL MPV 10.5 (9.4-12.4) fL Immature Gran % (Auto) 0.5 % Neut % (Auto) 71.1 % Lymph % (Auto) 17.3 % Cook % (Auto) 10.7 % Eos % (Auto) 0.3 % Baso % (Auto) 0.1 % Neut # (Auto) 8.54 H (1.40-6.50) K/uL Lymph # (Auto) 2.08 (1.20-3.40) K/uL Cook # (Auto) 1.28 H (0.11-0.59) K/uL Eos # (Auto) 0.03 (0.00-0.50) K/uL Baso # (Auto) 0.01 (0.00-0.20) K/uL Immature Gran # (Auto) 0.06 (0.01-0.20) K/uL PT 10.1 (9.0-12.0) Seconds INR 1.0 (0.9-1.1) Sodium 140 (136-145) mmol/L Potassium 3.3 L (3.5-5.1) mmol/L Chloride 105 (98-107) mmol/L Carbon Dioxide 26 (21-32) mmol/L Anion Gap 9 (3-11) BUN 28 H (6-23) mg/dl Creatinine 1.28 H (0.6-1.2) mg/dl Est Cr Clr Drug Dosing 36.2 ml/min eGFR 43.15 BUN/Creatinine Ratio 21.9 H (10-20) Glucose 99 (70-99(Fasting)) mg/dl Calcium 9.5 (8.6-10.3) mg/dl Magnesium 1.6 L (1.7-2.4) mg/dl Total Bilirubin 0.4 (0.2-1.0) mg/dl AST 18 (13-39) U/L ALT 18 (7-52) U/L Alkaline Phosphatase 85 (34-104) U/L Troponin I High Sens 5.0 6.1 (0-14) pg/ml Total Protein 7.5 (6.0-8.3) gm/dl Albumin 4.3 (3.4-5.0) gm/dl Globulin 3.2 (2.5-4.0) gm/dl Albumin/Globulin Ratio 1.3 (0.9-2) Lipase 27 (11-82) U/L Administered Medications Discontinued Medications Fentanyl Citrate (Fentanyl Citrate Pf 100 Mcg/2 Ml Vial) 50 mcg IV NOW STA Stop: 03/14/25 11:15 Last Admin: 03/14/25 11:38 Dose: 50 mcg Documented By: QGV Magnesium Sulfate/Dextrose (Magnesium Sulfate / D5w) 1 gm in 100 mls @ 100 mls/hr IV NOW STA Stop: 03/14/25 09:31 Last Infusion: 03/14/25 10:48 Dose: Infused Documented By: sak Admin: 03/14/25 08:55 Dose: 100 mls/hr Documented By: sak Potassium Chloride (K Francisco / Wtr) 10 meq in 100 mls @ 100 mls/hr IV ONE ONE Stop: 03/14/25 09:31 Last Infusion: 03/14/25 10:48 Dose: Infused Documented By: savannah Infusion: 03/14/25 10:48 Dose: Infused Documented By: savannah Admin: 03/14/25 08:58 Dose: 100 mls/hr Documented By: savannah Sodium Chloride (Nss) 500 mls @ 999 mls/hr IV .Q31M ONE Stop: 03/14/25 09:02 Last Infusion: 03/14/25 10:49 Dose: Infused Documented By: savannah Admin: 03/14/25 08:51 Dose: 999 mls/hr Documented By: savannah Acetaminophen (Ofirmev) 1,000 mg in 100 mls @ 400 mls/hr IV NOW STA Stop: 03/14/25 08:47 Last Infusion: 03/14/25 10:48 Dose: Infused Documented By: savannah Admin: 03/14/25 08:49 Dose: 400 mls/hr Documented By: savannah Morphine Sulfate (Morphine Sulfate 4 Mg/Ml 1 Ml Carp\Vial) 4 mg IV NOW STA Stop: 03/14/25 08:04 Last Admin: 03/14/25 08:09 Dose: 4 mg Documented By: savannah Ondansetron HCl (Ondansetron Inj 2 Mg/Ml 2 Ml Vial) 4 mg IV NOW STA Stop: 03/14/25 08:04 Last Admin: 03/14/25 08:09 Dose: 4 mg Documented By: savannah Imaging Data Radiologist's Impression: Chest X-Ray 03/14/25 07:41 EXAM: XR chest 1V portable CLINICAL HISTORY: Chest pain, nonspecific TECHNIQUE: An X-ray image of the chest was obtained in AP projection. COMPARISON: Comparison is made with the X-ray dated 03/12/2025. FINDINGS: Pulmonary Parenchyma: The lungs are clear bilaterally. There is no evidence of consolidation, collapse, or focal opacities. No pulmonary nodules are identified. There is no evidence of pleural effusion or pleural thickening. Heart and Mediastinum: The heart size and shape are normal. There is no mediastinal widening or mass. No hilar or mediastinal lymphadenopathy is seen. Bony Thorax: The bony thorax appears intact, without fractures or deformities. Soft Tissues: The soft tissues overlying the chest wall are unremarkable. IMPRESSION: No acute cardiopulmonary abnormalities are identified. Findings are stable. Electronically signed by José Gonzalez 03-14-2025 08:[address] 03/14/25 09:17 CT SCAN OF THE BRAIN WITHOUT IV CONTRAST CLINICAL HISTORY: Headache. COMPARISON STUDY: CT of the brain dated 09/23/2021 TECHNIQUE: Unenhanced CT scan of the brain is performed from the vertex to the skull base. Images are reviewed in the axial, sagittal, coronal planes. A dose lowering technique was utilized adhering to the principles of ALARA. CT DOSE: 625.8 mGy.cm FINDINGS: Brain parenchyma: There is age-related involutional change noting moderate to advanced subcortical and periventricular microangiopathic disease. There is no hemorrhage, mass effect, or evidence of acute territorial ischemia by CT criteria. Petersen-white matter differentiation is preserved. No extra-axial fluid collection is seen. Ventricles, sulci, cisterns: Prominent secondary to involutional change. Intracranial vasculature: There is atherosclerotic calcification of the cavernous carotid and vertebral arteries. Calvarium: Unremarkable. Sinuses and mastoids: There is near complete opacification of the right maxillary sinus. Thickening and sclerosis of the sinus wall indicates chronicity. There is trace mucosal thickening in the left maxillary antrum and the anterior right ethmoid sinuses. There is a right mastoid effusion. The left mastoid air cells are well pneumatized. Orbits: The bony orbits are grossly intact. There are bilateral ocular lens implants. IMPRESSION: There is no hemorrhage, mass effect, or evidence of acute territorial ischemia by CT criteria. ACT 112: Negative or not required by law. Electronically signed by: Robert Izquierdo M.D. 03/14/2025 10:01 AM Discharge Plan Visit Data Chief Complaint: Cardiac Assessment Stated Complaint: JAW AND LT ARM PAIN ED Provider: Adri Malin Discharge Problem: Chest pain, Jaw pain, Acute hypokalemia, Hypomagnesemia Patient Disposition: Admitted As Inpatient Condition: Fair Forms Stand Alone Forms: My [facility] [employer] Prescriptions Prescriptions: No Action fluoxetine 20 mg capsule 20 mg PO QAM fluoxetine 40 mg capsule 40 mg PO QAM metformin 500 mg tablet 1,000 mg PO BID trazodone 50 mg tablet 50 mg PO HS PRN (Reason: Sleep) gabapentin 300 mg capsule 300 mg PO DAILY PRN (Reason: RLS) albuterol sulfate 90 mcg/actuation HFA aerosol inhaler 1 puff inhalation DIRECTED PRN (Reason: Shortness Of Breath Or Wheezing) losartan 25 mg Tablet 25 mg PO QAM Qty: 30 0RF sennosides-docusate sodium [Senokot-S] 8.6-50 mg tablet 1 - 2 tab-cap PO BID PRN (Reason: constipation) Qty: 60 2RF glycerin (adult) Suppository 1 supp ND BID PRN (Reason: constipation) Qty: 12 1RF ondansetron 4 mg tablet,disintegrating 4 - 8 mg PO Q6H PRN (Reason: nausea and vomiting) Qty: 14 0RF prednisone 50 mg tablet 50 mg PO DAILY 5 Days Qty: 5 0RF azithromycin 250 mg tablet 250 mg PO DAILY 4 Days Qty: 4 0RF metoprolol succinate 50 mg Tablet Extended Release 24 Hr 100 mg PO QAM diltiazem HCl 180 mg Tablet Extended Release 24 Hr 180 mg PO QAM pantoprazole [Protonix] 40 mg tablet,delayed release (DR/EC) 40 mg PO QAM multivitamin Tablet 1 tab PO QAM atorvastatin 40 mg Tablet 40 mg PO .Q OTHER DAY aspirin 81 mg Capsule 81 mg PO QAM bupropion HCl 100 mg tablet sustained-release 12 hr 100 mg PO QAM Referrals Referrals: Caitlin Aviles PA-C [Primary Care Provider] -
[2025-03-14 08:29] LABS: Alanine Aminotransferase 18.0 U/L (7-52); Albumin Globulin Ratio 1.3 (0.9-2); Albumin Level 4.3 gm/dl (3.4-5.0); Alkaline Phosphatase 85.0 U/L (34-104); Anion Gap 9.0 (3-11); Bilirubin,Total 0.4 mg/dl (0.2-1.0); Blood Urea Nitrogen 28.0 mg/dl (6-23); Calcium 9.5 mg/dl (8.6-10.3); Carbon Dioxide 26.0 mmol/L (21-32); Chloride 105.0 mmol/L (98-107); Creatinine Clr Calc Pharmacy 36.2 ml/min; Globulin 3.2 gm/dl (2.5-4.0); Glucose 99.0 mg/dl (70-99(Fasting)); Lipase 27.0 U/L (11-82); Magnesium 1.6 mg/dl (1.7-2.4); Potassium 3.3 mmol/L (3.5-5.1); Sodium 140.0 mmol/L (136-145); Total Protein 7.5 gm/dl (6.0-8.3)
[2025-03-14 08:34] LABS: INR 1.0 (0.9-1.1); Prothrombin Time 10.1 Seconds (9.0-12.0)
--- NOTE | 2025-03-14 08:46 | XRay Report ---
EXAM: XR chest 1V portable CLINICAL HISTORY: Chest pain, nonspecific TECHNIQUE: An X-ray image of the chest was obtained in AP projection. COMPARISON: Comparison is made with the X-ray dated 03/12/2025. FINDINGS: Pulmonary Parenchyma: The lungs are clear bilaterally. There is no evidence of consolidation, collapse, or focal opacities. No pulmonary nodules are identified. There is no evidence of pleural effusion or pleural thickening. Heart and Mediastinum: The heart size and shape are normal. There is no mediastinal widening or mass. No hilar or mediastinal lymphadenopathy is seen. Bony Thorax: The bony thorax appears intact, without fractures or deformities. Soft Tissues: The soft tissues overlying the chest wall are unremarkable. IMPRESSION: No acute cardiopulmonary abnormalities are identified. Findings are stable. Electronically signed by José Gonzalez 03-14-2025 08:45 AM
[2025-03-14] MEDS: ACETAMINOPHEN 1,000 MG/100 ML VIAL IV STA (08:49)
[2025-03-14] MEDS: SODIUM CHLORIDE 0.9% 500 ML IV ONE (08:51)
[2025-03-14] MEDS: MAGNESIUM SULFATE / D5W 1 GM/100 ML BAG IV STA (08:55)
[2025-03-14] MEDS: POTASSIUM CHLORIDE / WTR 10 MEQ/100 ML PLCT IV ONE (08:58)
--- NOTE | 2025-03-14 10:02 | CT Scan Report ---
CT SCAN OF THE BRAIN WITHOUT IV CONTRAST CLINICAL HISTORY: Headache. COMPARISON STUDY: CT of the brain dated 09/23/2021 TECHNIQUE: Unenhanced CT scan of the brain is performed from the vertex to the skull base. Images are reviewed in the axial, sagittal, coronal planes. A dose lowering technique was utilized adhering to the principles of ALARA. CT DOSE: 625.8 mGy.cm FINDINGS: Brain parenchyma: There is age-related involutional change noting moderate to advanced subcortical an d periventricular microangiopathic disease. There is no hemorrhage, mass effect, or evidence of acute territorial ischemia by CT criteria. Petersen-white matter differentiation is preserved. No extra-axial fluid collection is seen. Ventricles, sulci, cisterns: Prominent secondary to involutional change. Intracranial vasculature: There is atherosclerotic calcification of the cavernous carotid and vertebr al arteries. Calvarium: Unremarkable. Sinuses and mastoids: There is near complete opacification of the right maxillary sinus. Thickening a nd sclerosis of the sinus wall indicates chronicity. There is trace mucosal thickening in the left ma xillary antrum and the anterior right ethmoid sinuses. There is a right mastoid effusion. The left ma stoid air cells are well pneumatized. Orbits: The bony orbits are grossly intact. There are bilateral ocular lens implants. IMPRESSION: There is no hemorrhage, mass effect, or evidence of acute territorial ischemia by CT carlyn skaggs. ACT 112: Negative or not required by law. Electronically signed by: Robert Izquierdo M.D. 03/14/2025 10:01 AM
--- NOTE | 2025-03-14 12:47 | Electrocardiogram Report ---
Test Reason : Blood Pressure : */* mmHG Vent. Rate : 69 BPM Atrial Rate : 69 BPM P-R Int : 130 ms QRS Dur : 84 ms QT Int : 402 ms P-R-T Axes : 51 19 45 degrees QTcB Int : 430 ms Normal sinus rhythm Normal ECG When compared with ECG of 12-Mar-2025 11:17, No significant change was found Confirmed by Sebastian Eaton ([id number]) on 03/14/2025 12:46:59 PM Referred By: REFERRED SELF Confirmed By: Sebastian Eaton
--- NOTE | 2025-03-14 13:16 | History & Physical Report ---
Date of Service March 14, 2025 Assessment & Plan (1) Jaw pain: (2) Hypomagnesemia: (3) Acute hypokalemia: (4) Chest pain, rule out acute myocardial infarction: (5) Dyspnea on exertion: (6) Acute viral laryngitis: Plan In summary this is a 79-year-old female admitted for observation due to concern of possible atypical presentation of coronary disease #Chest pain, rule out acute myocardial infarct // Hypertension // Hyperlipidemia Patient's symptoms awoke her from sleep on the morning of presentation and have been persistent since then; worsened with activity; no prior episodes of similar discomfort; initial EKG is not concerning for any acute changes nor is her troponin trend indicative of any acute coronary syndrome -Maintain continuous director of cardiac rehabilitation -Nursing to contact attending if patient develops recurrent or new anginal equivalent -Follow daily renal function panel, magnesium -Anticipate MPS #Hypokalemia and hypomagnesemia Noted to have hypokalemia and hypomagnesemia with initial laboratory assessment by emergency department provider with subsequent replacement; reassess on 03/15 #Acute viral laryngitis Continue azithromycin from previous emergency department presentation; withhold steroids at this time #Type II Diabetes mellitus with hyperglycemia Updated hemoglobin A1c pending; goal serum glucose of 140 for all preprandial checks and 180 for all random checks; with hold home regimen at the time of hospitalization with initiation of insulin therapy as below Start insulin glargine 7 units SQ twice daily Start aspart insulin with correction factor of 60 mg/dL/unit and carbohydrate ratio 20 g/unit Pharmacy consulted for additional management during hospitalization History of Present Illness Chief Complaint: Persistent jaw pain Primary Care Provider: Caitlin Aviles Ms. Bui is a 79 female whose active medical conditions include hypertension, hyperlipidemia, type 2 diabetes mellitus with hyperglycemia with recent emergency department evaluation due to acute viral laryngitis who presented to the [facility] [address] on 03/14 due to persistent jaw pain with radiation to the left anterior shoulder. The patient describes that they were awakened by this discomfort involving the bilateral mandibles as an "aching" pain that was persistent and slightly worsened with activity. During activity it did extend along her left neck into the left anterior shoulder and she did note some mild shortness of breath with activity. She denies any orthopnea, platypnea, palpitations, ayo chest pain, lower extremity swelling, medication changes other than recent initiation of ant ibiotics and steroids for her diagnosis of acute viral laryngitis. Allergies Allergy/AdvReac Type Severity Reaction Status Date / Time Iodinated Contrast Media Allergy Severe Anaphylaxis Verified 01/18/25 10:15 butorphanol [From Stadol] AdvReac Severe HALLUCINATI Verified 01/18/25 10:15 ONS codeine AdvReac Intermediate Gastrointestinal Verified 01/18/25 10:15 Upset Home Medications Medication Instructions Recorded Confirmed Type albuterol sulfate 90 mcg/actuation 1 puff inhalation DIRECTED PRN 07/14/21 03/14/25 History aerosol inhaler Shortness Of Breath Or Wheezing fluoxetine 40 mg capsule 40 mg PO QAM 07/14/21 03/14/25 History gabapentin 300 mg capsule 300 mg PO DAILY PRN RLS 07/14/21 03/14/25 History metformin 500 mg tablet 1,000 mg PO BID 07/14/21 03/14/25 History trazodone 50 mg tablet 50 mg PO HS PRN Sleep 07/14/21 03/14/25 History losartan 25 mg tablet 25 mg PO [facility] #30 tabs 07/18/21 03/14/25 Rx fluoxetine 20 mg capsule 20 mg PO QAM 12/30/21 03/14/25 History aspirin 81 mg capsule 81 mg PO QAM 06/10/23 03/14/25 History atorvastatin 40 mg tablet 40 mg PO .Q OTHER DAY 06/10/23 03/14/25 History diltiazem HCl 180 mg 180 mg PO QAM 06/10/23 03/14/25 History tablet,extended release 24 hr metoprolol succinate 50 mg 100 mg PO QAM 06/10/23 03/14/25 History tablet,extended release 24 hr multivitamin 1 tab PO QAM 06/10/23 03/14/25 History pantoprazole 40 mg tablet,delayed 40 mg PO QAM 06/10/23 03/14/25 History release (Protonix) glycerin (adult) 1 supp [place] BID PRN constipation #12 01/28/24 03/14/25 Rx ea ondansetron 4 mg disintegrating 4 - 8 mg (1 - 2 x 4 mg) PO Q6H PRN 01/28/24 03/14/25 Rx tablet nausea and vomiting #14 tabs sennosides 8.6 mg-docusate sodium 1 - 2 tab-cap (1 - 2 x 8.6-50 mg) 01/28/24 03/14/25 Rx 50 mg tablet (Senokot-S) PO BID PRN constipation #60 tabs bupropion HCl 100 mg tablet,12 hr 100 mg PO QAM 03/14/24 03/14/25 History sustained-release azithromycin 250 mg tablet 250 mg PO DAILY 4 days #4 tabs 03/12/25 03/14/25 Rx prednisone 50 mg tablet 50 mg PO DAILY 5 days #5 tabs 03/12/25 03/14/25 Rx Past Med/Surg History Problem List (Updated 03/14/25 @ 18:46 by Keven Fox DO) Acute viral laryngitis Chest pain, rule out acute myocardial infarction Hypomagnesemia (Acute) Acute hypokalemia (Acute) Jaw pain (Acute) Dyspnea on exertion Paroxysmal SVT (supraventricular tachycardia) Plantar fasciitis, right Greater trochanteric bursitis of right hip Hemochromatosis Keratosis HTN (hypertension) Anxiety DMII (diabetes mellitus, type 2) Asthma uses albuterol daily every am HLD (hyperlipidemia) Medical History HLD (hyperlipidemia) Diabetes HTN (hypertension) Anxiety Dyspnea Hx of chest pain Asthma Paroxysmal SVT (supraventricular tachycardia) Chronic kidney disease, stage 3b GERD (gastroesophageal reflux disease) Pulmonary nodule Depression History of esophageal dilatation Sleep apnea History of COVID-19 Hemochromatosis Surgical History History of abdominoplasty History of bilateral tubal ligation History of removal of cyst History of shoulder surgery History of colonoscopy History of ERCP History of total right hip replacement History of total left hip replacement History of tooth extraction History of tonsillectomy History of bilateral cataract extraction Hx of LASIK History of esophagogastroduodenoscopy (EGD) H/O: hysterectomy History of cholecystectomy Family History Other Diabetes Heart disease No family history of adverse response to anesthesia Social History Smoking Status: Never smoker Tobacco Type: Cigarettes Second Hand Exposure: No; Do You Dip or Chew Tobacco: No; Hx Alcohol Use: Yes Alcohol type: wine Alcohol Intake Frequency: 2-3 x/Week Hx Substance Use: No Preferred Language: [place]ib[place]ian Communication Ability: Effective Hearing Ability: Normal Miter Grinder Operator Required: No Beliefs That Will Affect Care: None marital status: Current Living Situation: Significant Other Current Living Situation Comment: 3 dogs, 1 cat current occupational status: retired How many Children do You have: 2 Feels Safe at Home: Yes Childhood Exposure to Second-Hand Smoke: Yes Diet: regular caffeine: Yes (1 cup of coffee every morning. Uses zero sugar when drinking soda. ) Dental Care, Regularly: No Physical Activity Frequency: Does not Exercise Seatbelt Use: always Sunscreen Use: Yes Do you think of yourself as: straight/heterosexual Gender Identity: Female Assistive Devices: CPAP and Glasses Review of Systems Review of Systems: Review of constitutional, cardiovascular, pulmonary, gastrointestinal systems was unremarkable except for pertinent positive and negative findings discussed above Physical Exam Physical Exam: General: Adult female in no acute distress Vital Signs: Reviewed HEENT: Moist mucous membranes Pulmonary: Symmetric chest wall excursion without restriction; clear to auscultation bilaterally Cardiovascular: Regular rate and rhythm without murmurs, rubs, or gallops; S1 and S2 normal; right radial pulse 2+; no notable lower extremity edema Gastrointestinal: Soft, nondistended Neurologic: Cranial nerves II through XII grossly intact; no discernible focal weakness no paresthesias Results & Data Results & Data Vital Signs (Past 12 Hours) Vital Signs Temp Pulse Pulse Resp BP BP Pulse Ox 03/14/25 12:36 37.1 C 62 18 178/85 H 95 03/14/25 12:22 58 L 03/14/25 12:00 58 L 16 169/87 H 94 03/14/25 11:00 57 L 20 176/89 H 93 03/14/25 10:51 57 L 16 94 03/14/25 10:42 56 L 16 96 03/14/25 10:30 60 17 93 03/14/25 10:21 58 L 17 93 03/14/25 10:12 63 16 95 03/14/25 10:00 60 14 96 03/14/25 10:00 190/91 H 03/14/25 10:00 190/91 H 03/14/25 10:00 190/91 H 03/14/25 10:00 190/91 H 03/14/25 10:00 190/91 H 03/14/25 09:59 194/85 H 03/14/25 09:42 70 16 92 03/14/25 09:30 63 16 94 03/14/25 09:21 61 13 95 03/14/25 09:21 03/14/25 09:12 64 13 93 03/14/25 09:00 185/87 H 03/14/25 09:00 185/87 H 03/14/25 09:00 185/87 H 03/14/25 09:00 185/87 H 03/14/25 09:00 185/87 H 03/14/25 09:00 185/87 H 03/14/25 09:00 185/87 H 03/14/25 09:00 185/87 H 03/14/25 09:00 185/87 H 03/14/25 09:00 62 14 97 03/14/25 08:51 66 17 92 03/14/25 08:42 65 13 93 03/14/25 08:30 65 22 93 03/14/25 08:21 66 14 03/14/25 07:51 69 17 99 03/14/25 07:43 70 03/14/25 07:41 98 03/14/25 07:41 36.7 C 73 18 202/107 H 99 03/14/25 07:34 O2 Del Method 03/14/25 12:36 Room Air 03/14/25 12:22 03/14/25 12:00 Room Air 03/14/25 11:00 Room Air 03/14/25 10:51 03/14/25 10:42 03/14/25 10:30 03/14/25 10:21 03/14/25 10:12 03/14/25 10:00 03/14/25 10:00 03/14/25 10:00 03/14/25 10:00 03/14/25 10:00 03/14/25 10:00 03/14/25 09:59 03/14/25 09:42 03/14/25 09:30 03/14/25 09:21 03/14/25 09:21 Room Air 03/14/25 09:12 03/14/25 09:00 03/14/25 09:00 03/14/25 09:00 03/14/25 09:00 03/14/25 09:00 03/14/25 09:00 03/14/25 09:00 03/14/25 09:00 03/14/25 09:00 03/14/25 09:00 03/14/25 08:51 03/14/25 08:42 03/14/25 08:30 03/14/25 08:21 03/14/25 07:51 03/14/25 07:43 03/14/25 07:41 Room Air 03/14/25 07:41 Room Air 03/14/25 07:34 Room Air Laboratory Results Unremarkable troponin trend for 3 measures ECG Additional Comments: Regular rate and rhythm; leftward axis; normal R wave progression; no significant ST changes nor evidence of ischemia Code Status & VTE Plan Code Status DNR/DNI PG Care Time/CCT Total # of Minutes Spent Total Time Spent with Patient: Total time spent is greater than 50% in coordination of care (as documented) at patient's floor/unit and/or counseling patient: Coding Level of Care Code 78632 INT INP/OBS CARE 2/55MIN Diagnoses Jaw pain R68.84 Hypomagnesemia E83.42 Acute hypokalemia E87.6 Chest pain, rule out acute myocardial infarction R07.9 Dyspnea on exertion R06.09 Acute viral laryngitis J04.0
[2025-03-14] MEDS: ACETAMINOPHEN 1,000 MG/100 ML VIAL IV SCH (15:39)
[2025-03-14] MEDS ORDERED: GLUCOSE 40% GEL 15 GM TUBE PO PRN (17:36)
[2025-03-14] MEDS ORDERED: GLUCAGON FOR INJ 1 MG VIAL SQ PRN (17:36)
[2025-03-14] MEDS ORDERED: GABAPENTIN 300 MG CAP PO PRN (17:36)
[2025-03-14] MEDS ORDERED: CARBOHYDRATES FOR HYPOGLYCEMIA PO PRN (17:36)
[2025-03-14] MEDS ORDERED: ALBUTEROL HFA 8 GM INHALER INH PRN (17:36)
[2025-03-14] MEDS ORDERED: DEXTROSE 50% 50 ML SYRINGE IV PRN (17:36)
[2025-03-14] MEDS ORDERED: GLUCOSE 10 TAB/TUBE PO PRN (17:36)
[2025-03-14] MEDS: INSULIN ASPART PER UNIT CHARGE SC SCH (19:29)
[2025-03-14] MEDS: ENOXAPARIN INJ 40 MG/0.4 ML SYR SQ SCH (19:45)
[2025-03-14] MEDS: ATORVASTATIN 40 MG TAB PO SCH (21:16)
[2025-03-14] MEDS: LANTUS PER UNIT CHARGE SQ SCH (22:08)
--- NOTE | 2025-03-15 06:49 | Hospitalist Progress Note ---
Date of Service March 15, 2025 Assessment & Plan Admission and Anticipated Discharge Date Admission Date: March 14, 2025 Results & Data Results & Data Vital Signs (Past 12 Hours) Vital Signs Temp Pulse Pulse Resp BP Pulse Ox O2 Del Method 03/15/25 02:40 36.4 C L 63 18 149/80 H 96 Room Air 03/14/25 22:55 36.4 C L 63 18 147/80 H 95 Room Air 03/14/25 20:46 65 03/14/25 20:40 36.4 C L 64 18 173/68 H 97 Room Air PG Care Time/CCT Total # of Minutes Spent Total Time Spent with Patient: Total time spent is greater than 50% in coordination of care (as documented) at patient's floor/unit and/or counseling patient: Coding
[2025-03-15 07:16] LABS: Hemoglobin A1C 6.1 % (4.5-5.6)
[2025-03-15] MEDS ORDERED: METOPROLOL SUCC 50MG EXT REL TAB PO SCH (09:00)
[2025-03-15] MEDS: REGADENOSON 0.4 MG/5 ML SYR IV ONE (10:35)
[2025-03-15 10:38] VITALS: O2SAT 95
[2025-03-15] MEDS: POLYETHYLENE (MIRALAX) 17 GM PACK PO SCH (10:40)
[2025-03-15] MEDS: METOPROLOL SUCC 50MG EXT REL TAB PO SCH (10:40)
[2025-03-15] MEDS: LOSARTAN POTASSIUM 25 MG TAB PO SCH (10:40)
[2025-03-15] MEDS: ASPIRIN 81 MG ECTAB PO SCH (10:40)
[2025-03-15] MEDS: AZITHROMYCIN 250 MG TAB PO SCH (10:40)
[2025-03-15 12:09] VITALS: BP 187/85; RESP 18; TEMP 98.1
--- NOTE | 2025-03-15 13:31 | Myocardial Perfusion Study ---
Date of Service March 15, 2025 Myocardial Perfusion Study Blk Myocardial Perfusion Study Report [place] Act 112: Negative One day nuclear medicine technetium 99m Cardiolite myocardial perfusion scan Clinical history: This stress test is being performed because of a chest pain syndrome Comparison: None Technique: For the stress portion of the study, 31.5 mCi of technetium 99m Cardiolite IV was injected at 9:40 AM on March 15, 2025. Thirty minutes following the injection, imaging of the heart was performed in multiple projections. For the rest portion of the study, 9.3 mCi of technetium 99m Cardiolite was injected IV at 8 AM on March 15, 2025. One hour following the injection, imaging of the heart was performed in the same projections. Stress portion: The patient was given 0.4 mg of intravenous Lexiscan while being monitored continuously. The patient did not experience chest discomfort. Baseline ECG notes normal sinus rhythm without abnormalities. There were no significant ST segment changes seen during the protocol. There were no dysrhythmias. Findings: The short axis, vertical long axis, and horizontal long axis images were reviewed in detail. There was normal myocardial perfusion at both stress and rest thus excluding a prior myocardial infarction or evidence of stress induced myocardial ischemia. The left ventricle demonstrates normal systolic function without wall motion abnormalities. The left ventricular ejection fraction is 70%. Conclusions: 1. No scintigraphic evidence of a prior myocardial infarction or stress-induced myocardial ischemia. 2. No Lexiscan-induced chest pain. 3. No ECG changes. 4. Normal left ventricular systolic function without wall motion abnormality. Left ventricular ejection fraction is 70%. [facility] Myocardial perfusion code Procedure Code Procedure 1: Myocardial Perfusion Codes: 11684 Cardiovascular Stress Test, multiple Procedure 2: Myocardial Perfusion Codes: 42275 Cardiovascular Stress Test, supervision only Procedure 3: Myocardial Perfusion Codes: 62306 Cardiovascular Stress Test, interpretation and report
[2025-03-15 14:20] VITALS: PULSE 69
--- NOTE | 2025-03-15 16:59 | Discharge Summary ---
Discharge Summary Date of Service March 15, 2025 Principal Dx & Hospital Course #1 = Principal Diagnosis (1) Jaw pain: (2) Hypomagnesemia: (3) Acute hypokalemia: (4) Chest pain, rule out acute myocardial infarction: (5) Dyspnea on exertion: (6) Acute viral laryngitis: Plan In summary this is a 79-year-old female admitted for observation due to concern of possible atypical presentation of coronary disease #Chest pain, rule out acute myocardial infarct // Hypertension // Hyperlipidemia Troponin trend and EKG at presentation were unremarkable however due to risk factors further assessment was pursued; MPS obtained 03/15 shows no abnormalities; suspect the patient's jaw pain is likely consequential of referred pain from their ongoing acute viral laryngitis; recommend that they continue treatment as previously established and follow-up with her primary care physician Admission HPI Per Admitting Provider Ms. Bui is a 79 female whose active medical conditions include hypertension, hyperlipidemia, type 2 diabetes mellitus with hyperglycemia with recent emergency department evaluation due to acute viral laryngitis who presented to the [facility] on 03/14 due to persistent jaw pain with radiation to the left anterior shoulder. The patient describes that they were awakened by this discomfort involving the bilateral mandibles as an "aching" pain that was persistent and slightly worsened with activity. During activity it did extend along her left neck into the left anterior shoulder and she did note some mild shortness of breath with activity. She denies any orthopnea, platypnea, palpitations, ayo chest pain, lower extremity swelling, medication changes other than recent initiation of antibiotics and steroids for her diagnosis of acute viral laryngitis. Discharge Exam General: Adult female in no acute distress Vital Signs: Reviewed HEENT: Moist mucous membranes Pulmonary: Symmetric chest wall excursion without restriction; clear to auscultation bilaterally Cardiovascular: Regular rate and rhythm without murmurs, rubs, or gallops; S1 and S2 normal; right radial pulse 2+; no notable lower extremity edema Gastrointestinal: Soft, nondistended Neurologic: Cranial nerves II through XII grossly intact; no discernible focal weakness no paresthesias Discharge Plan Discharge Items Patient Disposition: Home - Self-Care Reason For Visit: ACS RULE OUT Discharge Diagnosis: Anginal equivalent, acute coronary syndrome ruled out Condition on Discharge: Good Activity: Resume your previous activity Non-emergency contact: Primary Care Provider Call non-emergency contact if: you have any medication questions and your symptoms worsen Follow-up/Referrals: Caitlin Aviles PA-C [Primary Care Provider] - (Please call your primary care provider to schedule a hospital follow-up appointment within 7-10 days) Diet: Carb Consistent or DM2 and Low Fat Addtl Attending Provider Instructions: You were admitted to the [facility] for observation of symptoms concerning for a possible acute coronary syndrome, or heart attack. A myocardial perfusion study was performed to assess for any evidence of heart disease that would suggest need for further intervention or testing, which did not reveal any abnormalities. We suspect your discomfort is consequential of your ongoing laryngitis, and recommend continuation of your previously established medication regimen. Please follow up with your primary care provider within the next week to 10 days for continued care. Pending Studies at Discharge: No Stand-Alone Forms: My [facility] Medications and DC Order Prescriptions: Continued fluoxetine 20 mg capsule 20 mg PO QAM fluoxetine 40 mg capsule 40 mg PO QAM metformin 500 mg tablet 1,000 mg PO BID trazodone 50 mg tablet 50 mg PO HS PRN (Reason: Sleep) gabapentin 300 mg capsule 300 mg PO DAILY PRN (Reason: RLS) albuterol sulfate 90 mcg/actuation HFA aerosol inhaler 1 puff inhalation DIRECTED PRN (Reason: Shortness Of Breath Or Wheezing) losartan 25 mg Tablet 25 mg PO QAM Qty: 30 0RF sennosides-docusate sodium [Senokot-S] 8.6-50 mg tablet 1 - 2 tab-cap PO BID PRN (Reason: constipation) Qty: 60 2RF glycerin (adult) Suppository 1 supp [place] BID PRN (Reason: constipation) Qty: 12 1RF ondansetron 4 mg tablet,disintegrating 4 - 8 mg PO Q6H PRN (Reason: nausea and vomiting) Qty: 14 0RF prednisone 50 mg tablet 50 mg PO DAILY 5 Days Qty: 5 0RF azithromycin 250 mg tablet 250 mg PO DAILY 4 Days Qty: 4 0RF metoprolol succinate 50 mg Tablet Extended Release 24 Hr 100 mg PO QAM diltiazem HCl 180 mg Tablet Extended Release 24 Hr 180 mg PO QAM pantoprazole [Protonix] 40 mg tablet,delayed release (DR/EC) 40 mg PO QAM multivitamin Tablet 1 tab PO QAM atorvastatin 40 mg Tablet 40 mg PO .Q OTHER DAY aspirin 81 mg Capsule 81 mg PO QAM bupropion HCl 100 mg tablet sustained-release 12 hr 100 mg PO QAM Discharge Orders: Discharge Order (Routine); Ordered 03/15/25 Ordered By: Keven Soto/Other Patient Handouts: Managing Type 2 Diabetes Admission Data Admit Date/Time: 03/14/25 14:26 Attending Provider: Keven Fox Admit Provider: Keven Fox Primary Care Provider: Caitlin Aviles Other Providers: Keven Fox Other Interventions: Discharge Summary Assessment (RN) Last Done: 03/15/25 14:10 Hospital Stay Data Consultations 03/14/25 11:47 ED Decision to Admit Stat Diagnostic Imagining Performed 03/14/25 09:17 CT head/brain wo con Stat Pending Results Patient Have Any Pending Studies at Discharge: No Discharge Instructions Given to Patient (Per Discharging Provider) You were admitted to the [facility] for observation of symptoms concerning for a possible acute coronary syndrome, or heart attack. A myocardial perfusion study was performed to assess for any evidence of heart disease that would suggest need for further intervention or testing, which did not reveal any abnormalities. We suspect your discomfort is consequential of your ongoing laryngitis, and recommend continuation of your previously established medication regimen. Please follow up with your primary care provider within the next week to 10 days for continued care. Total Time Total Time Spent Total Time Spent (In Minutes): I personally spent 50 minutes in the coordination of today's discharge including bedside counseling, physical exam, medication reconciliation Coding Level of Care Code 04258 INP/OBS DISCH >30 MIN Diagnoses Jaw pain R68.84 Hypomagnesemia E83.42 Acute hypokalemia E87.6 Chest pain, rule out acute myocardial infarction R07.9 Dyspnea on exertion R06.09 Acute viral laryngitis J04.0
== END 2025-03-15 14:46 | disposition home or self-care (01) ==
LOC: EDINP 07:34 → ED 07:34 → 2N 17:36